=== PATIENT | male | born 1955 | race African-American/Black ===

== ENCOUNTER → 2016-06-02 | Outpatient (CLI) | payer MEDICARE, OTHER | LOC: RAD 08:24 | PROVIDERS: ATTEND Internal Medicine | DX: D48.0 Neoplasm of uncertain behavior of bone and articular cartilage (principal) | CPT/HCPCS: 78306; A9503; Q9969 ==

== ENCOUNTER → 2016-06-08 | Outpatient (CLI) | payer MEDICARE, OTHER | LOC: RAD 14:52 | PROVIDERS: ATTEND Internal Medicine | DX: D48.0 Neoplasm of uncertain behavior of bone and articular cartilage (principal) | CPT/HCPCS: 77075 ==

== ENCOUNTER → 2017-01-05 | Outpatient (CLI) | payer MEDICARE, OTHER ==
--- NOTE | 2017-01-05 17:25 | RADIOLOGY REPORT (SQ) ---
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 TECHNIQUE: Blood glucose level was verified. Above dose of FDG was injected intravenously. 2-D seg mented attenuation correction images were obtained from the base of the skull to the midthighs. Nonc ontrast CT images were obtained for attenuation correction and fusion with emission images. CT image s were performed without oral or intravenous contrast and are not sensitive for parenchymal lesions. A series of overlapping emission PET images were obtained. Images reviewed and manipulated at [facility] by the radiologist. Images stored on PACS. LIMITATIONS: None. FINDINGS: HEAD AND NECK: No areas of abnormal metabolic activity in the soft tissues of the head and neck. CHEST: No areas of abnormal metabolic activity in the chest. ABDOMEN AND PELVIS: No areas of abnormal metabolic activity in the abdomen or pelvis. Expected physi ologic activity is present in the genitourinary system and bowel. PROXIMAL LOWER EXTREMITIES: No areas of abnormal metabolic activity in the soft tissues of the lower extremities. BONES: No abnormal metabolic activity in the visualized skeleton. Coarse trabecular pattern is T12, hemangioma versus Paget's disease. This is similar compared to MRI 03/24/2008. ADDITION[address] CT FINDINGS: Post prostatectomy. Mild lower lumbar facet arthropathy. Multilevel lumbar degenerative disc changes OTHER: Liver background activity SUV 2.3. Blood pool background activity 1.9 SUV. IMPRESSION: No hypermetabolic lesions worrisome for metastatic disease TECHNICAL DOCUMENTATION: JOB ID: [id number] [employer]- All Rights Reserved
== END ==
LOC: RAD 10:07
PROVIDERS: ATTEND Internal Medicine
DX: C61 Malignant neoplasm of prostate (principal); D48.0 Neoplasm of uncertain behavior of bone and articular cartilage
CPT/HCPCS: 78815; A9552

== ENCOUNTER → 2017-09-07 | Outpatient (CLI) | payer MEDICARE, OTHER ==
[2017-09-07 11:30] LABS: ANION GAP 16 (5-19); BLOOD UREA NITROGEN 34 mg/dL (7-20); CALCIUM 9.5 mg/dL (8.4-10.2); CARBON DIOXIDE 25 mmol/L (22-30); CHLORIDE 107 mmol/L (98-107); GLUCOSE 102 mg/dL (75-110); POTASSIUM 5.2 mmol/L (3.6-5.0); SODIUM 147.7 mmol/L (137-145)
== END ==
LOC: OD 10:23
PROVIDERS: ATTEND Internal Medicine Nephrology
DX: N17.9 Acute kidney failure, unspecified (principal)
CPT/HCPCS: 36415; 80048

== ENCOUNTER → 2017-09-12 | Outpatient (CLI) | payer MEDICARE, OTHER ==
[2017-09-12 12:53] LABS: HEMOGLOBIN 11.7 g/dL (13.5-17.0); MEAN CORPUSCULAR HEMOGLOBIN 28.8 pg (27.0-33.4); MEAN CORPUSCULAR HGB CONC 33.4 g/dL (32.0-36.0); MEAN CORPUSCULAR VOLUME 86 fl (80-97); PLATELET COUNT 297 10^3/uL (150-450); RED BLOOD COUNT 4.06 10^6/uL (4.35-5.55); RED CELL DISTRIBUTION WIDTH 15.3 % (11.5-14.0); WHITE BLOOD COUNT 4.9 10^3/uL (4.0-10.5)
[2017-09-12 13:16] LABS: ALANINE AMINOTRANSFERASE 28 U/L (21-72); ALBUMIN 4.9 g/dL (3.5-5.0); ALKALINE PHOSPHATASE 76 U/L (38-126); ANION GAP 18 (5-19); ASPARTATE AMINO TRANSFERASE 22 U/L (17-59); BILIRUBIN,DIRECT 0.2 mg/dL (0.0-0.4); BILIRUBIN,TOTAL 0.2 mg/dL (0.2-1.3); BLOOD UREA NITROGEN 28 mg/dL (7-20); CALCIUM 10.4 mg/dL (8.4-10.2); CARBON DIOXIDE 26 mmol/L (22-30); CHLORIDE 105 mmol/L (98-107); GLUCOSE 101 mg/dL (75-110); POTASSIUM 4.9 mmol/L (3.6-5.0); SODIUM 148.9 mmol/L (137-145); TOTAL PROTEIN 8.1 g/dL (6.3-8.2)
== END ==
LOC: OD 11:47
PROVIDERS: ATTEND Psychiatry & Neurology Neurology
DX: Z79.899 Other long term (current) drug therapy (principal); G40.909 Epilepsy, unspecified, not intractable, without status epilepticus
CPT/HCPCS: 36415; 80053; 80164; 80175; 85027

== ENCOUNTER → 2017-12-06 | Outpatient (CLI) | payer MEDICARE, OTHER ==
[2017-12-06 11:46] LABS: ABSOLUTE EOSINOPHILS # (AUTO) 0.3 10^3/uL (0.0-0.6); ABSOLUTE LYMPHOCYTES (AUTO) 1.9 10^3/uL (0.5-4.7); ABSOLUTE MONOCYTES (AUTO) 0.7 10^3/uL (0.1-1.4); BASOPHILS % (AUTO) 0.9 % (0-2); EOSINOPHILS % (AUTO) 6.8 % (0-6); HEMATOCRIT 35.7 % (37.9-51.0); HEMOGLOBIN 11.6 g/dL (13.5-17.0); LYMPHOCYTES % (AUTO) 38.2 % (13-45); MEAN CORPUSCULAR HEMOGLOBIN 28.4 pg (27.0-33.4); MEAN CORPUSCULAR HGB CONC 32.5 g/dL (32.0-36.0); MEAN CORPUSCULAR VOLUME 87 fl (80-97); PLATELET COUNT 280 10^3/uL (150-450); RED BLOOD COUNT 4.09 10^6/uL (4.35-5.55); RED CELL DISTRIBUTION WIDTH 15.6 % (11.5-14.0); SEGMENTED NEUTROPHILS % (AUTO) 40.1 % (42-78); TOTAL CELLS COUNTED % (AUTO) 100 %
[2017-12-06 12:44] LABS: ALBUMIN 4.7 g/dL (3.5-5.0); ANION GAP 14 (5-19); BLOOD UREA NITROGEN 26 mg/dL (7-20); CALCIUM 9.8 mg/dL (8.4-10.2); CARBON DIOXIDE 26 mmol/L (22-30); CHLORIDE 105 mmol/L (98-107); GLUCOSE 85 mg/dL (75-110); PHOSPHORUS 4.9 mg/dL (2.5-4.5); POTASSIUM 5.1 mmol/L (3.6-5.0); SODIUM 144.6 mmol/L (137-145); URIC ACID 4.6 mg/dL (3.5-8.5)
[2017-12-07 11:40] LABS: CREATININE URINE 178.1 mg/dL (Not Estab.)
[2017-12-08 12:15] LABS: MICROALBUMIN URINE 485.2 ug/mL (Not Estab.)
== END ==
LOC: OD 10:38
PROVIDERS: ATTEND Internal Medicine Nephrology
DX: N18.4 Chronic kidney disease, stage 4 (severe) (principal); E11.21 Type 2 diabetes mellitus with diabetic nephropathy; N25.81 Secondary hyperparathyroidism of renal origin; D63.1 Anemia in chronic kidney disease
CPT/HCPCS: 36415; 80048; 82040; 82043; 82306; 82570; 83970; 84100; 84550; 85025

== ENCOUNTER → 2018-06-20 | Outpatient (CLI) | payer MEDICARE, OTHER ==
[2018-06-20 07:52] LABS: ABSOLUTE EOSINOPHILS # (AUTO) 0.1 10^3/uL (0.0-0.6); ABSOLUTE LYMPHOCYTES (AUTO) 1.5 10^3/uL (0.5-4.7); ABSOLUTE MONOCYTES (AUTO) 0.4 10^3/uL (0.1-1.4); ABSOLUTE NEUT (AUTO) 1.8 10^3/uL (1.7-8.2); BASOPHILS % (AUTO) 0.9 % (0-2); EOSINOPHILS % (AUTO) 3.5 % (0-6); HEMATOCRIT 33.8 % (37.9-51.0); HEMOGLOBIN 11.3 g/dL (13.5-17.0); LYMPHOCYTES % (AUTO) 37.9 % (13-45); MEAN CORPUSCULAR HEMOGLOBIN 29.3 pg (27.0-33.4); MEAN CORPUSCULAR HGB CONC 33.4 g/dL (32.0-36.0); MEAN CORPUSCULAR VOLUME 88 fl (80-97); MONOCYTES % (AUTO) 11.1 % (3-13); PLATELET COUNT 279 10^3/uL (150-450); RED BLOOD COUNT 3.85 10^6/uL (4.35-5.55); RED CELL DISTRIBUTION WIDTH 15.7 % (11.5-14.0); SEGMENTED NEUTROPHILS % (AUTO) 46.6 % (42-78); TOTAL CELLS COUNTED % (AUTO) 100 %; WHITE BLOOD COUNT 3.9 10^3/uL (4.0-10.5)
[2018-06-20 08:09] LABS: APPEARANCE,URINE CLEAR; BILIRUBIN,URINE NEGATIVE (NEGATIVE); COLOR,URINE YELLOW; GLUCOSE, URINE NEGATIVE (NEGATIVE); KETONES,URINE NEGATIVE (NEGATIVE); LEUKOCYTE ESTERASE,URINE NEGATIVE (NEGATIVE); NITRITE,URINE NEGATIVE (NEGATIVE); PROTEIN,URINE 100 mg/dL (NEGATIVE); URINE SPECIFIC GRAVITY 1.015; UROBILINOGEN,URINE NEGATIVE mg/dL (<2.0)
[2018-06-20 08:10] LABS: ANION GAP 8 (5-19); BLOOD UREA NITROGEN 27 mg/dL (7-20); CALCIUM 9.6 mg/dL (8.4-10.2); CARBON DIOXIDE 30 mmol/L (22-30); CHLORIDE 106 mmol/L (98-107); GLUCOSE 97 mg/dL (75-110); POTASSIUM 4.6 mmol/L (3.6-5.0); SODIUM 144.4 mmol/L (137-145); URIC ACID 3.7 mg/dL (3.5-8.5)
[2018-06-21 12:38] LABS: CREATININE URINE 180.1 mg/dL (Not Estab.)
[2018-06-21 12:42] LABS: MICROALBUMIN URINE 1143.9 ug/mL (Not Estab.)
== END ==
LOC: OD 07:19
PROVIDERS: ATTEND Internal Medicine Nephrology
DX: E11.22 Type 2 diabetes mellitus with diabetic chronic kidney disease (principal); N18.4 Chronic kidney disease, stage 4 (severe); E11.21 Type 2 diabetes mellitus with diabetic nephropathy; D63.1 Anemia in chronic kidney disease; N25.81 Secondary hyperparathyroidism of renal origin; M10.9 Gout, unspecified
CPT/HCPCS: 36415; 80048; 81001; 82043; 82570; 83970; 84550; 85025

== ENCOUNTER → 2018-08-12 | Outpatient (CLI) | payer MEDICARE, OTHER ==
[2018-08-12 08:57] LABS: ABSOLUTE EOSINOPHILS # (AUTO) 0.2 10^3/uL (0.0-0.6); ABSOLUTE LYMPHOCYTES (AUTO) 1.4 10^3/uL (0.5-4.7); ABSOLUTE MONOCYTES (AUTO) 0.5 10^3/uL (0.1-1.4); ABSOLUTE NEUT (AUTO) 1.7 10^3/uL (1.7-8.2); BASOPHILS % (AUTO) 1.1 % (0-2); EOSINOPHILS % (AUTO) 4.3 % (0-6); HEMATOCRIT 31.7 % (37.9-51.0); HEMOGLOBIN 10.7 g/dL (13.5-17.0); LYMPHOCYTES % (AUTO) 37.1 % (13-45); MEAN CORPUSCULAR HGB CONC 33.7 g/dL (32.0-36.0); MEAN CORPUSCULAR VOLUME 89 fl (80-97); MONOCYTES % (AUTO) 13.3 % (3-13); PLATELET COUNT 252 10^3/uL (150-450); RED BLOOD COUNT 3.55 10^6/uL (4.35-5.55); RED CELL DISTRIBUTION WIDTH 15.7 % (11.5-14.0); SEGMENTED NEUTROPHILS % (AUTO) 44.2 % (42-78); TOTAL CELLS COUNTED % (AUTO) 100 %; WHITE BLOOD COUNT 3.9 10^3/uL (4.0-10.5)
[2018-08-12 09:18] LABS: ALANINE AMINOTRANSFERASE 23 U/L (21-72); ALBUMIN 4.1 g/dL (3.5-5.0); ALKALINE PHOSPHATASE 75 U/L (38-126); ANION GAP 9 (5-19); ASPARTATE AMINO TRANSFERASE 25 U/L (17-59); BILIRUBIN,DIRECT 0.2 mg/dL (0.0-0.4); BILIRUBIN,TOTAL 0.2 mg/dL (0.2-1.3); BLOOD UREA NITROGEN 39 mg/dL (7-20); CALCIUM 9.5 mg/dL (8.4-10.2); CARBON DIOXIDE 28 mmol/L (22-30); CHLORIDE 101 mmol/L (98-107); CHOLESTEROL 162.53 mg/dL (0-200); GLUCOSE 84 mg/dL (75-110); TRIGLYCERIDES 88 mg/dL (<150)
[2018-08-12 09:29] LABS: DIRECT LDL 55 mg/dL (<100)
== END ==
LOC: OD 07:18
PROVIDERS: ATTEND Psychiatry & Neurology Psychiatry
DX: Z79.899 Other long term (current) drug therapy (principal); F41.1 Generalized anxiety disorder; F33.9 Major depressive disorder, recurrent, unspecified; F40.01 Agoraphobia with panic disorder; F51.01 Primary insomnia; F43.10 Post-traumatic stress disorder, unspecified
CPT/HCPCS: 36415; 80053; 80061; 84443; 85025

== ENCOUNTER → 2018-09-19 | Outpatient (CLI) | payer MEDICARE, OTHER ==
[2018-09-19 08:24] LABS: ABSOLUTE EOSINOPHILS # (AUTO) 0.2 10^3/uL (0.0-0.6); ABSOLUTE MONOCYTES (AUTO) 0.6 10^3/uL (0.1-1.4); ABSOLUTE NEUT (AUTO) 2.1 10^3/uL (1.7-8.2); BASOPHILS % (AUTO) 0.8 % (0-2); EOSINOPHILS % (AUTO) 3.7 % (0-6); HEMATOCRIT 31.6 % (37.9-51.0); HEMOGLOBIN 10.5 g/dL (13.5-17.0); MEAN CORPUSCULAR HEMOGLOBIN 29.9 pg (27.0-33.4); MEAN CORPUSCULAR HGB CONC 33.3 g/dL (32.0-36.0); MEAN CORPUSCULAR VOLUME 90 fl (80-97); MONOCYTES % (AUTO) 11.4 % (3-13); PLATELET COUNT 315 10^3/uL (150-450); RED BLOOD COUNT 3.52 10^6/uL (4.35-5.55); RED CELL DISTRIBUTION WIDTH 14.9 % (11.5-14.0); SEGMENTED NEUTROPHILS % (AUTO) 43.1 % (42-78); TOTAL CELLS COUNTED % (AUTO) 100 %; WHITE BLOOD COUNT 4.9 10^3/uL (4.0-10.5)
[2018-09-19 08:44] LABS: ALBUMIN 4.7 g/dL (3.5-5.0); ANION GAP 10 (5-19); BLOOD UREA NITROGEN 37 mg/dL (7-20); CALCIUM 10.4 mg/dL (8.4-10.2); CARBON DIOXIDE 28 mmol/L (22-30); CHLORIDE 104 mmol/L (98-107); GLUCOSE 99 mg/dL (75-110); IRON(TIBC) 57.2 ug/dL (49-181); PHOSPHORUS 5.2 mg/dL (2.5-4.5); POTASSIUM 4.6 mmol/L (3.6-5.0); URIC ACID 5.6 mg/dL (3.5-8.5)
[2018-09-20 12:37] LABS: CREATININE URINE 132.2 mg/dL (Not Estab.)
[2018-09-22 19:10] LABS: MICROALBUMIN URINE 897.7 ug/mL (Not Estab.)
== END ==
LOC: OD 07:37
PROVIDERS: ATTEND Internal Medicine Nephrology
DX: N18.4 Chronic kidney disease, stage 4 (severe) (principal); D64.9 Anemia, unspecified
CPT/HCPCS: 36415; 80069; 82043; 82306; 82570; 82728; 83540; 83550; 83970; 84550; 85025

== ENCOUNTER → 2018-12-26 | Outpatient (CLI) | payer MEDICARE, OTHER ==
[2018-12-26 13:17] LABS: ABSOLUTE LYMPHOCYTES (AUTO) 1.2 10^3/uL (0.5-4.7); ABSOLUTE MONOCYTES (AUTO) 1.1 10^3/uL (0.1-1.4); ABSOLUTE NEUT (AUTO) 7.4 10^3/uL (1.7-8.2); BASOPHILS % (AUTO) 0.3 % (0-2); HEMATOCRIT 30.6 % (37.9-51.0); HEMOGLOBIN 10.2 g/dL (13.5-17.0); LYMPHOCYTES % (AUTO) 12.6 % (13-45); MEAN CORPUSCULAR HEMOGLOBIN 30.4 pg (27.0-33.4); MEAN CORPUSCULAR HGB CONC 33.5 g/dL (32.0-36.0); MEAN CORPUSCULAR VOLUME 91 fl (80-97); MONOCYTES % (AUTO) 11.6 % (3-13); PLATELET COUNT 289 10^3/uL (150-450); RED BLOOD COUNT 3.37 10^6/uL (4.35-5.55); RED CELL DISTRIBUTION WIDTH 16.2 % (11.5-14.0); SEGMENTED NEUTROPHILS % (AUTO) 75.5 % (42-78); TOTAL CELLS COUNTED % (AUTO) 100 %; WHITE BLOOD COUNT 9.7 10^3/uL (4.0-10.5)
[2018-12-26 13:24] LABS: ANION GAP 9 (5-19); BLOOD UREA NITROGEN 48 mg/dL (7-20); CALCIUM 9.7 mg/dL (8.4-10.2); CARBON DIOXIDE 20 mmol/L (22-30); CHLORIDE 110 mmol/L (98-107); GLUCOSE 112 mg/dL (75-110); PHOSPHORUS 4.3 mg/dL (2.5-4.5); POTASSIUM 4.7 mmol/L (3.6-5.0)
== END ==
LOC: OD 11:49
PROVIDERS: ATTEND Internal Medicine Nephrology
DX: E11.22 Type 2 diabetes mellitus with diabetic chronic kidney disease (principal); I12.9 Hypertensive chronic kidney disease with stage 1 through stage 4 chronic kidney disease, or unspecified chronic kidney disease; N18.4 Chronic kidney disease, stage 4 (severe); D63.1 Anemia in chronic kidney disease; R80.9 Proteinuria, unspecified
CPT/HCPCS: 36415; 80048; 82043; 82570; 84100; 85025

== ENCOUNTER → 2019-03-24 | Outpatient (CLI) | payer MEDICARE, OTHER ==
[2019-03-24 08:32] LABS: HEMATOCRIT 27.9 % (37.9-51.0); HEMOGLOBIN 9.4 g/dL (13.5-17.0); MEAN CORPUSCULAR HEMOGLOBIN 32.6 pg (27.0-33.4); MEAN CORPUSCULAR HGB CONC 33.6 g/dL (32.0-36.0); MEAN CORPUSCULAR VOLUME 97 fl (80-97); PLATELET COUNT 221 10^3/uL (150-450); RED BLOOD COUNT 2.88 10^6/uL (4.35-5.55); RED CELL DISTRIBUTION WIDTH 17.7 % (11.5-14.0)
[2019-03-24 08:32] LABS: APPEARANCE,URINE CLEAR; BILIRUBIN,URINE NEGATIVE (NEGATIVE); COLOR,URINE YELLOW; GLUCOSE, URINE NEGATIVE (NEGATIVE); KETONES,URINE NEGATIVE (NEGATIVE); LEUKOCYTE ESTERASE,URINE NEGATIVE (NEGATIVE); NITRITE,URINE NEGATIVE (NEGATIVE); PROTEIN,URINE 30 mg/dL (NEGATIVE); URINE SPECIFIC GRAVITY 1.014; UROBILINOGEN,URINE NEGATIVE mg/dL (<2.0)
[2019-03-24 08:42] LABS: WHITE BLOOD COUNT 1.6 10^3/uL (4.0-10.5)
[2019-03-24 09:01] LABS: ABSOLUTE LYMPHOCYTES# (MANUAL) 0.2 10^3/uL (0.5-4.7); ABSOLUTE MONOCYTES # (MANUAL) 0.5 10^3/uL (0.1-1.4); ALBUMIN 3.7 g/dL (3.5-5.0); ANION GAP 6 (5-19); BASOPHILS % (MANUAL) 0 % (0-2); BLOOD UREA NITROGEN 27 mg/dL (7-20); CARBON DIOXIDE 29 mmol/L (22-30); CHLORIDE 105 mmol/L (98-107); EOSINOPHILS % (MANUAL) 12 % (0-6); GLUCOSE 87 mg/dL (75-110); LYMPHOCYTES % (MANUAL) 14 % (13-45); MONOCYTES % (MANUAL) 32 % (3-13); POTASSIUM 4.6 mmol/L (3.6-5.0); SEGMENTED NEUTROPHILS % (MAN) 42 % (42-78); TOTAL CELLS COUNTED 50
[2019-03-24 09:05] LABS: ANISOCYTOSIS 1+; PLATELET COMMENT ADEQUATE
[2019-03-25 10:09] LABS: PATH REVIEW PATHOLOGIST REVIEWED
[2019-03-25 14:37] LABS: CREATININE URINE 173.2 mg/dL (Not Estab.); MICROALBUMIN URINE 175.2 ug/mL (Not Estab.)
== END ==
LOC: OD 08:06
PROVIDERS: ATTEND Internal Medicine Nephrology
DX: I12.9 Hypertensive chronic kidney disease with stage 1 through stage 4 chronic kidney disease, or unspecified chronic kidney disease (principal); N18.4 Chronic kidney disease, stage 4 (severe); E11.22 Type 2 diabetes mellitus with diabetic chronic kidney disease; D63.1 Anemia in chronic kidney disease; N25.81 Secondary hyperparathyroidism of renal origin
CPT/HCPCS: 36415; 80069; 81001; 82043; 82306; 82570; 83970; 85025

== ENCOUNTER → 2019-06-02 | Outpatient (CLI) | payer MEDICARE, OTHER ==
[2019-06-02 10:11] LABS: HEMATOCRIT 28.5 % (37.9-51.0); HEMOGLOBIN 9.5 g/dL (13.5-17.0); MEAN CORPUSCULAR HEMOGLOBIN 31.4 pg (27.0-33.4); MEAN CORPUSCULAR HGB CONC 33.3 g/dL (32.0-36.0); MEAN CORPUSCULAR VOLUME 94 fl (80-97); PLATELET COUNT 170 10^3/uL (150-450); RED BLOOD COUNT 3.02 10^6/uL (4.35-5.55); RED CELL DISTRIBUTION WIDTH 19.6 % (11.5-14.0)
[2019-06-02 10:33] LABS: ANION GAP 11 (5-19); BLOOD UREA NITROGEN 37 mg/dL (7-20); CALCIUM 9.5 mg/dL (8.4-10.2); CARBON DIOXIDE 23 mmol/L (22-30); CHLORIDE 105 mmol/L (98-107); GLUCOSE 100 mg/dL (75-110); POTASSIUM 4.6 mmol/L (3.6-5.0)
[2019-06-02 10:35] LABS: WHITE BLOOD COUNT 1.6 10^3/uL (4.0-10.5)
[2019-06-02 10:38] LABS: ABSOLUTE LYMPHOCYTES# (MANUAL) 0.4 10^3/uL (0.5-4.7); ABSOLUTE MONOCYTES # (MANUAL) 0.3 10^3/uL (0.1-1.4); BASOPHILS % (MANUAL) 0 % (0-2); EOSINOPHILS % (MANUAL) 8 % (0-6); LYMPHOCYTES % (MANUAL) 24 % (13-45); MONOCYTES % (MANUAL) 18 % (3-13); SEGMENTED NEUTROPHILS % (MAN) 50 % (42-78); TOTAL CELLS COUNTED 50
[2019-06-02 10:40] LABS: ANISOCYTOSIS 2+; OVALOCYTES SLIGHT; PLATELET COMMENT ADEQUATE; POIKILOCYTOSIS 1+; POLYCHROMASIA SLIGHT; SCHISTOCYTES 1+; TEAR DROP CELLS SLIGHT
[2019-06-03 11:23] LABS: PATH REVIEW PATHOLOGIST REVIEWED
[2019-06-03 14:36] LABS: CREATININE URINE 195.6 mg/dL (Not Estab.); MICROALBUMIN URINE 131.5 ug/mL (Not Estab.)
== END ==
LOC: OD 09:38
PROVIDERS: ATTEND Internal Medicine Nephrology
DX: E11.22 Type 2 diabetes mellitus with diabetic chronic kidney disease (principal); I12.9 Hypertensive chronic kidney disease with stage 1 through stage 4 chronic kidney disease, or unspecified chronic kidney disease; N18.4 Chronic kidney disease, stage 4 (severe); D63.1 Anemia in chronic kidney disease; N25.81 Secondary hyperparathyroidism of renal origin
CPT/HCPCS: 36415; 80048; 82043; 82570; 83970; 85025

== ENCOUNTER → 2019-09-17 | Outpatient (CLI) | payer MEDICARE, OTHER ==
[2019-09-17 09:25] LABS: HEMATOCRIT 31.8 % (37.9-51.0); HEMOGLOBIN 11.1 g/dL (13.5-17.0); MEAN CORPUSCULAR HEMOGLOBIN 32.4 pg (27.0-33.4); MEAN CORPUSCULAR VOLUME 93 fl (80-97); PLATELET COUNT 237 10^3/uL (150-450); RED BLOOD COUNT 3.43 10^6/uL (4.35-5.55); RED CELL DISTRIBUTION WIDTH 15.5 % (11.5-14.0)
[2019-09-17 09:42] LABS: ALBUMIN 4.4 g/dL (3.5-5.0); ALKALINE PHOSPHATASE 40 U/L (38-126); ANION GAP 10 (5-19); ASPARTATE AMINO TRANSFERASE 17 U/L (17-59); BILIRUBIN,TOTAL 0.2 mg/dL (0.2-1.3); BLOOD UREA NITROGEN 38 mg/dL (7-20); CALCIUM 10.2 mg/dL (8.4-10.2); CARBON DIOXIDE 21 mmol/L (22-30); CHLORIDE 109 mmol/L (98-107); GLUCOSE 94 mg/dL (75-110); POTASSIUM 4.1 mmol/L (3.6-5.0); TOTAL PROTEIN 7.1 g/dL (6.3-8.2)
== END ==
LOC: OD 08:40
PROVIDERS: ATTEND Psychiatry & Neurology Neurology
DX: G40.909 Epilepsy, unspecified, not intractable, without status epilepticus (principal)
CPT/HCPCS: 36415; 80053; 80164; 80175; 85027

== ENCOUNTER → 2019-09-26 | Outpatient (CLI) | payer MEDICARE, OTHER ==
[2019-09-26 08:28] LABS: ABSOLUTE EOSINOPHILS # (AUTO) 0.2 10^3/uL (0.0-0.6); ABSOLUTE LYMPHOCYTES (AUTO) 1.2 10^3/uL (0.5-4.7); ABSOLUTE MONOCYTES (AUTO) 0.7 10^3/uL (0.1-1.4); ABSOLUTE NEUT (AUTO) 1.6 10^3/uL (1.7-8.2); BASOPHILS % (AUTO) 0.9 % (0-2); EOSINOPHILS % (AUTO) 5.2 % (0-6); HEMATOCRIT 31.5 % (37.9-51.0); HEMOGLOBIN 10.8 g/dL (13.5-17.0); LYMPHOCYTES % (AUTO) 32.2 % (13-45); MEAN CORPUSCULAR HEMOGLOBIN 31.4 pg (27.0-33.4); MEAN CORPUSCULAR HGB CONC 34.4 g/dL (32.0-36.0); MEAN CORPUSCULAR VOLUME 92 fl (80-97); MONOCYTES % (AUTO) 18.8 % (3-13); PLATELET COUNT 222 10^3/uL (150-450); RED BLOOD COUNT 3.44 10^6/uL (4.35-5.55); RED CELL DISTRIBUTION WIDTH 15.5 % (11.5-14.0); SEGMENTED NEUTROPHILS % (AUTO) 42.9 % (42-78); TOTAL CELLS COUNTED % (AUTO) 100 %; WHITE BLOOD COUNT 3.6 10^3/uL (4.0-10.5)
[2019-09-26 08:45] LABS: ALBUMIN 4.3 g/dL (3.5-5.0); ANION GAP 13 (5-19); BLOOD UREA NITROGEN 32 mg/dL (7-20); CALCIUM 9.6 mg/dL (8.4-10.2); CARBON DIOXIDE 19 mmol/L (22-30); CHLORIDE 108 mmol/L (98-107); GLUCOSE 106 mg/dL (75-110); PHOSPHORUS 4.8 mg/dL (2.5-4.5); POTASSIUM 4.6 mmol/L (3.6-5.0)
[2019-09-26 09:54] LABS: APPEARANCE,URINE CLEAR; BILIRUBIN,URINE NEGATIVE (NEGATIVE); COLOR,URINE YELLOW; GLUCOSE, URINE NEGATIVE (NEGATIVE); KETONES,URINE NEGATIVE (NEGATIVE); LEUKOCYTE ESTERASE,URINE NEGATIVE (NEGATIVE); NITRITE,URINE NEGATIVE (NEGATIVE); PROTEIN,URINE 100 mg/dL (NEGATIVE); URINE SPECIFIC GRAVITY 1.015; UROBILINOGEN,URINE NEGATIVE mg/dL (<2.0)
[2019-09-27 13:37] LABS: CREATININE URINE 177.4 mg/dL (Not Estab.)
[2019-09-28 08:34] LABS: MICROALBUMIN URINE 476.5 ug/mL (Not Estab.)
== END ==
LOC: OD 08:06
PROVIDERS: ATTEND Internal Medicine Nephrology
DX: E11.22 Type 2 diabetes mellitus with diabetic chronic kidney disease (principal); I12.9 Hypertensive chronic kidney disease with stage 1 through stage 4 chronic kidney disease, or unspecified chronic kidney disease; N18.4 Chronic kidney disease, stage 4 (severe); N25.81 Secondary hyperparathyroidism of renal origin; D64.9 Anemia, unspecified
CPT/HCPCS: 36415; 80069; 81001; 82043; 82306; 82570; 83970; 85025

== ENCOUNTER → 2020-02-05 | Outpatient (CLI) | payer MEDICARE, OTHER ==
[2020-02-05 08:36] LABS: ABSOLUTE EOSINOPHILS # (AUTO) 0.2 10^3/uL (0.0-0.6); ABSOLUTE LYMPHOCYTES (AUTO) 0.9 10^3/uL (0.5-4.7); ABSOLUTE MONOCYTES (AUTO) 0.7 10^3/uL (0.1-1.4); ABSOLUTE NEUT (AUTO) 1.9 10^3/uL (1.7-8.2); BASOPHILS % (AUTO) 1.1 % (0-2); EOSINOPHILS % (AUTO) 5.9 % (0-6); HEMATOCRIT 32.2 % (37.9-51.0); HEMOGLOBIN 11.3 g/dL (13.5-17.0); LYMPHOCYTES % (AUTO) 24.5 % (13-45); MEAN CORPUSCULAR HEMOGLOBIN 31.8 pg (27.0-33.4); MEAN CORPUSCULAR HGB CONC 34.9 g/dL (32.0-36.0); MEAN CORPUSCULAR VOLUME 91 fl (80-97); MONOCYTES % (AUTO) 18.9 % (3-13); PLATELET COUNT 228 10^3/uL (150-450); RED BLOOD COUNT 3.54 10^6/uL (4.35-5.55); RED CELL DISTRIBUTION WIDTH 14.6 % (11.5-14.0); SEGMENTED NEUTROPHILS % (AUTO) 49.6 % (42-78); TOTAL CELLS COUNTED % (AUTO) 100 %; WHITE BLOOD COUNT 3.8 10^3/uL (4.0-10.5)
[2020-02-05 08:51] LABS: APPEARANCE,URINE CLEAR; BILIRUBIN,URINE NEGATIVE (NEGATIVE); COLOR,URINE STRAW; GLUCOSE, URINE NEGATIVE (NEGATIVE); KETONES,URINE NEGATIVE (NEGATIVE); LEUKOCYTE ESTERASE,URINE NEGATIVE (NEGATIVE); NITRITE,URINE NEGATIVE (NEGATIVE); PROTEIN,URINE 30 mg/dL (NEGATIVE); URINE SPECIFIC GRAVITY 1.011; UROBILINOGEN,URINE NEGATIVE mg/dL (<2.0)
[2020-02-05 09:02] LABS: ALBUMIN 4.6 g/dL (3.5-5.0); ANION GAP 13 (5-19); BLOOD UREA NITROGEN 43 mg/dL (7-20); CALCIUM 10.1 mg/dL (8.4-10.2); CARBON DIOXIDE 20 mmol/L (22-30); CHLORIDE 109 mmol/L (98-107); GLUCOSE 105 mg/dL (75-110); IRON(TIBC) 63.4 ug/dL (49-181); PHOSPHORUS 4.2 mg/dL (2.5-4.5); POTASSIUM 4.9 mmol/L (3.6-5.0)
[2020-02-06 11:37] LABS: CREATININE URINE 95.6 mg/dL (Not Estab.); MICROALBUMIN URINE 254.7 ug/mL (Not Estab.)
== END ==
LOC: OD 08:12
PROVIDERS: ATTEND Internal Medicine Nephrology
DX: N18.4 Chronic kidney disease, stage 4 (severe) (principal); D63.1 Anemia in chronic kidney disease
CPT/HCPCS: 36415; 80069; 81001; 82043; 82306; 82570; 83540; 83550; 83970; 85025

== ENCOUNTER 2020-05-24 05:29 | Day surgery (SDC) | payer MEDICARE, OTHER ==
--- NOTE | 2020-05-20 20:02 | EKG REPORT ---
SEVERITY:- ABNORMAL ECG - SINUS RHYTHM PROBABLE ANTEROSEPTAL INFARCT, OLD : Confirmed by: Fatou Wakefield MD 20-May-2020 20:01:16
[~2020-05-24 05:29] MED LIST: CEFAZOLIN 2 GM/D5W RTU 2 GM/50 ML RTUPB IV PRN; NORMAL SALINE 1000 ML (RENAL PATIENTS) IV PRN
[2020-05-24] MEDS ORDERED: CEFAZOLIN 2 GM/D5W RTU 2 GM/50 ML RTUPB IV ONE (05:51)
[2020-05-24] MEDS ORDERED: LIDOCAINE 0.5% INJ-PF (5 MG/ML) 50 ML SDV ONE (06:16)
[2020-05-24] MEDS ORDERED: FENTANYL CITRATE INJ/PF 100 MCG/2 ML AMPUL ONE (06:17)
[2020-05-24] MEDS ORDERED: MIDAZOLAM 2 MG/2 ML INJ ONE (06:17)
[2020-05-24] MEDS ORDERED: ONDANSETRON HCL INJ/PF 4 MG/2 ML SDV ONE (06:17)
[2020-05-24] MEDS ORDERED: PROPOFOL INJ 200 MG/20 ML VIAL IV ONE (06:18)
[2020-05-24 06:36] LABS: POTASSIUM 3.9 mmol/L (3.6-5.0)
[2020-05-24] MEDS ORDERED: EPHEDRINE SULFATE INJ 50 MG/1 ML AMPULE ONE (06:41)
[2020-05-24] MEDS ORDERED: HEPARIN SOD (PORCINE) 1,000 UNIT/ML 1 ML VIAL ONE (07:23)
[2020-05-24] MEDS ORDERED: SUCCINYLCHOLINE CHLORIDE INJ 200 MG/10 ML VIAL ONE (08:13)
--- NOTE | 2020-05-24 08:51 | RADIOLOGY REPORT (SQ) ---
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 FLUOROSCOPY TIME: 1 point a minutes Spot images saved to PACS. TECHNIQUE: Intra-operative images acquired during surgical procedure to evaluate progress. NUMBER OF IMAGES: 5 LIMITATIONS: None. FINDINGS: Fluoroscopy was provided for intraoperative procedure. Please refer to the operative repo rt for further discussion. IMPRESSION: IMAGE(S) OBTAINED DURING PROCEDURE. COMMENT: Quality ID [id number]: Final reports for procedures using fluoroscopy that document radiation exp osure indices, or exposure time and number of fluorographic images (if radiation exposure indices are not available) Please consult full operative report of the attending physician for description of the procedure. TECHNICAL DOCUMENTATION: JOB ID: [id number] 2010 [employer]- All Rights Reserved Reading location - IP/workstation name: [email or web address]
[2020-05-24] MEDS ORDERED: DIPHENHYDRAMINE HCL 50 MG/ML VIAL IV PRN (09:13)
[2020-05-24] MEDS ORDERED: FENTANYL CITRATE INJ/PF 100 MCG/2 ML AMPUL IV PRN ×3 (09:13)
[2020-05-24] MEDS ORDERED: ONDANSETRON HCL INJ/PF 4 MG/2 ML SDV IV PRN (09:13)
[2020-05-24] MEDS ORDERED: MORPHINE SULFATE 10 MG/ML INJ IV PRN (09:13)
[2020-05-24] MEDS ORDERED: PROMETHAZINE HCL INJ 25 MG/1 ML VIAL IV PRN ×2 (09:13)
[2020-05-24] MEDS ORDERED: MEPERIDINE HCL/PF INJ 25 MG/1 ML DISP.SYRIN IV PRN (09:13)
--- NOTE | 2020-05-24 09:44 | Operative Report ---
Nonrecallable Operative Report DATE OF SURGERY: 05/24/20 PREOPERATIVE DIAGNOSIS: renal failure POSTOPERATIVE DIAGNOSIS: Same OPERATION: Permacath placement right neck and Cassia fistula left forearm SURGEON: YENNIFER PARKS MAID SUPERVISOR: CHRISTY TAYLOR ANESTHESIA: GA TISSUE REMOVED OR ALTERED: None COMPLICATIONS: None ESTIMATED BLOOD LOSS: 50 cc INTRAOPERATIVE FINDINGS: See note PROCEDURE: Patient was brought to the operating when awake alert stable condition placed on the operative table supine position induced under general anesthesia and intubated. The right neck and left arm were prepped and draped in usual sterile fashion. After appropriate timeout and site verification the procedure commenced. Using a finding needle of 22-gauge the right internal jugular vein was accessed. The needle was then removed and then using the 16-gauge needle the vein was reaccessed and a wire was placed through the needle into the superior vena cava. The serial dilators were then placed over the wire after a small skin tulio was made in the right anterior neck. The dilator introducer combination was then placed over the wire and positioned into the right superior vena cava. Attention was then turned to the right chest a small tulio in the skin was made just lateral to the nipple and dilated with a Ximena clamp. The 32 cm PermCath was then tunneled from that point to the small skin incision in the right anterior neck where the internal jugular vein was accessed. The wire and dilator were removed and the catheter was placed into the tear-away introducer which was torn away. Fluoroscopy was utilized and identified a good curve to the catheter without kinking and the catheter withdrew and and injected easily. Catheter was then heparinized with heparinized saline solution. He was then fixed to the skin with 3-0 nylon suture. Sterile dressing was then applied. Attention was then turned to the left arm that had been previously prepped and draped. A longitudinal incision was made over the space between the pulse and the left radial artery and cephalic vein. There is approximately 8 cm long. The cephalic vein was then dissected from surrounding tissue and areolar tissue there were small perforating branches which were ligated with 3-0 silk suture. Similarly th left radial artery was isolated and dissected from the subcutaneous tissue and deep fascia. It was clear for distance of approximately 6 cm and slung with Vesseloops proximally and distally. The vessel then passed around the vein also and they were placed on traction. A small arteriotomy was then made in the left radial artery and was heparinized with a heparinized saline solution similarly a venotomy was made in the cephalic vein that was heparinized with a heparinized saline solution. An anastomosis was then ensued between the artery and the vein with 6-0 Prolene suture. Upon release of the Vesseloops a good thrill could be palpated in the cephalic vein. Hemostasis was obtained with compression and Surgicel. After good hemostasis we then closed the wound with a 3-0 Vicryl in the subcutaneous tissue and 4-0 Biosyn in the skin Steri- Strips were applied which completed the procedure. Estimated blood loss for entire procedure was 50 cc sponge needle counts were correct x2. Christy LUCERO was present for the entire procedure for help with wound retraction wound closure.
--- NOTE | 2020-05-24 09:48 | Discharge Summary ---
Discharge Summary (SDC) - Discharge Final Diagnosis: Renal failure Date of Surgery: 05/24/20 Discharge Date: 05/24/20 Condition: Good Forms: ASU Anesthesia D/C Instruction, Discharge POC-Surgical Service Prescriptions: Hydrocodone/Acetaminophen [[place] 10-325 mg Tablet] 1 tab PO Q6HP PRN #10 tablet PRN Reason: Referrals: YENNIFER DHALIWAL MD [ACTIVE STAFF] - 06/07/20 8:15 am Discharge Diet: As Tolerated Discharge Activity: Activity As Tolerated Report the Following to Your Physician Immediately: Increase in Pain, Unusual Bleeding
--- NOTE | 2020-05-24 10:48 | RADIOLOGY REPORT (SQ) ---
EXAM DESCRIPTION: CHEST SINGLE VIEW IMAGES COMPLETED DATE/TIME: 05/24/2020 10:39 am REASON FOR STUDY: S/P PERM CATH PLACEMENT COMPARISON: None. EXAM PARAMETERS: NUMBER OF VIEWS: One view. TECHNIQUE: Single frontal radiographic view of the chest acquired. RADIATION DOSE: NA LIMITATIONS: None. FINDINGS: LUNGS AND PLEURA: Right-sided PermCath has been placed. Tip overlies the SVC. No pneumot horax. Minimal right basilar atelectasis. MEDIASTINUM AND HILAR STRUCTURES: No masses. Contour normal. HEART AND VASCULAR STRUCTURES: Mild cardiac enlargement. This is accentuated by portable technique. BONES: No acute findings. HARDWARE: None in the chest. OTHER: No other significant finding. IMPRESSION: No acute findings following right-sided PermCath placement. TECHNICAL DOCUMENTATION: JOB ID: [id number] 2010 [employer]- All Rights Reserved Reading location - IP/workstation name: [id number]
[2020-05-24] MEDS ORDERED: HYDROCODONE/ACETAMINOPHEN 10-325 MG TABLET PO PRN (11:05)
[2020-05-24] MEDS ORDERED: HYDROCODONE/ACETAMINOPHEN 10-325 MG TABLET ONE (11:05)
[2020-05-24] MEDS ORDERED: LABETALOL HCL INJ 20 MG/4 ML DISP.SYRIN IV ONE (11:08)
[2020-05-24] MEDS ORDERED: LABETALOL HCL INJ 20 MG/4 ML DISP.SYRIN IV PRN ×2 (11:29→12:00)
[2020-05-24 13:35] VITALS: BP 154/90
== END 2020-05-24 12:10 | disposition home or self-care (01) ==
LOC: OROUT 05:29
PROVIDERS: ATTEND Surgery
DX: I12.0 Hypertensive chronic kidney disease with stage 5 chronic kidney disease or end stage renal disease (principal); N18.6 End stage renal disease; D63.1 Anemia in chronic kidney disease; Z01.812 Encounter for preprocedural laboratory examination; Z20.822 Contact with and (suspected) exposure to COVID-19; Z79.899 Other long term (current) drug therapy; Z96.82 Presence of neurostimulator; Z85.46 Personal history of malignant neoplasm of prostate; Z85.05 Personal history of malignant neoplasm of liver; R56.9 Unspecified convulsions; E78.5 Hyperlipidemia, unspecified
CPT/HCPCS: 36821; 36558; 93005; 36415; 82947; 84132; 71045; 77001; 93010; U0003; J2250; J3490 ×3; J3010; J1644; J2405; J2704; J0690; A9270; C9803; 1844; 87635; J0330

== ENCOUNTER 2020-05-29 11:57 | Emergency (ER) | payer MEDICARE, OTHER ==
--- NOTE | 2020-05-29 12:08 | ER Document Report ---
ED Medical Screen (RME) - General Stated Complaint: NUMBNESS IN HANDS Time Seen by Provider: 05/29/20 12:04 Primary Care Provider: REAGAN MCQUEEN MD [Primary Care Provider] - Follow up as needed Notes: HPI: 64-year-old male presenting for numbness in both hands over the last 3 to 4 days. Patient is a dialysis patient. Patient had a new CVC catheter placed in the right chest wall and neck by Dr. Pierce on Sunday. Had dialysis Sunday and Sunday. Noticed some numbness in both hands on Sunday which has continued and is fairly constant. No headache no chest pain no shortness of breath no abdominal pain no vision change no slurred speech PHYSICAL EXAMINATION: Patient moves all extremities well. There is a catheter in the right chest wall extending up into the right lateral neck I have greeted and performed a rapid initial assessment of this patient. A comprehensive ED assessment and evaluation of the patient, analysis of test results and completion of medical decision making process will be conducted by an additional ED providers. Please note that clinical decision making for this patient was made during the 2019 pandemic of novel coronavirus which caused a significant strain on the healthcare system including at this particular facility. Criteria for admission discharge and level of care decisions as well as treatment decisions have necessarily changed TRAVEL OUTSIDE OF THE [place] IN LAST 30 DAYS: No - Related Data Allergies/Adverse Reactions: lisinopril Adverse Reaction (Verified 05/24/20 05:43) Penicillins Adverse Reaction (Verified 05/24/20 05:43) Asprin Allergy (Intermediate, Uncoded 05/24/20 05:43) rash Past Medical History - Past Medical History Cardiac Medical History: Reports: Hx Hypertension Denies: Hx Coronary Artery Disease, Hx Heart Attack Pulmonary Medical History: Denies: Hx Asthma, Hx Bronchitis, Hx COPD, Hx Pneumonia Neurological Medical History: Reports: Hx Seizures - 2018. Denies: Hx Cerebrovascular Accident Musculoskeltal Medical History: Reports Hx Arthritis - OA Past Surgical History: Denies: Hx Pacemaker - Immunizations Hx Diphtheria, Pertussis, Tetanus Vaccination: - unknown Doctor's Discharge - Discharge Referrals: REAGAN MCQUEEN MD [Primary Care Provider] - Follow up as needed
[2020-05-29 12:09] VITALS: BP 142/71
--- NOTE | 2020-05-29 12:41 | RADIOLOGY REPORT (SQ) ---
EXAM DESCRIPTION: CHEST 2 VIEWS IMAGES COMPLETED DATE/TIME: 05/29/2020 11:24 am REASON FOR STUDY: hand numbness, new right chest wall catheter COMPARISON: 05/24/2020 EXAM PARAMETERS: NUMBER OF VIEWS: two views TECHNIQUE: Digital Frontal and Lateral radiographic views of the chest acquired. RADIATION DOSE: NA LIMITATIONS: none FINDINGS: LUNGS AND PLEURA: No opacities, masses or pneumothorax. No pleural effusion. MEDIASTINUM AND HILAR STRUCTURES: No masses or contour abnormalities. HEART AND VASCULAR STRUCTURES: Heart normal size. No evidence for failure. BONES: No acute findings. HARDWARE: Right central venous catheter with tip at the cavoatrial junction unchanged from prior. OTHER: No other significant finding. IMPRESSION: NO ACUTE RADIOGRAPHIC FINDING IN THE CHEST. TECHNICAL DOCUMENTATION: JOB ID: [id number] [employer]- All Rights Reserved Reading location - IP/workstation name: [id number]
[2020-05-29 12:59] LABS: ABSOLUTE EOSINOPHILS # (AUTO) 0.2 10^3/uL (0.0-0.6); ABSOLUTE LYMPHOCYTES (AUTO) 1.1 10^3/uL (0.5-4.7); ABSOLUTE MONOCYTES (AUTO) 0.8 10^3/uL (0.1-1.4); ABSOLUTE NEUT (AUTO) 2.9 10^3/uL (1.7-8.2); BASOPHILS % (AUTO) 0.6 % (0-2); EOSINOPHILS % (AUTO) 4.5 % (0-6); HEMATOCRIT 27.6 % (37.9-51.0); HEMOGLOBIN 9.5 g/dL (13.5-17.0); LYMPHOCYTES % (AUTO) 21.4 % (13-45); MEAN CORPUSCULAR HEMOGLOBIN 32.5 pg (27.0-33.4); MEAN CORPUSCULAR HGB CONC 34.3 g/dL (32.0-36.0); MEAN CORPUSCULAR VOLUME 95 fl (80-97); MONOCYTES % (AUTO) 15.4 % (3-13); PLATELET COUNT 178 10^3/uL (150-450); RED BLOOD COUNT 2.92 10^6/uL (4.35-5.55); RED CELL DISTRIBUTION WIDTH 14.8 % (11.5-14.0); SEGMENTED NEUTROPHILS % (AUTO) 58.1 % (42-78); TOTAL CELLS COUNTED % (AUTO) 100 %
[2020-05-29 13:14] LABS: INTERNATIONAL RATION (INR) 0.94; PROTHROMBIN TIME 12.8 SEC (11.4-15.4)
[2020-05-29 13:17] LABS: ALBUMIN 4.1 g/dL (3.5-5.0); ALKALINE PHOSPHATASE 46 U/L (38-126); ANION GAP 9 (5-19); ASPARTATE AMINO TRANSFERASE 21 U/L (17-59); BILIRUBIN,DIRECT 0.3 mg/dL (0.0-0.4); BILIRUBIN,TOTAL 0.3 mg/dL (0.2-1.3); BLOOD UREA NITROGEN 26 mg/dL (7-20); CALCIUM 9.5 mg/dL (8.4-10.2); CARBON DIOXIDE 31 mmol/L (22-30); CHLORIDE 100 mmol/L (98-107); GLUCOSE 96 mg/dL (75-110); POTASSIUM 3.9 mmol/L (3.6-5.0)
--- NOTE | 2020-05-29 13:59 | ER Document Report ---
Entered by SHIVANI SEGOVIA SCRIBE 05/29/20 [id number] Acting as scribe for:ELENA SOLOMON MD ED General - General Chief Complaint: Numbness Stated Complaint: NUMBNESS IN HANDS Time Seen by Provider: 05/29/20 12:04 Primary Care Provider: REAGAN MCQUEEN MD [Primary Care Provider] - Follow up as needed Mode of Arrival: Ambulatory Information source: Patient Notes: This 64 year old male patient with a history of ESRD on HD (M-W-F, started dialy sis on 05/26) presents to the ED today for evaluation of bilateral hand numbness that started x3 days ago. Patient states that he had a permacath placed in his right upper chest on 05/[address] Pierce and and was advised to come to the ED "if anything out of the ordinary happens," so the patient decided to come today due to the numbness. Denies any motor weakness. He does admit to some anxiety a nd has a history of PTSD. TRAVEL OUTSIDE OF THE [place] IN LAST 30 DAYS: No - Related Data Allergies/Adverse Reactions: lisinopril Adverse Reaction (Verified 05/24/20 05:43) Penicillins Adverse Reaction (Verified 05/24/20 05:43) Asprin Allergy (Intermediate, Uncoded 05/24/20 05:43) rash Past Medical History - General Information source: Patient - Social History Smoking Status: Never Smoker Cigarette use (# per day): No Chew tobacco use (# tins/day): No Smoking Education Provided: No Frequency of alcohol use: None Drug Abuse: None Lives with: Spouse/Significant other Family History: Reviewed & Not Pertinent - Past Medical History Cardiac Medical History: Reports: Hx Hypertension Neurological Medical History: Reports: Hx Seizures - 2018 Renal/ Medical History: Reports: Hx End Stage Renal Disease, Hx Hemodialysis - M-W-F Musculoskeletal Medical History: Reports Hx Arthritis - OA Psychiatric Medical History: Reports: Hx Post Traumatic Stress Disorder Past Surgical History: Reports: Hx Vascular Surgery - Permacath placement in right upper chest and left AV fistula on 05/24/20 - Immunizations Hx Diphtheria, Pertussis, Tetanus Vaccination: - unknown Hx Pneumococcal Vaccination: 02/04/11 Review of Systems - Review of Systems Constitutional: See HPI. denies: Weakness EENT: No symptoms reported Cardiovascular: No symptoms reported Respiratory: No symptoms reported Gastrointestinal: No symptoms reported Genitourinary: No symptoms reported Male Genitourinary: No symptoms reported Musculoskeletal: No symptoms reported Skin: No symptoms reported Hematologic/Lymphatic: No symptoms reported Neurological/Psychological: See HPI, Anxiety, Numbness -: Yes All other systems reviewed and negative Physical Exam - Vital signs Vitals: Temp Pulse Resp BP 98.2 F 82 16 142/71 H 05/29/20 12:08 05/29/20 12:08 05/29/20 12:08 05/29/20 12:08 - HEENT Head: Normocephalic, Atraumatic Eyes: Normal Extraocular movements intact: Yes Pupils: PERRL Neck: Supple, Other - Tension present over posterior cervical muscles bilaterally. Midline is nontender to palpation. Permacath site in the right anterior neck is clean and dry. No drainage, warmth, or tenderness. - Respiratory Respiratory status: No respiratory distress Chest status: Other - Permacath site in the right anterior chest wall is clean and dry. No drainage, warmth, or tenderness. Breath sounds: Normal Chest palpation: Normal - Cardiovascular Rhythm: Regular Heart sounds: Normal auscultation Murmur: No - Abdominal Inspection: Normal Distension: No distension Bowel sounds: Normal Tenderness: Nontender - Abdomen soft Organomegaly: No organomegaly - Back Back: Normal, Nontender - Extremities General lower extremity: Normal inspection. No: Edema Forearm: Other - Bandage over left forearm - Neurological Neuro grossly intact: Yes Orientation: AAOx4 [place] Coma Scale Eye Opening: Spontaneous [place] Coma Scale Verbal: Oriented [place] Coma Scale Motor: Obeys Commands Christianne Coma Scale Total: 15 - Psychological Associated symptoms: Anxious - Skin Skin Temperature: Warm Skin Moisture: Dry Skin Color: Normal Course - Re-evaluation Re-evalutation: 05/29/20 13:57 Patient resting comfortably not showing any signs of discharge patient admits to being nervous - Vital Signs Vital signs: Temp Pulse Resp BP Pulse Ox 98.2 F 82 16 142/71 H 05/29/20 12:08 05/29/20 12:08 05/29/20 12:08 05/29/20 12:08 - Laboratory Results Result Diagrams: 05/29/20 12:45 05/29/20 12:45 Laboratory Results Interpreted: 05/29/20 05/29/20 12:45 12:45 RBC 2.92 L Hgb 9.5 L Hct 27.6 L RDW 14.8 H Whitman % (Auto) 15.4 H Carbon Dioxide 31 H BUN 26 H Creatinine 4.89 H Est GFR ( Amer) 15 L Est GFR (MDRD) Non-Af 12 L 05/29/20 13:57 Laboratories baseline stable for patient with acute renal failure BUN 26 creatin ine 4.89. Critical Laboratory Results Reviewed: No Critical Results - Radiology Results Radiology Results Interpreted: 05/29/20 13:58 Chest X-Ray 05/29/20 12:06 IMPRESSION: NO ACUTE RADIOGRAPHIC FINDING IN THE CHEST. Chest x-ray shows no acute process Critical Radiology Results Reviewed: No Critical Results Discharge - Discharge Clinical Impression: Anxiety, Chronic renal failure Condition: Stable Disposition: HOME, SELF-CARE Additional Instructions: Anxiety The physician feels that some of your health problems are being caused by anxiety. Anxiety affects your health in many ways. Anxiety alone can cause palpitations, sweats, chest pains, abdominal pains, shortness of breath, and headaches. It contributes to ulcer disease, high blood pressure, irritable bowel syndrome, and has been shown to cause flare-ups of many other diseases. Anxiety is not a simple disorder to treat. If the anxiety is due to recent life stresses, you may simply need time to "work through" the changes. If the anxiety is due to an underlying unhappiness with yourself or due to psychiatric disturbance, professional help will be needed. Your physician can refer you for further help if needed. Anti-anxiety medication is occasionally given if the stress is acute or if you are having trouble sleeping. Chronic or frequent use of these medications is not a good idea because the body becomes reliant on it, preventing you from dealing with life's normal stresses. Referrals: REAGAN MCQUEEN MD [Primary Care Provider] - Follow up as needed I personally performed the services described in the documentation, reviewed and edited the documentation which was dictated to the scribe in my presence, and it accurately records my words and actions.
--- NOTE | 2020-05-29 22:43 | EKG REPORT ---
SEVERITY:- ABNORMAL ECG - SINUS RHYTHM LEFT VENTRICULAR HYPERTROPHY : Confirmed by: Lai Cohen MD 29-May-2020 22:42:42
--- OUTSIDE RECORDS SUMMARY | 2020-06-01 10:24 | XMS REPORT ---
:1955 Author Organization [facility] Address [facility] [address] [place] [address] Care Team Providers Name Role Phone ANUM Primary Care Physician Unavailable Philip Severino Attending Clinician Unavailable Leobardo Attending Clinician Unavailable ELAINE AMAYA Attending Clinician Unavailable Bird Attending Clinician Unavailable Emelyn QUESADA Attending Clinician Unavailable CECELIA HOLM Attending Clinician Unavailable Leobardo Attending Clinician Unavailable Allergies, Adverse Reactions, Alerts Allergy Name Allergy Status Severity Reaction(s) Onset Inactive Treat ing Comments Type Date Date Clinician PENICILLINS Miscellaneo Active Unknown 0 us allergy 10-29 00:00: 00 Aspirin Propensity Active Moderate Nausea 2020-0 to adverse 2-27 reactions 00:00: to drug 00 Lisinopril Propensity Active Moderate Cough 2020-0 to adverse 2-27 reactions 00:00: to drug 00 Penicillin Propensity Active Severe Rash 2020-0 to adverse 2-27 reactions 00:00: to drug 00 Aspirin Allergy to Active (Ingredient( Drug s): aluminum (Finding) aspirin) Lisinopril Allergy to Active (Ingredient( Drug s): (Finding) lisinopril) Penicillins Allergy to Active Drug (Finding) Medications Ordered Filled Start Stop Current Ordering Indication Dosage Frequency Signature Comments Components Medication Medication Date Date Medication? Clinician (SIG) Name Name Epoetin 2020-1 No [id number] Epoetin Chris-epbx 2-04 Chris-epbx 00:00: 00 Epoetin 2020-1 No [id number] Epoetin Chris-epbx 2-04 Chris-epbx 00:00: 00 Epoetin 2020-0 No [id number] Epoetin Chris-epbx 7-17 Chris-epbx 00:00: 00 Epoetin 2020-0 No [id number] Epoetin Chris-epbx 7-17 Chris-epbx 00:00: 00 Epoetin 2020-0 No [id number] Epoetin Chris-epbx 3-24 Chris-epbx 00:00: 00 Epoetin 2020-0 No [id number] Epoetin Chris-epbx 3-24 Chris-epbx 00:00: 00 Epoetin 2020-0 No [id number] Epoetin Chris-epbx 2-25 Chris-epbx 00:00: 00 Epoetin 2020-0 No [id number] Epoetin Chris-epbx 2-25 Chris-epbx 00:00: 00 Velcade 2020-0 No 2.3mg Velcade 2-04 00:00: 00 Epoetin 2020-0 No [id number] Epoetin Chris-epbx 1-28 Chris-epbx 00:00: 00 Epoetin 2020-0 No [id number] Epoetin Chris-epbx 1-28 Chris-epbx 00:00: 00 Velcade 2020-0 No 2.3mg Velcade 1-21 00:00: 00 Velcade 2020-0 No 2.3mg Velcade 1-14 00:00: 00 Velcade 2019-1 No 2.4mg Velcade 2-31 00:00: 00 Epoetin 2019-1 No [id number] Epoetin Chris-epbx 2-31 Chris-epbx 00:00: 00 Epoetin 2019-1 No [id number] Epoetin Chris-epbx 2-31 Chris-epbx 00:00: 00 Velcade 2019-1 No 2.3mg Velcade 2-17 00:00: 00 Velcade 2019-1 No 2.4mg Velcade 2-10 00:00: 00 Epoetin 2019-1 No [id number] Epoetin Chris-epbx 2-10 Chris-epbx 00:00: 00 Epoetin 2019-1 No [id number] Epoetin Chris-epbx 2-10 Chris-epbx 00:00: 00 Velcade 2019-1 No 2.3mg Velcade 2-03 00:00: 00 Velcade 2019-1 No 2.4mg Velcade 1-26 00:00: 00 Epoetin 2019-1 No [id number] Epoetin Chris-epbx 1-19 Chris-epbx 00:00: 00 Velcade 2019-1 No 2.4mg Velcade 1-19 00:00: 00 Epoetin 2019-1 No [id number] Epoetin Chris-epbx 1-19 Chris-epbx 00:00: 00 Velcade 2019- No 2.4mg Velcade 1-12 00:00: 00 Velcade 2019- No 2.4mg Velcade 1-05 00:00: 00 Velcade 2019- No 2.4mg Velcade 0-29 00:00: 00 Epoetin 2019-1 No [id number] Epoetin Chris-epbx 0-29 Chris-epbx 00:00: 00 Epoetin 2018- No [id number] Epoetin Chris-epbx 0-29 Chris-epbx 00:00: 00 Velcade 2018- No 2.4mg Velcade 0-22 00:00: 00 Velcade 2018-05 No 2.4mg Velcade 0-15 00:00: 00 Velcade 2018- No 2.4mg Velcade 0-08 00:00: 00 PROVIDED 2018-2020- No 100mg Testosteron 0-08 -22 e Cypionate 00:00: 00:00 00 :00 Velcade 2018-1 No 2.4mg Velcade 0-01 00:00: 00 Testosteron 2019-1 Yes 100mg e Cypionate 0-01 00:00: 00 Velcade 2019-0 No 2.4mg Velcade 9-24 00:00: 00 Epoetin 2019-0 No [id number] Epoetin Chris-epbx 9-24 Chris-epbx 00:00: 00 Epoetin 2019-0 No [id number] Epoetin Chris-epbx 9-24 Chris-epbx 00:00: 00 Velcade 2019-0 No 2.4mg Velcade 9-17 00:00: 00 Velcade 2019-0 No 2.4mg Velcade 9-10 00:00: 00 traZODone 2019-0 Yes .5 HCl 9- 00:00: 00 Epoetin 2019-0 2020- No [id number] Epoetin Chris-epbx 01-14 Chris-epbx 00:00: 00:00 00 :00 Epoetin 2019-0 2020- No [id number] Epoetin Chris-epbx 01-14 Chris-epbx 00:00: 00:00 00 :00 Velcade 2019-0 No 2.4mg Velcade 01-07 00:00: 00 Velcade 2019-0 No 2.4mg Velcade 12-31 00:00: 00 Hydration 2019-0 2019- No 1000mL 1000mL NS 12-25 00:00: 00:00 00 :00 Velcade 2018-0 No 2.4mg Velcade 12-24 00:00: 00 Velcade 2018-0 No 2.4mg Velcade 12-17 00:00: 00 Azithromyci 2018-0 2020- No n 12-17 00:00: 12:24 00 :17 Omeprazole 2018-0 2019- No 20mg 12-17 00:00: 00:00 00 :00 Valtrex 2018-0 Yes 1 12-10 00:00: 00 Zofran ODT 2018-0 Yes 1 12-10 00:00: 00 Promethazin 2018-0 2020- No 1 e HCl 12-10 00:00: 11:40 00 :48 Velcade 2018-0 2020- No 2.4mg Velcade 12-10 00:00: 00:00 00 :00 Cyclophosph 2018-0 2020- No 1 amide 11-25 00:00: 12:23 00 :49 Dexamethaso 2018-0 2020- No 10 ne 11-25 00:00: 12:23 00 :49 multivit-mi Yes Take by n/FA/lycope mouth n/lutein (CENTRUM SILVER MEN ORAL) atorvastati Yes 10mg QD Take 10 mg n (LIPITOR) by mouth 10 MG once daily tablet telmisartan Yes 40mg QD Take 40 mg (MICARDIS) by mouth 80 MG once daily tablet escitalopra Yes 10mg QD Take 10 mg m oxalate by mouth (LEXAPRO) once daily 10 MG tablet buprenorphi Yes 15{each Q1W Place 15 ne } each onto (BUTRANS) the skin 15 mcg/hour every 7 PTWK (seven) days pantoprazol Yes 40mg QD Take 40 mg e by mouth (PROTONIX) once daily [address] tablet calcitRIOL Yes .25ug QD Take 0.25 (ROCALTROL) mcg by 0.25 MCG mouth once capsule daily ferrous Yes 325mg QD Take 325 sulfate 325 mg by (65 FE) MG mouth tablet daily with breakfast sodium Yes 300mg Inject 300 chloride mg into 0.9% SolP the vein 100 mL with clindamycin 150 mg/mL Soln 300 mg IVPB dronabinoL Yes 5mg Q.5D Take 5 mg (MARINOL) 5 by mouth 2 MG capsule (two) times daily before meals donepeziL Yes 10mg QD Take 10 mg (ARICEPT) by mouth 10 MG nightly tablet divalproex Yes 750mg Q.[id number] Take 750 (DEPAKOTE) [id number] mg by [address] 3D mouth 3 tablet (three) times daily divalproex Yes 750mg Q.[id number] Take 750 (DEPAKOTE) [id number] mg by [address] 3D mouth 3 tablet (three) times daily lamoTRIgine Yes 300mg Q.5D Take 300 (LAMICTAL) mg by 100 MG mouth 2 tablet (two) times daily valACYclovi Yes 500mg QD Take 500 r (VALTREX) mg by 500 MG mouth once tablet daily fluticasone Yes 2{spray QD Place 2 propionate } sprays (FLONASE) into both 50 nostrils mcg/actuati once daily on nasal spray cetirizine Yes 10mg QD Take 10 mg (ZYRTEC) 10 by mouth MG tablet once daily testosteron Yes Q14D Inject e cypionate into the (DEPO-TESTO muscle STERONE) every 14 100 mg/mL (fourteen) injection days AmLODIPine Yes 1 Besylate Aricept Yes 1 Butrans Yes 1 Calcitriol Yes 1 Centrum Yes 1 Depo-Testos Yes 200mg terone Divalproex Yes 1 Sodium Esomeprazol Yes 1 e Magnesium Ferrous Yes 1 Sulfate Flonase Yes 1 LamoTRIgine Yes 1 Lasix Yes 1 Lexapro Yes 1 Lincomycin Yes 1 HCl Lipitor Yes 1 Marinol Yes 1 medroxyPROG Yes 1 ESTERone Acetate Megestrol Yes 625mg Acetate Micardis Yes 1 Protonix Yes 1 Viibryd Yes 2 Megestrol No 625mg Acetate Clindamycin 2019- No HCl 09-22 14:49 :42 Horizant 2020- No 1 07-01 11:41 :00 Vitamin B1 2019- No 1 12-10 13:29 :17 Cialis 2019- No 1 12-10 13:05 :52 Claritin 2019- No 1 12-10 13:06 :05 Januvia 2019- No 1 12-10 13:27 :59 OxyCODONE 2019- No 1 HCl 12-10 13:29 :21 Uloric 2019- No 1 12-10 13:28 :59 Vitamin B1 2019- No 1 12-10 13:29 :17 BusPIRone 2018- No 1 HCl 02-12 10:31 :05 Lunesta 2018- No 1 02-12 10:33 :53 BuPROPion 2018- No 1 HCl ER (XL) 08-21 09:43 :14 ClonazePAM 2018- No 1 08-21 09:45 :24 Levaquin 2018- No 1 08-21 09:45 :57 Lidoderm 2018- No 1 08-21 09:47 :00 Micardis 2018- No 1 08-21 09:45 :43 Lowland 2018- No 1 08-21 09:47 :51 TraMADol 2018- No 1 HCl 08-21 09:47 :23 Prazosin 2017- No 1 HCl 05-22 09:06 :55 Problems Condition Condition Condition Status Onset Resolution Last Treatin g Comments Name Details Category Date Date Treatment Clinician Date Decreased Decreased Diagnosis active 2018-05 testosteron testosteron 0-01 e level e level 00:00: 00 Male Male Diagnosis active 2018-05 hypogonadis hypogonadis 0-01 m m 00:00: 00 Iron Iron Diagnosis active deficiency deficiency 9-19 anemia anemia 00:00: 00 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 00 Dehydration Dehydration Diagnosis active 12-25 00:00: 00 Patient Patient Diagnosis active encounter encounter 806 status status 00:00: 00 Anemia of Anemia of Diagnosis active chronic chronic 4-17 disease disease 00:00: 00 Malignant Malignant Diagnosis active 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 (clinical) (clinical) 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 systemic amyloidosis amyloidosis Procedures Procedure Date / Time Performed Performing Clinician Tona arias OFFICE/OUTPATIENT VISIT EST 2020-04-05 10:00:00 OFFICE/OUTPATIENT VISIT EST 2020-02-02 10:00:00 OFFICE/OUTPATIENT VISIT EST 2019-12-31 11:40:00 OFFICE/OUTPATIENT VISIT EST 2019-12-03 12:00:00 Annual Wellness Visit, Initial 2019-10-31 15:30:00 PATHOLOGY - SKIN 2019-10-27 14:55:00 MinPratibha valdez COMPREHENSIVE METABOLIC PANEL 2019-10-27 13:18:00 Pratibha Holm (CMP) PROTEIN ELECTROPHORESIS, SERUM 2019-10-27 13:18:00 Fracisco Holm IMMUNOGLOBULINS (IGG,IGM,IGA) 2019-10-27 13:18:00 Pratibha Holm IMMUNOGLOBULIN FREE LT CHAINS 2019-10-27 13:18:00 Pratibha Holm BLOOD COMPLETE BLOOD COUNT (CBC) WITH 2019-10-27 13:18:00 Chacha Holm DIFFERENTIAL IMMUNOFIXATION ELECTROPHORESIS 2019-10-27 13:18:00 Fracisco Holm (JESSICA), SERUM OFFICE/OUTPATIENT VISIT EST 2019-08-20 09:50:00 OFFICE/OUTPATIENT VISIT EST 2019-06-30 12:50:00 OFFICE/OUTPATIENT VISIT EST 2019-05-15 12:40:00 OFFICE/OUTPATIENT VISIT EST 2019-03-13 11:40:00 OFFICE/OUTPATIENT VISIT EST 2019-02-05 11:20:00 OFFICE/OUTPATIENT VISIT EST 2019-01-01 09:20:00 OFFICE/OUTPATIENT VISIT EST 2018-11-04 16:20:00 [facility] MGMT SERVICES 20MIN AND 2018-10-04 00:00:00 GREATER [facility] C[facility] MGMT SERVICES 20MIN AND 2018-09-03 00:00:00 GREATER OFFICE/OUTPATIENT VISIT EST 2018-09-02 10:40:00 [facility] MGMT SERVICES 20MIN AND 2018-08-04 00:00:00 GREATER OFFICE/OUTPATIENT VISIT EST 2018-07-01 10:00:00 OFFICE/OUTPATIENT VISIT EST 2018-05-01 08:50:00 OFFICE/OUTPATIENT VISIT EST 2018-03-26 14:40:00 OFFICE/OUTPATIENT VISIT EST 2018-02-21 13:30:00 OFFICE/OUTPATIENT VISIT EST 2017-12-25 14:30:00 OFFICE/OUTPATIENT VISIT EST 2017-10-08 08:40:00 [id number] OFFICE/OUTPATIENT VISIT EST 2017-09-24 09:00:00 OFFICE/OUTPATIENT VISIT EST 2017-08-27 10:30:00 OFFICE/OUTPATIENT VISIT EST 2017-07-30 10:30:00 OFFICE/OUTPATIENT VISIT EST 2017-07-02 10:30:00 OFFICE/OUTPATIENT VISIT EST 2017-06-09 14:00:00 OFFICE/OUTPATIENT VISIT EST 2017-05-14 13:40:00 OFFICE/OUTPATIENT VISIT EST 2017-04-09 13:00:00 OFFICE/OUTPATIENT VISIT EST 2017-03-08 08:00:00 OFFICE/OUTPATIENT VISIT EST 2017-02-06 07:50:00 OFFICE/OUTPATIENT VISIT EST 2017-01-09 13:30:00 OFFICE/OUTPATIENT VISIT EST 2016-12-07 09:20:00 OFFICE/OUTPATIENT VISIT EST 2016-11-09 08:40:00 OFFICE/OUTPATIENT VISIT EST 2016-10-11 13:40:00 OFFICE/OUTPATIENT VISIT EST 2016-09-11 11:00:00 OFFICE/OUTPATIENT VISIT EST 2016-08-14 11:10:00 OFFICE/OUTPATIENT VISIT EST 2016-07-17 10:30:00 PSA 2015-05-07 00:00:00 Chest X-Ray 2015-05-07 00:00:00 Prostatectomy 2015-05-07 00:00:00 colonoscopy 2015-05-07 00:00:00 Bone Density 2013-05-07 00:00:00 Left Knee Surgery Right knee surgery Results Test Description Test Time Test Comments Text Results Atomic Results Result Comments WBC 2020-05-28 10:06:00 Test Item Value Reference Range Comments WBC (test code = WBC) 4.8000 4.0000-10.0000 Lymphocytes % (test code = Lymphocytes %) 21.7000 % 22.400 0-43.6000 MID% (test code = MID%) 6.5000 % 1.2000-11.2000 Neutrophils % (test code = Neutrophils %) 71.8000 % 48.900 0-69.9000 Lymphocytes (test code = Lymphocytes) 1.0000 1.2000-3.2 000 MID (test code = MID) 0.4000 0.1000-1.1000 Neutrophils (test code = Neutrophils) 3.4000 1.5000-6.7 000 RBC (test code = RBC) 3.1700 3.7000-4.9000 HGB (test code = HGB) 9.8000 g/dL 11.2000-18.0000 HCT (test code = HCT) 30.6000 % 34.0000-44.0000 MCV (test code = MCV) 96.4000 fL 80.0000-94.0000 MCH (test code = MCH) 31.1000 pg 27.0000-34.0000 MCHC (test code = MCHC) 32.2000 g/dL 31.5000-36.0000 RDW (test code = RDW) 16.2000 11.0000-18.0000 PLT (test code = PLT) 221.0000 140.0000-440.0000 MPV (test code = MPV) 8.1000 fL 6.8000-10.6000 SARS-CoV-2 RNA Resp Ql [id number] 00:00:00 Test Item Value Reference Range Comments SARS-CoV-2 RNA Resp Ql Not detected [facility] Case KANDACE+probe (test code = ID: COVID [id number]) [id number] 10:08:00 Test Item Value Reference Range Comments WBC (test code = WBC) 4.4000 4.0000-10.0000 Lymphocytes % (test code = Lymphocytes %) 37.9000 % 22.400 0-43.6000 MID% (test code = MID%) 8.0000 % 1.2000-11.2000 Neutrophils % (test code = Neutrophils %) 54.1000 % 48.900 0-69.9000 Lymphocytes (test code = Lymphocytes) 1.6000 1.2000-3.2 000 MID (test code = MID) 0.5000 0.1000-1.1000 Neutrophils (test code = Neutrophils) 2.3000 1.5000-6.7 000 RBC (test code = RBC) 3.4300 3.7000-4.9000 HGB (test code = HGB) 10.8000 g/dL 11.2000-18.0000 HCT (test code = HCT) 31.9000 % 34.0000-44.0000 MCV (test code = MCV) 92.9000 fL 80.0000-94.0000 MCH (test code = MCH) 31.5000 pg 27.0000-34.0000 MCHC (test code = MCHC) 33.9000 g/dL 31.5000-36.0000 RDW (test code = RDW) 15.6000 11.0000-18.0000 PLT (test code = PLT) 238.0000 140.0000-440.0000 MPV (test code = MPV) 8.7000 fL 6.8000-10.6000 [id number] 12:14:00 Test Item Value Reference Range Comments Creatinine (test code = Creatinine) 5.7400 mg/dL 0.7600-1.270 0 Cr Clearance (Est) (test code = Cr 14.9800 85.0000-125.0 000 Clearance (Est)) Glucose (test code = Glucose) 85.0000 mg/dL 65.0000-99.0000 BUN (test code = BUN) 42.0000 mg/dL 8.0000-27.0000 eGFR Cmr-Nbnudev-Ckalalzu (test code = 10.0000 eGFR Yst-Gyjrizk-Nzdmbdst) eGFR -Ukrainian (test code = eGFR 11.0000 -Ukrainian) BUN/Creat Ratio (test code = BUN/Creat 7.0000 10.0000-2 4.0000 Ratio) Sodium (test code = Sodium) 137.0000 mmol/L 134.0000-144.0000 Potassium (test code = Potassium) 3.9000 mmol/L 3.5000-5.2000 Chloride (test code = Chloride) 99.0000 mmol/L 96.0000-106.0000 CO2 (test code = CO2) 20.0000 mmol/L 20.0000-29.0000 Calcium (test code = Calcium) 10.0000 mg/dL 8.6000-10.2000 Protein, Total (test code = Protein, 7.9000 g/dL 6.0000-8.50 00 Total) Albumin (test code = Albumin) 5.0000 g/dL 3.8000-4.8000 Globulin (test code = Globulin) 2.9000 g/dL 1.5000-4.5000 A/G Ratio (test code = A/G Ratio) 1.7000 1.2000-2.2000 Bilirubin, Total (test code = Bilirubin, 0.2000 mg/dL 0.0000- 1.2000 Total) Alkaline Phosphatase (test code = Alkaline 51.0000 39.00 00-117.0000 Phosphatase) AST (SGOT) (test code = AST (SGOT)) 15.0000 0.0000-40.00 00 ALT (SGPT) (test code = ALT (SGPT)) 6.0000 0.0000-44.00 00 Iron, Total (test code = Iron, Total) 63.0000 38.0000-16 9.0000 TIBC (test code = TIBC) 322.0000 250.0000-450.0000 UIBC (test code = UIBC) 259.0000 111.0000-343.0000 % Iron Saturation (test code = % Iron 20.0000 % 15.0000-55 .0000 Saturation) Ferritin (test code = Ferritin) 494.0000 ng/mL 30.0000-400.0000 [id number] 10:17:00 Test Item Value Reference Range Comments WBC (test code = WBC) 3.8000 4.0000-10.0000 Lymphocytes % (test code = Lymphocytes %) 34.9000 % 22.400 0-43.6000 MID% (test code = MID%) 8.0000 % 1.2000-11.2000 Neutrophils % (test code = Neutrophils %) 57.1000 % 48.900 0-69.9000 Lymphocytes (test code = Lymphocytes) 1.3000 1.2000-3.2 000 MID (test code = MID) 0.3000 0.1000-1.1000 Neutrophils (test code = Neutrophils) 2.2000 1.5000-6.7 000 RBC (test code = RBC) 3.8900 3.7000-4.9000 HGB (test code = HGB) 12.0000 g/dL 11.2000-18.0000 HCT (test code = HCT) 35.8000 % 34.0000-44.0000 MCV (test code = MCV) 92.2000 fL 80.0000-94.0000 MCH (test code = MCH) 30.9000 pg 27.0000-34.0000 MCHC (test code = MCHC) 33.5000 g/dL 31.5000-36.0000 RDW (test code = RDW) 17.5000 11.0000-18.0000 PLT (test code = PLT) 233.0000 140.0000-440.0000 MPV (test code = MPV) 7.2000 fL 6.8000-10.6000 [id number] 09:43:00 Test Item Value Reference Range Comments WBC (test code = WBC) 5.0000 4.0000-10.0000 Lymphocytes % (test code = Lymphocytes %) 39.8000 % 22.400 0-43.6000 MID% (test code = MID%) 8.7000 % 1.1999-11.1999 Neutrophils % (test code = Neutrophils %) 51.5000 % 48.900 0-69.9000 Lymphocytes (test code = Lymphocytes) 2.0000 1.2000-3.2 000 MID (test code = MID) 0.4000 0.1000-1.1000 Neutrophils (test code = Neutrophils) 2.6000 1.5000-6.7 000 RBC (test code = RBC) 3.2400 3.7000-4.9000 HGB (test code = HGB) 9.6000 g/dL 11.1999-18.0000 HCT (test code = HCT) 29.2000 % 34.0000-44.0000 MCV (test code = MCV) 90.2000 fL 80.0000-94.0000 MCH (test code = MCH) 29.7000 pg 27.0000-34.0000 MCHC (test code = MCHC) 33.0000 g/dL 31.5000-36.0000 RDW (test code = RDW) 15.8000 11.0000-18.0000 PLT (test code = PLT) 171.0000 140.0000-440.0000 MPV (test code = MPV) 9.6000 fL 6.8000-10.6000 [id number] 10:01:00 Test Item Value Reference Range Comments WBC (test code = WBC) 5.4000 4.0000-10.0000 Lymphocytes % (test code = Lymphocytes %) 28.2000 % 22.400 0-43.6000 MID% (test code = MID%) 7.0000 % 1.1999-11.1999 Neutrophils % (test code = Neutrophils %) 64.8000 % 48.900 0-69.9000 Lymphocytes (test code = Lymphocytes) 1.5000 1.2000-3.2 000 MID (test code = MID) 0.4000 0.1000-1.1000 Neutrophils (test code = Neutrophils) 3.5000 1.5000-6.7 000 RBC (test code = RBC) 3.4800 3.7000-4.9000 HGB (test code = HGB) 10.5000 g/dL 11.2000-18.0000 HCT (test code = HCT) 31.1000 % 34.0000-44.0000 MCV (test code = MCV) 89.3000 fL 80.0000-94.0000 MCH (test code = MCH) 30.3000 pg 27.0000-34.0000 MCHC (test code = MCHC) 33.9000 g/dL 31.5000-36.0000 RDW (test code = RDW) 15.6000 11.0000-18.0000 PLT (test code = PLT) 231.0000 140.0000-440.0000 MPV (test code = MPV) 8.1000 fL 6.8000-10.6000 [id number] 11:42:00 Test Item Value Reference Range Comments Creatinine (test code = Creatinine) 5.3800 mg/dL 0.7600-1.270 0 Cr Clearance (Est) (test code = Cr 15.7900 85.0000-125.0 000 Clearance (Est)) Glucose (test code = Glucose) 112.0000 mg/dL 65.0000-99.0000 BUN (test code = BUN) 44.0000 mg/dL 8.0000-27.0000 eGFR Kql-Vuuwuqz-Axosxork (test code = 10.0000 eGFR Ouc-Nejrkwh-Pycafeog) eGFR -Ukrainian (test code = eGFR 12.0000 -Ukrainian) BUN/Creat Ratio (test code = BUN/Creat 8.0000 10.0000-2 4.0000 Ratio) Sodium (test code = Sodium) 141.0000 mmol/L 134.0000-144.0000 Potassium (test code = Potassium) 4.9000 mmol/L 3.5000-5.2000 Chloride (test code = Chloride) 102.0000 mmol/L 96.0000-106.0000 CO2 (test code = CO2) 22.0000 mmol/L 20.0000-29.0000 Calcium (test code = Calcium) 10.1000 mg/dL 8.6000-10.2000 Protein, Total (test code = Protein, 7.2000 g/dL 6.0000-8.50 00 Total) Albumin (test code = Albumin) 4.5000 g/dL 3.8000-4.8000 Globulin (test code = Globulin) 2.7000 g/dL 1.5000-4.5000 A/G Ratio (test code = A/G Ratio) 1.7000 1.2000-2.2000 Bilirubin, Total (test code = Bilirubin, 0.2000 mg/dL 0.0000- 1.2000 Total) Alkaline Phosphatase (test code = Alkaline 52.0000 39.00 00-117.0000 Phosphatase) AST (SGOT) (test code = AST (SGOT)) 11.0000 0.0000-40.00 00 ALT (SGPT) (test code = ALT (SGPT)) 9.0000 0.0000-44.00 00 Iron, Total (test code = Iron, Total) 67.0000 38.0000-16 9.0000 TIBC (test code = TIBC) 304.0000 250.0000-450.0000 UIBC (test code = UIBC) 237.0000 111.0000-343.0000 % Iron Saturation (test code = % Iron 22.0000 % 15.0000-55 .0000 Saturation) Testosterone, Free (test code = 2.9000 pg/mL 6.6000-18.1000 Testosterone, Free) Ferritin (test code = Ferritin) 761.0000 ng/mL 30.0000-400.0000 [id number] 10:55:00 Test Item Value Reference Range Comments WBC (test code = WBC) 4.9000 4.0000-10.0000 Lymphocytes % (test code = Lymphocytes %) 26.9000 % 22.400 0-43.6000 MID% (test code = MID%) 6.9000 % 1.2000-11.2000 Neutrophils % (test code = Neutrophils %) 66.2000 % 48.900 0-69.9000 Lymphocytes (test code = Lymphocytes) 1.3000 1.2000-3.2 000 MID (test code = MID) 0.4000 0.1000-1.1000 Neutrophils (test code = Neutrophils) 3.2000 1.5000-6.7 000 RBC (test code = RBC) 3.6600 3.7000-4.9000 HGB (test code = HGB) 10.9000 g/dL 11.2000-18.0000 HCT (test code = HCT) 31.9000 % 34.0000-44.0000 MCV (test code = MCV) 87.2000 fL 80.0000-94.0000 MCH (test code = MCH) 29.8000 pg 27.0000-34.0000 MCHC (test code = MCHC) 34.2000 g/dL 31.5000-36.0000 RDW (test code = RDW) 15.4000 11.0000-18.0000 PLT (test code = PLT) 307.0000 140.0000-440.0000 MPV (test code = MPV) 7.8000 fL 6.8000-10.6000 [id number] 10:03:00 Test Item Value Reference Range Comments WBC (test code = WBC) 5.1999 4.0000-10.0000 Lymphocytes % (test code = Lymphocytes %) 32.3000 % 22.400 0-43.6000 MID% (test code = MID%) 8.3000 % .1999- Neutrophils % (test code = Neutrophils %) 59.4000 % 48.900 0-69.9000 Lymphocytes (test code = Lymphocytes) 1.7000 1.2000-3.2 000 MID (test code = MID) 0.4000 0.1000-1.1000 Neutrophils (test code = Neutrophils) 3.1000 1.5000-6.7 000 RBC (test code = RBC) 3.4400 3.7000-4.9000 HGB (test code = HGB) 10.2000 g/dL 11.2000-18.0000 HCT (test code = HCT) 30.9000 % 34.0000-44.0000 MCV (test code = MCV) 89.9000 fL 80.0000-94.0000 MCH (test code = MCH) 29.7000 pg 27.0000-34.0000 MCHC (test code = MCHC) 33.0000 g/dL 31.5000-36.0000 RDW (test code = RDW) 15.7000 11.0000-18.0000 PLT (test code = PLT) 208.0000 140.0000-440.0000 MPV (test code = MPV) 8.8000 fL 6.8000-10.6000 [id number] 10:12:00 Test Item Value Reference Range Comments WBC (test code = WBC) 4.1999 4.0000-10.0000 Lymphocytes % (test code = Lymphocytes %) 39.9000 % 22.400 0-43.6000 MID% (test code = MID%) 7.7000 % .1999- Neutrophils % (test code = Neutrophils %) 52.4000 % 48.900 0-69.9000 Lymphocytes (test code = Lymphocytes) 1.7000 1.2000-3.2 000 MID (test code = MID) 0.3000 0.1000-1.1000 Neutrophils (test code = Neutrophils) 2.2000 1.5000-6.7 000 RBC (test code = RBC) 3.5700 3.7000-4.9000 HGB (test code = HGB) 10.5000 g/dL 11.2000-18.0000 HCT (test code = HCT) 32.1000 % 34.0000-44.0000 MCV (test code = MCV) 90.0000 fL 80.0000-94.0000 MCH (test code = MCH) 29.4000 pg 27.0000-34.0000 MCHC (test code = MCHC) 32.7000 g/dL 31.5000-36.0000 RDW (test code = RDW) 15.6000 11.0000-18.0000 PLT (test code = PLT) 234.0000 140.0000-440.0000 MPV (test code = MPV) 9.0000 fL 6.8000-10.6000 [id number] 14:23:00 Test Item Value Reference Range Comments Creatinine (test code = Creatinine) 5.2700 mg/dL 0.7600-1.270 0 Cr Clearance (Est) (test code = Cr 16.5300 85.0000-125.0 000 Clearance (Est)) Glucose (test code = Glucose) 83.0000 mg/dL 65.0000-99.0000 BUN (test code = BUN) 43.0000 mg/dL 8.0000-27.0000 eGFR Zmd-Jdgcwca-Rnatyxrj (test code = 11.0000 eGFR Pjm-Pgrxrqt-Mdqubfbn) eGFR -Ukrainian (test code = eGFR 12.0000 -Ukrainian) BUN/Creat Ratio (test code = BUN/Creat 8.0000 10.0000-2 4.0000 Ratio) Sodium (test code = Sodium) 142.0000 mmol/L 134.0000-144.0000 Potassium (test code = Potassium) 5.0000 mmol/L 3.5000-5.2000 Chloride (test code = Chloride) 107.0000 mmol/L 96.0000-106.0000 CO2 (test code = CO2) 17.0000 mmol/L 20.0000-29.0000 Calcium (test code = Calcium) 9.9000 mg/dL 8.6000-10.2000 Protein, Total (test code = Protein, 7.1000 g/dL 6.0000-8.50 00 Total) Albumin (test code = Albumin) 4.8000 g/dL 3.8000-4.8000 Globulin (test code = Globulin) 2.3000 g/dL 1.5000-4.5000 A/G Ratio (test code = A/G Ratio) 2.1000 1.2000-2.2000 Bilirubin, Total (test code = Bilirubin, 0.2000 mg/dL 0.0000- 1.2000 Total) Alkaline Phosphatase (test code = Alkaline 46.0000 39.00 00-117.0000 Phosphatase) AST (SGOT) (test code = AST (SGOT)) 10.0000 0.0000-40.00 00 ALT (SGPT) (test code = ALT (SGPT)) 8.0000 0.0000-44.00 00 Iron, Total (test code = Iron, Total) 61.0000 38.0000-16 9.0000 TIBC (test code = TIBC) 288.0000 250.0000-450.0000 UIBC (test code = UIBC) 227.0000 111.0000-343.0000 % Iron Saturation (test code = % Iron 21.0000 % 15.0000-55 .0000 Saturation) Ferritin (test code = Ferritin) 541.0000 ng/mL 30.0000-400.0000 [id number] 10:22:00 Test Item Value Reference Range Comments WBC (test code = WBC) 5.0000 4.0000-10.0000 Lymphocytes % (test code = Lymphocytes %) 29.2000 % 22.400 0-43.6000 MID% (test code = MID%) 7.0000 % 1.2000-11.2000 Neutrophils % (test code = Neutrophils %) 63.8000 % 48.900 0-69.9000 Lymphocytes (test code = Lymphocytes) 1.4000 1.2000-3.2 000 MID (test code = MID) 0.4000 0.1000-1.1000 Neutrophils (test code = Neutrophils) 3.2000 1.5000-6.7 000 RBC (test code = RBC) 3.5500 3.7000-4.9000 HGB (test code = HGB) 10.9000 g/dL 11.2000-18.0000 HCT (test code = HCT) 32.2000 % 34.0000-44.0000 MCV (test code = MCV) 90.7000 fL 80.0000-94.0000 MCH (test code = MCH) 30.8000 pg 27.0000-34.0000 MCHC (test code = MCHC) 33.9000 g/dL 31.5000-36.0000 RDW (test code = RDW) 15.8000 11.0000-18.0000 PLT (test code = PLT) 232.0000 140.0000-440.0000 MPV (test code = MPV) 8.2000 fL 6.8000-10.6000 [id number] 10:33:00 Test Item Value Reference Range Comments WBC (test code = WBC) 4.1000 4.0000-10.0000 Lymphocytes % (test code = Lymphocytes %) 40.0000 % 22.400 0-43.6000 MID% (test code = MID%) 8.9000 % 1.2000-11.2000 Neutrophils % (test code = Neutrophils %) 51.1000 % 48.900 0-69.9000 Lymphocytes (test code = Lymphocytes) 1.6000 1.2000-3.2 000 MID (test code = MID) 0.4000 0.1000-1.1000 Neutrophils (test code = Neutrophils) 2.1000 1.5000-6.7 000 RBC (test code = RBC) 3.5800 3.7000-4.9000 HGB (test code = HGB) 10.3000 g/dL 11.2000-18.0000 HCT (test code = HCT) 33.4000 % 34.0000-44.0000 MCV (test code = MCV) 93.3000 fL 80.0000-94.0000 MCH (test code = MCH) 28.9000 pg 27.0000-34.0000 MCHC (test code = MCHC) 31.0000 g/dL 31.5000-36.0000 RDW (test code = RDW) 16.5000 11.0000-18.0000 PLT (test code = PLT) 257.0000 140.0000-440.0000 MPV (test code = MPV) 8.8000 fL 6.8000-10.6000 [id number] 13:37:00 Test Item Value Reference Range Comments Testosterone (test code = Testosterone) 250.0000 ng/dL 264.0000 -916.0000 Testosterone, Free (test code = 2.9000 pg/mL 6.6000-18.1000 Testosterone, Free) [id number] 11:08:00 Test Item Value Reference Range Comments WBC (test code = WBC) 3.2000 4.0000-10.0000 Lymphocytes % (test code = Lymphocytes %) 31.8000 % 22.400 0-43.6000 MID% (test code = MID%) 9.4000 % 1.2000-11.2000 Neutrophils % (test code = Neutrophils %) 58.8000 % 48.900 0-69.9000 Lymphocytes (test code = Lymphocytes) 1.0000 1.2000-3.2 000 MID (test code = MID) 0.3000 0.1000-1.1000 Neutrophils (test code = Neutrophils) 1.9000 1.5000-6.7 000 RBC (test code = RBC) 3.3600 3.7000-4.9000 HGB (test code = HGB) 10.3000 g/dL 11.2000-18.0000 HCT (test code = HCT) 32.1000 % 34.0000-44.0000 MCV (test code = MCV) 95.5000 fL 80.0000-94.0000 MCH (test code = MCH) 30.6000 pg 27.0000-34.0000 MCHC (test code = MCHC) 32.0000 g/dL 31.5000-36.0000 RDW (test code = RDW) 18.6000 11.0000-18.0000 PLT (test code = PLT) 263.0000 140.0000-440.0000 MPV (test code = MPV) 8.2000 fL 6.8000-10.6000 [id number] 11:08:00 Test Item Value Reference Range Comments Creatinine (test code = Creatinine) 5.1000 mg/dL 0.5000-1.200 0 Cr Clearance (Est) (test code = Cr 17.1200 85.0000-125.0 000 Clearance (Est)) Glucose (test code = Glucose) 129.0000 mg/dL 70.0000-118.0000 BUN (test code = BUN) 41.0000 mg/dL 7.0000-22.0000 Sodium (test code = Sodium) 137.0000 mmol/L 128.0000-145.0000 Potassium (test code = Potassium) 4.5000 mmol/L 3.6000-5.1000 Chloride (test code = Chloride) 108.0000 mmol/L 96.0000-108.0000 CO2 (test code = CO2) 22.0000 mmol/L 18.0000-33.0000 Calcium (test code = Calcium) 9.2500 mg/dL 8.0000-10.3000 Alkaline Phosphatase (test code = Alkaline 42.0000 42.00 00-141.0000 Phosphatase) ALT (SGPT) (test code = ALT (SGPT)) 9.0000 10.0000-47.0 000 AST (SGOT) (test code = AST (SGOT)) 12.0000 11.0000-37.0 000 Bilirubin, Total (test code = Bilirubin, 0.3000 mg/dL 0.0000- 1.6000 Total) Albumin (test code = Albumin) 4.3000 g/dL 3.5000-5.5000 Protein, Total (test code = Protein, 6.4000 g/dL 6.4000-8.10 00 Total) eGFR -Ukrainian (test code = eGFR 14.0000 60.0000- 200.0000 -Ukrainian) eGFR Bgh-Mznwnjl-Eitjvysr (test code = 11.0000 60.0000-2 00.0000 eGFR Kba-Gcfofya-Ipllicsv) [id number] 12:44:00 Test Item Value Reference Range Comments Testosterone (test code = Testosterone) 195.0000 ng/dL 264.0000 -916.0000 Testosterone, Free (test code = 4.0000 pg/mL 6.6000-18.1000 Testosterone, Free) [id number] 12:39:00 Test Item Value Reference Range Comments WBC (test code = WBC) 4.2000 4.0000-10.0000 Lymphocytes % (test code = Lymphocytes %) 30.3000 % 22.400 0-43.6000 MID% (test code = MID%) 9.8000 % 1.2000-11.2000 Neutrophils % (test code = Neutrophils %) 59.9000 % 48.900 0-69.9000 Lymphocytes (test code = Lymphocytes) 1.2000 1.2000-3.2 000 MID (test code = MID) 0.5000 0.1000-1.1000 Neutrophils (test code = Neutrophils) 2.5000 1.5000-6.7 000 RBC (test code = RBC) 3.3100 3.7000-4.9000 HGB (test code = HGB) 10.1000 g/dL 11.2000-18.0000 HCT (test code = HCT) 29.9000 % 34.0000-44.0000 MCV (test code = MCV) 90.1000 fL 80.0000-94.0000 MCH (test code = MCH) 30.4000 pg 27.0000-34.0000 MCHC (test code = MCHC) 33.7000 g/dL 31.5000-36.0000 RDW (test code = RDW) 16.7000 11.0000-18.0000 PLT (test code = PLT) 198.0000 140.0000-440.0000 MPV (test code = MPV) 7.2000 fL 6.8000-10.6000 [id number] 09:05:00 Test Item Value Reference Range Comments WBC (test code = WBC) 5.4000 4.0000-10.0000 Lymphocytes % (test code = Lymphocytes %) 31.6000 % 22.400 0-43.6000 MID% (test code = MID%) 8.4000 % 1.2000-11.2000 Neutrophils % (test code = Neutrophils %) 60.0000 % 48.900 0-69.9000 Lymphocytes (test code = Lymphocytes) 1.7000 1.2000-3.2 000 MID (test code = MID) 0.5000 0.1000-1.1000 Neutrophils (test code = Neutrophils) 3.2000 1.5000-6.7 000 RBC (test code = RBC) 3.2500 3.7000-4.9000 HGB (test code = HGB) 10.1000 g/dL 11.2000-18.0000 HCT (test code = HCT) 30.3000 % 34.0000-44.0000 MCV (test code = MCV) 93.1000 fL 80.0000-94.0000 MCH (test code = MCH) 31.2000 pg 27.0000-34.0000 MCHC (test code = MCHC) 33.4000 g/dL 31.5000-36.0000 RDW (test code = RDW) 17.0000 11.0000-18.0000 PLT (test code = PLT) 239.0000 140.0000-440.0000 MPV (test code = MPV) 8.5000 fL 6.8000-10.6000 [id number] 00:00:00 Test Item Value Reference Range Comments Creatinine (test code = Creatinine) 4.6500 mg/dL 0.7600-1.270 0 Cr Clearance (Est) (test code = Cr 18.7800 85.0000-125.0 000 Clearance (Est)) Glucose (test code = Glucose) 93.0000 mg/dL 65.0000-99.0000 BUN (test code = BUN) 53.0000 mg/dL 8.0000-27.0000 eGFR Ewa-Vuompyr-Tervtghe (test code = 12.0000 eGFR Sgw-Oqoeqgn-Ytsrnxmd) eGFR -Ukrainian (test code = eGFR 14.0000 -Ukrainian) BUN/Creat Ratio (test code = BUN/Creat 11.0000 10.0000-2 4.0000 Ratio) Sodium (test code = Sodium) 144.0000 mmol/L 134.0000-144.0000 Potassium (test code = Potassium) 5.2000 mmol/L 3.5000-5.2000 Chloride (test code = Chloride) 110.0000 mmol/L 96.0000-106.0000 CO2 (test code = CO2) 18.0000 mmol/L 20.0000-29.0000 Calcium (test code = Calcium) 10.0000 mg/dL 8.6000-10.2000 Protein, Total (test code = Protein, 6.5000 g/dL 6.0000-8.50 00 Total) Albumin (test code = Albumin) 4.4000 g/dL 3.8000-4.8000 Globulin (test code = Globulin) 2.1000 g/dL 1.5000-4.5000 A/G Ratio (test code = A/G Ratio) 2.1000 1.2000-2.2000 Bilirubin, Total (test code = Bilirubin, 0.2000 mg/dL 0.0000- 1.2000 Total) Alkaline Phosphatase (test code = Alkaline 40.0000 39.00 00-117.0000 Phosphatase) AST (SGOT) (test code = AST (SGOT)) 12.0000 0.0000-40.00 00 ALT (SGPT) (test code = ALT (SGPT)) 8.0000 0.0000-44.00 00 Iron, Total (test code = Iron, Total) 63.0000 38.0000-16 9.0000 TIBC (test code = TIBC) 295.0000 250.0000-450.0000 UIBC (test code = UIBC) 232.0000 111.0000-343.0000 % Iron Saturation (test code = % Iron 21.0000 % 15.0000-55 .0000 Saturation) Ferritin (test code = Ferritin) 612.0000 ng/mL 30.0000-400.0000 [id number] 00:00:00 Test Item Value Reference Range Comments PSA (test code = PSA) 0.1000 ng/mL 0.0000-4.0000 Protein Electrophoresis, [id number] 13:19:00 Test Item Value Reference Range Comments SPE Result Narrative (test code = 85885157) SPE Total Protein (test code = 16643620) 7.5 g/dL 5.8-7.8 SPE Albumin (test code = 35902448) 4.84 g/dL 3.5-5 SPE Alpha 1 (test code = 75448249) 0.32 g/dL 0.2-0.5 SPE Alpha 2 (test code = 06231983) 0.72 g/dL 0.5-1.1 SPE Beta (test code = 84436501) 0.86 g/dL 0.5-1.2 SPE Gamma (test code = 93473475) 0.77 g/dL 0.5-1.5 SPE M-Derick 1 (test code = 86282959) SPE M-Derick 2 (test code = 51590107) Immunofixation Electrophoresis (JESSICA), [id number] 13:19:00IFE SerumNo monoclonal component identified. "I have personally performed this interpretation." Lucas Yanez MD, PhD Manager Product Supportsign shop supervisor 10/28/2019 [facility] - [id number] 12:12:00Case ReportSurgical Pathology Case: [id number] Authorizing Provider: Pratibha Holm NP Collected: 10/27/2019 1455 Ordering Location: Adult Blood and Marrow Received: 10/28/2019 09 [facility] Pathologist: Ciera Edwards MD Specimen: Skin, Other [facility] SUR[facility] PATH[facility] AND CYTOPATHOLOGYDIAGNOSISA. Skin, punch of skin: SKIN WITH SLIGHT CHRONIC INFLAMMATION, BIOPSY. SEE NOTE. NOTE: The Congo red stain is negative. No subcutaneous tissue is available for evaluation. Clinical-pathologic correlation is necessary. [facility] Clinical InformationPre-op Diagnosis/Current Diagnosis: Amyloidosis Pertinent Clinical History: Plasma cell dysplasia Procedure: Punch Margins: Not specifiedDUH SURGICAL PATHOLOGY AND CYTOPATHOLOGYGross ExaminationA. "Skin", received in formalin is a 0.4 cm punch of phillip skin with a depth of 0.3 cm, which is inked orange and submitted in total in block A1, histology to bisect. Tyrone Aguilar/Dr. Palmer [facility] PATH[facility] AND CYTOPATHOLOGYMicroscopic Examinatio nMicroscopic examination is performed.[facility] CYTOPATHOLOGYDisclaimerAll immunohistochemical and in situ hybridization tests performed at [facility] and reported herein were developed, validated and their performance characteristics determined by the, [facility]. During the performance of these tests, appropriate positive and negative control slides are also performed and reviewed. All control slides and internal controls (when applicable) demonstrate the expected immunoreactive patterns and/or nucleic acid hybridization. Some of the tests may not be cleared or approved by the U.S. Food and Drug Administration (FDA). The FDA has determined thatsuch clearance or approval is not necessary. These tests are used for clinical purposes and should not be regarded as investigational or as research. This laboratory is certified under the Clinical Laboratory Improvement Amendments of 1988 (CLIA) as qualified to perform high complexity clinical testing.[facility] PATH[facility] CYTOPATHOLOGYAttestationAll of the diagnostic evaluations on the enumerated specimens have been personally conducted by the pathologists involved in the care of this patientas indicated by the electronic signatures above.[facility] Immunoglobulin Free Lt Chains [id number] 16:28:00 Test Item Value Reference Range Comments Ig Free Light Chain Cofield (test code = 47101599) 8.15 mg/dl 0.33-1.94 Ig Free Light Chain Lambda (test code = 74893192) 2.87 mg/dl 0.57-2.63 Ig FLC Cofield/Lambda Ratio (test code = 70515518) 2.84 0.26-1.65 Lab Interpretation (test code = 56265-3) Abnormal Immunoglobulins (IgG,IgM,IgA)2019-10-28 14:31:00 Test Item Value Reference Range Comments IgG (test code = 72802682) 682 mg/dL 588-1573 IgM (test code = 36483024) 17 mg/dL 57-237 IgA (test code = 54845562) 279 mg/dL 46-287 BONIFACIO (test code = BONIFACIO) Lab Interpretation (test code = 45111-0) Abnormal Comprehensive Metabolic Panel (CMP)2019-10-27 13:48:00 Test Item Value Reference Range Comments Sodium (test code = 2951-2) 139 mmol/L 135-145 Potassium (test code = 2823-3) 4.0 mmol/L 3.5-5 Chloride (test code = 2075-0) 108 mmol/L 98-108 Carbon Dioxide (CO2) (test 21 mmol/L 21-30 code = 8-9) Urea Nitrogen (BUN) (test code 42 mg/dL 7-20 = 3094-0) Creatinine (test code = 4.5 mg/dL 0.6-1.3 2160-0) Glucose (test code = 2345-7) 91 mg/dL 70-140 Int erpretive Data: Above is the NONFASTING r eference range. Below are the FASTING reference ranges : NORMAL: 70-99 mg/dL PREDIABETES: 100 -125 mg/dL DIABETES: > 125 mg/dL Calcium (test code = 98510-9) 9.8 mg/dL 8.7-10.2 AST (Aspartate 15 U/L 15-41 Aminotransferase) (test code = 1920-8) ALT (Alanine Aminotransferase) 11 U/L 17-63 (test code = 1742-6) Bilirubin, Total (test code = 0.4 mg/dL 0.4-1.5 1974-2) Alk Phos (Alkaline 36 U/L 24-110 Phosphatase) (test code = 6768-6) Albumin (test code = 1751-7) 4.6 g/dL 3.5-4.8 Protein, Total (test code = 7.5 g/dL 6.2-8.1 2885-2) Anion Gap (test code = 10 mmol/L 3-12 42110-2) BUN/CREA Ratio (test code = 9 6-27 3097-3) Glomerular Filtration Rate 15 mL/min/1.73sq m Inter pretive Ranges eGFR (eGFR) (test code = 23246-6) (C KD-EPI): eGFR: > 60 mL/min/1.73 s q m - Normal eGFR: 30 - 59 mL/min/1.73 sq m - Moderately Decre ased eGFR: 15 - 29 mL/min/1.73 sq m - Severely Decreased eGFR: < 15 mL/min/1.73 sq m - Kidney Failure Note: Th jesus GFR calculations do not apply in acute situations when GFR is changing rapidly or in patients on dial ysis. Lab Interpretation (test code Abnormal = 70307-1) Complete Blood Count (CBC) with [id number] 13:26:00 Test Item Value Reference Range Comments WBC (White Blood Cell Count) (test code = 5.9 3.2 - 9.8 x10 9 58821-4) /L Hemoglobin (test code = 718-7) 10.1 g/dL 13.7-17.3 Hematocrit (test code = 4544-3) 31.5 % 39-49 Platelets (test code = 68265-1) 235 150 - 45 0 x10 9 /L MCV (Mean Corpuscular Volume) (test code = 93 fL 80-98 787-2) MCH (Mean Corpuscular Hemoglobin) (test code 29.7 pg 26. 5-34 = 785-6) MCHC (Mean Corpuscular Hemoglobin 32.1 % 31.5-36.3 Concentration) (test code = 786-4) RBC (Red Blood Cell Count) (test code = 3.40 4.37 - 5.74 x10 1 60852-8) 2/L RDW-CV (Red Cell Distribution Width) (test 14.6 % 11.5- 14.5 code = 73622-5) NRBC (Nucleated Red Blood Cell Count) (test 0.00 0 x10 9 code = 56330-6) /L NRBC % (Nucleated Red Blood Cell %) (test 0.0 % code = 92189-5) MPV (Mean Platelet Volume) (test code = 10.4 fL 7.2-11.7 42198019) Neutrophil Count (test code = 48260-2) 3.0 2 .0 - 8.6 x10 9 /L Neutrophil % (test code = 85555-0) 50.6 % 37-80 Lymphocyte Count (test code = 85210-3) 1.6 0 .6 - 4.2 x10 9 /L Lymphocyte % (test code = 00438-4) 27.6 % 10-50 Monocyte Count (test code = 26314-1) 1.1 0 - 0.9 x10 9 /L Monocyte % (test code = 76470-8) 18.1 % 0-12 Eosinophil Count (test code = 711-2) 0.16 0 - 0.70 x10 9 /L Eosinophil % (test code = 75751-8) 2.7 % 0-7 Basophil Count (test code = 704-7) 0.03 0 - 0 .20 x10 9 /L Basophil % (test code = 706-2) 0.5 % 0-2 Immature Granulocyte Count (test code = 0.03 <=0.06 x10 9 28002-1) /L Immature Granulocyte % (test code = 87862-7) 0.5 % <=0 .7 Lab Interpretation (test code = 88073-2) Abnormal [id number] 13:04:00 Test Item Value Reference Range Comments WBC (test code = WBC) 3.3000 4.0000-10.0000 Lymphocytes % (test code = Lymphocytes %) 31.1000 % 22.400 0-43.6000 MID% (test code = MID%) 7.5000 % 1.2000-11.2000 Neutrophils % (test code = Neutrophils %) 61.4000 % 48.900 0-69.9000 Lymphocytes (test code = Lymphocytes) 1.0000 1.2000-3.2 000 MID (test code = MID) 0.3000 0.1000-1.1000 Neutrophils (test code = Neutrophils) 2.0000 1.5000-6.7 000 RBC (test code = RBC) 3.4900 3.7000-4.9000 HGB (test code = HGB) 10.5000 g/dL 11.2000-18.0000 HCT (test code = HCT) 32.1000 % 34.0000-44.0000 MCV (test code = MCV) 92.0000 fL 80.0000-94.0000 MCH (test code = MCH) 30.2000 pg 27.0000-34.0000 MCHC (test code = MCHC) 32.8000 g/dL 31.5000-36.0000 RDW (test code = RDW) 16.0000 11.0000-18.0000 PLT (test code = PLT) 218.0000 140.0000-440.0000 MPV (test code = MPV) 7.6000 fL 6.8000-10.6000 [id number] 11:07:00 Test Item Value Reference Range Comments WBC (test code = WBC) 3.6000 4.0000-10.0000 Lymphocytes % (test code = Lymphocytes %) 33.3000 % 22.400 0-43.6000 MID% (test code = MID%) 8.0000 % 1.2000-11.2000 Neutrophils % (test code = Neutrophils %) 58.7000 % 48.900 0-69.9000 Lymphocytes (test code = Lymphocytes) 1.2000 1.2000-3.2 000 MID (test code = MID) 0.3000 0.1000-1.1000 Neutrophils (test code = Neutrophils) 2.1000 1.5000-6.7 000 RBC (test code = RBC) 3.7900 3.7000-4.9000 HGB (test code = HGB) 11.5000 g/dL 11.2000-18.0000 HCT (test code = HCT) 35.1000 % 34.0000-44.0000 MCV (test code = MCV) 92.6000 fL 80.0000-94.0000 MCH (test code = MCH) 30.4000 pg 27.0000-34.0000 MCHC (test code = MCHC) 32.8000 g/dL 31.5000-36.0000 RDW (test code = RDW) 16.5000 11.0000-18.0000 PLT (test code = PLT) 163.0000 140.0000-440.0000 MPV (test code = MPV) 10.0000 fL 6.8000-10.6000 [id number] 11:07:00 Test Item Value Reference Range Comments Creatinine (test code = Creatinine) 4.3000 mg/dL 0.5000-1.200 0 Cr Clearance (Est) (test code = Cr 19.9300 85.0000-125.0 000 Clearance (Est)) Glucose (test code = Glucose) 132.0000 mg/dL 70.0000-118.0000 BUN (test code = BUN) 29.0000 mg/dL 7.0000-22.0000 Sodium (test code = Sodium) 134.0000 mmol/L 128.0000-145.0000 Potassium (test code = Potassium) 4.6000 mmol/L 3.6000-5.1000 Chloride (test code = Chloride) 106.0000 mmol/L 96.0000-108.0000 CO2 (test code = CO2) 20.0000 mmol/L 18.0000-33.0000 Calcium (test code = Calcium) 9.7000 mg/dL 8.0000-10.3000 Alkaline Phosphatase (test code = Alkaline 38.0000 42.00 00-141.0000 Phosphatase) ALT (SGPT) (test code = ALT (SGPT)) 20.0000 10.0000-47.0 000 AST (SGOT) (test code = AST (SGOT)) 22.0000 11.0000-37.0 000 Bilirubin, Total (test code = Bilirubin, 0.4000 mg/dL 0.0000- 1.6000 Total) Albumin (test code = Albumin) 4.1000 g/dL 3.5000-5.5000 Protein, Total (test code = Protein, 7.2000 g/dL 6.4000-8.10 00 Total) eGFR -Ukrainian (test code = eGFR 17.0000 60.0000- 200.0000 -Ukrainian) eGFR Lyq-Zkuxknl-Yywoxlzt (test code = 14.0000 60.0000-2 00.0000 eGFR Uql-Qafousa-Jjembeny) Iron, [id number] 14:17:00 Test Item Value Reference Range Comments Iron, Total (test code = Iron, Total) 80.0000 38.0000-16 9.0000 TIBC (test code = TIBC) 287.0000 250.0000-450.0000 UIBC (test code = UIBC) 207.0000 111.0000-343.0000 % Iron Saturation (test code = % Iron 28.0000 % 15.0000-55 .0000 Saturation) Ferritin (test code = Ferritin) 575.0000 ng/mL 30.0000-400.0000 [id number] 11:06:00 Test Item Value Reference Range Comments WBC (test code = WBC) 3.7000 4.0000-10.0000 Lymphocytes % (test code = Lymphocytes %) 29.2000 % 22.400 0-43.6000 MID% (test code = MID%) 7.7000 % 1.2000-11.2000 Neutrophils % (test code = Neutrophils %) 63.1000 % 48.900 0-69.9000 Lymphocytes (test code = Lymphocytes) 1.0000 1.2000-3.2 000 MID (test code = MID) 0.4000 0.1000-1.1000 Neutrophils (test code = Neutrophils) 2.3000 1.5000-6.7 000 RBC (test code = RBC) 3.8700 3.7000-4.9000 HGB (test code = HGB) 11.1000 g/dL 11.2000-18.0000 HCT (test code = HCT) 36.3000 % 34.0000-44.0000 MCV (test code = MCV) 93.7000 fL 80.0000-94.0000 MCH (test code = MCH) 28.6000 pg 27.0000-34.0000 MCHC (test code = MCHC) 30.5000 g/dL 31.5000-36.0000 RDW (test code = RDW) 16.4000 11.0000-18.0000 PLT (test code = PLT) 301.0000 140.0000-440.0000 MPV (test code = MPV) 8.6000 fL 6.8000-10.6000 [id number] 11:06:00 Test Item Value Reference Range Comments Creatinine (test code = Creatinine) 4.4000 mg/dL 0.5000-1.200 0 Cr Clearance (Est) (test code = Cr 19.8700 85.0000-125.0 000 Clearance (Est)) Glucose (test code = Glucose) 102.0000 mg/dL 70.0000-118.0000 BUN (test code = BUN) 28.0000 mg/dL 7.0000-22.0000 Sodium (test code = Sodium) 137.0000 mmol/L 128.0000-145.0000 Potassium (test code = Potassium) 4.2000 mmol/L 3.6000-5.1000 Chloride (test code = Chloride) 108.0000 mmol/L 96.0000-108.0000 CO2 (test code = CO2) 24.0000 mmol/L 18.0000-33.0000 Calcium (test code = Calcium) 9.3000 mg/dL 8.0000-10.3000 Alkaline Phosphatase (test code = Alkaline 37.0000 42.00 00-141.0000 Phosphatase) ALT (SGPT) (test code = ALT (SGPT)) 10.0000 10.0000-47.0 000 AST (SGOT) (test code = AST (SGOT)) 11.0000 11.0000-37.0 000 Bilirubin, Total (test code = Bilirubin, 0.3000 mg/dL 0.0000- 1.6000 Total) Albumin (test code = Albumin) 4.3000 g/dL 3.5000-5.5000 Protein, Total (test code = Protein, 6.3000 g/dL 6.4000-8.10 00 Total) eGFR -Ukrainian (test code = eGFR 16.0000 60.0000- 200.0000 -Ukrainian) eGFR Czr-Fgegktq-Uuxcmevu (test code = 14.0000 60.0000-2 00.0000 eGFR Zez-Onuylzk-Lqyucyxb) [id number] 12:08:00 Test Item Value Reference Range Comments Creatinine (test code = Creatinine) 4.9000 mg/dL 0.5000-1.200 0 Cr Clearance (Est) (test code = Cr 17.6100 85.0000-125.0 000 Clearance (Est)) Glucose (test code = Glucose) 123.0000 mg/dL 70.0000-118.0000 BUN (test code = BUN) 35.0000 mg/dL 7.0000-22.0000 Sodium (test code = Sodium) 137.0000 mmol/L 128.0000-145.0000 Potassium (test code = Potassium) 4.2000 mmol/L 3.6000-5.1000 Chloride (test code = Chloride) 108.0000 mmol/L 96.0000-108.0000 CO2 (test code = CO2) 24.0000 mmol/L 18.0000-33.0000 Calcium (test code = Calcium) 9.5000 mg/dL 8.0000-10.3000 Alkaline Phosphatase (test code = Alkaline 42.0000 42.00 00-141.0000 Phosphatase) ALT (SGPT) (test code = ALT (SGPT)) 10.0000 10.0000-47.0 000 AST (SGOT) (test code = AST (SGOT)) 12.0000 11.0000-37.0 000 Bilirubin, Total (test code = Bilirubin, 0.2000 mg/dL 0.0000- 1.6000 Total) Albumin (test code = Albumin) 4.3000 g/dL 3.5000-5.5000 Protein, Total (test code = Protein, 6.5000 g/dL 6.4000-8.10 00 Total) eGFR -Ukrainian (test code = eGFR 15.0000 60.0000- 200.0000 -Ukrainian) eGFR Ltu-Fcwvgbg-Nbciiqnk (test code = 12.0000 60.0000-2 00.0000 eGFR Wzw-Paaeurs-Yqyhuhta) [id number] 12:07:00 Test Item Value Reference Range Comments WBC (test code = WBC) 3.6000 4.0000-10.0000 Lymphocytes % (test code = Lymphocytes %) 28.0000 % 22.400 0-43.6000 MID% (test code = MID%) 9.0000 % 1.2000-11.1999 Neutrophils % (test code = Neutrophils %) 63.0000 % 48.900 0-69.9000 Lymphocytes (test code = Lymphocytes) 1.0000 1.2000-3.2 000 MID (test code = MID) 0.3000 0.1000-1.1000 Neutrophils (test code = Neutrophils) 2.3000 1.5000-6.7 000 RBC (test code = RBC) 3.6000 3.7000-4.9000 HGB (test code = HGB) 11.1000 g/dL 11.2000-18.0000 HCT (test code = HCT) 33.6000 % 34.0000-44.0000 MCV (test code = MCV) 93.1000 fL 80.0000-94.0000 MCH (test code = MCH) 31.0000 pg 27.0000-34.0000 MCHC (test code = MCHC) 33.2000 g/dL 31.5000-36.0000 RDW (test code = RDW) 16.8000 11.0000-18.0000 PLT (test code = PLT) 238.0000 140.0000-440.0000 MPV (test code = MPV) 8.0000 fL 6.8000-10.6000 [id number] 11:09:00 Test Item Value Reference Range Comments WBC (test code = WBC) 4.6000 4.0000-10.0000 Lymphocytes % (test code = Lymphocytes %) 26.6000 % 22.400 0-43.6000 MID% (test code = MID%) 7.6000 % 1.1999-11.1999 Neutrophils % (test code = Neutrophils %) 65.8000 % 48.900 0-69.9000 Lymphocytes (test code = Lymphocytes) 1.2000 1.2000-3.2 000 MID (test code = MID) 0.4000 0.1000-1.1000 Neutrophils (test code = Neutrophils) 3.0000 1.5000-6.7 000 RBC (test code = RBC) 4.1500 3.7000-4.9000 HGB (test code = HGB) 12.8000 g/dL 11.2000-18.0000 HCT (test code = HCT) 40.1000 % 34.0000-44.0000 MCV (test code = MCV) 96.5000 fL 80.0000-94.0000 MCH (test code = MCH) 30.9000 pg 27.0000-34.0000 MCHC (test code = MCHC) 32.0000 g/dL 31.5000-36.0000 RDW (test code = RDW) 17.7000 11.0000-18.0000 PLT (test code = PLT) 249.0000 140.0000-440.0000 MPV (test code = MPV) 8.4000 fL 6.8000-10.6000 [id number] 11:09:00 Test Item Value Reference Range Comments Creatinine (test code = Creatinine) 3.8000 mg/dL 0.5000-1.200 0 Cr Clearance (Est) (test code = Cr 22.7000 85.0000-125.0 000 Clearance (Est)) Glucose (test code = Glucose) 132.0000 mg/dL 70.0000-118.0000 BUN (test code = BUN) 34.0000 mg/dL 7.0000-22.0000 Sodium (test code = Sodium) 136.0000 mmol/L 128.0000-145.0000 Potassium (test code = Potassium) 4.1000 mmol/L 3.6000-5.1000 Chloride (test code = Chloride) 108.0000 mmol/L 96.0000-108.0000 CO2 (test code = CO2) 23.0000 mmol/L 18.0000-33.0000 Calcium (test code = Calcium) 10.0000 mg/dL 8.0000-10.3000 Alkaline Phosphatase (test code = Alkaline 44.0000 42.00 00-141.0000 Phosphatase) ALT (SGPT) (test code = ALT (SGPT)) 16.0000 10.0000-47.0 000 AST (SGOT) (test code = AST (SGOT)) 16.0000 11.0000-37.0 000 Bilirubin, Total (test code = Bilirubin, 0.3000 mg/dL 0.0000- 1.6000 Total) Albumin (test code = Albumin) 4.7000 g/dL 3.5000-5.5000 Protein, Total (test code = Protein, 7.0000 g/dL 6.4000-8.10 00 Total) eGFR -Ukrainian (test code = eGFR 19.0000 60.0000- 200.0000 -Ukrainian) eGFR Srd-Mbhlnfb-Xdwjivhl (test code = 16.0000 60.0000-2 00.0000 eGFR Mwy-Mwimsnp-Fwcvrqtc) [id number] 13:40:00 Test Item Value Reference Range Comments Creatinine (test code = Creatinine) 3.3500 mg/dL 0.7600-1.270 0 Cr Clearance (Est) (test code = Cr 25.6700 85.0000-125.0 000 Clearance (Est)) Glucose (test code = Glucose) 117.0000 mg/dL 65.0000-99.0000 BUN (test code = BUN) 28.0000 mg/dL 8.0000-27.0000 eGFR Wya-Qkqdtcs-Bbsfhort (test code = 18.0000 eGFR Bjn-Cjadolj-Qxjntand) eGFR -Ukrainian (test code = eGFR 21.0000 -Ukrainian) BUN/Creat Ratio (test code = BUN/Creat 8.0000 10.0000-2 4.0000 Ratio) Sodium (test code = Sodium) 143.0000 mmol/L 134.0000-144.0000 Potassium (test code = Potassium) 4.6000 mmol/L 3.5000-5.2000 Chloride (test code = Chloride) 107.0000 mmol/L 96.0000-106.0000 CO2 (test code = CO2) 20.0000 mmol/L 20.0000-29.0000 Calcium (test code = Calcium) 9.8000 mg/dL 8.6000-10.2000 Protein, Total (test code = Protein, 6.5000 g/dL 6.0000-8.50 00 Total) Albumin (test code = Albumin) 4.5000 g/dL 3.8000-4.8000 Globulin (test code = Globulin) 2.0000 g/dL 1.5000-4.5000 A/G Ratio (test code = A/G Ratio) 2.3000 1.2000-2.2000 Bilirubin, Total (test code = Bilirubin, 0.2000 mg/dL 0.0000- 1.2000 Total) Alkaline Phosphatase (test code = Alkaline 41.0000 39.00 00-117.0000 Phosphatase) AST (SGOT) (test code = AST (SGOT)) 10.0000 0.0000-40.00 00 ALT (SGPT) (test code = ALT (SGPT)) 7.0000 0.0000-44.00 00 Iron, Total (test code = Iron, Total) 63.0000 38.0000-16 9.0000 TIBC (test code = TIBC) 297.0000 250.0000-450.0000 UIBC (test code = UIBC) 234.0000 111.0000-343.0000 % Iron Saturation (test code = % Iron 21.0000 % 15.0000-55 .0000 Saturation) Ferritin (test code = Ferritin) 357.0000 ng/mL 30.0000-400.0000 [id number] 11:58:00 Test Item Value Reference Range Comments WBC (test code = WBC) 4.1000 4.0000-10.0000 Lymphocytes % (test code = Lymphocytes %) 27.8000 % 22.400 0-43.6000 MID% (test code = MID%) 9.4000 % 1.1999- Neutrophils % (test code = Neutrophils %) 62.8000 % 48.900 0-69.9000 Lymphocytes (test code = Lymphocytes) 1.1000 1.2000-3.2 000 MID (test code = MID) 0.4000 0.1000-1.1000 Neutrophils (test code = Neutrophils) 2.6000 1.5000-6.7 000 RBC (test code = RBC) 3.7000 3.7000-4.9000 HGB (test code = HGB) 11.9000 g/dL 11.2000-18.0000 HCT (test code = HCT) 36.4000 % 34.0000-44.0000 MCV (test code = MCV) 98.4000 fL 80.0000-94.0000 MCH (test code = MCH) 32.2000 pg 27.0000-34.0000 MCHC (test code = MCHC) 32.7000 g/dL 31.5000-36.0000 RDW (test code = RDW) 19.2000 11.0000-18.0000 PLT (test code = PLT) 287.0000 140.0000-440.0000 MPV (test code = MPV) 7.8000 fL 6.8000-10.6000 [id number] 11:31:00 Test Item Value Reference Range Comments WBC (test code = WBC) 4.5000 4.0000-10.0000 Lymphocytes % (test code = Lymphocytes %) 20.7000 % 22.400 0-43.6000 MID% (test code = MID%) 21.6000 % .1999- Neutrophils % (test code = Neutrophils %) 57.7000 % 48.900 0-69.9000 Lymphocytes (test code = Lymphocytes) 0.9000 1.2000-3.2 000 MID (test code = MID) 1.0000 0.1000-1.1000 Neutrophils (test code = Neutrophils) 2.6000 1.5000-6.7 000 RBC (test code = RBC) 3.3900 3.7000-4.9000 HGB (test code = HGB) 9.8000 g/dL 11.2000-18.0000 HCT (test code = HCT) 32.1000 % 34.0000-44.0000 MCV (test code = MCV) 94.7000 fL 80.0000-94.0000 MCH (test code = MCH) 29.1000 pg 27.0000-34.0000 MCHC (test code = MCHC) 30.7000 g/dL 31.5000-36.0000 RDW (test code = RDW) 18.5000 11.0000-18.0000 PLT (test code = PLT) 261.0000 140.0000-440.0000 MPV (test code = MPV) 8.9000 fL 6.8000-10.6000 [id number] 15:41:00 Test Item Value Reference Range Comments PSA (test code = PSA) 0.1000 ng/mL 0.0000-4.0000 [id number] 12:45:00 Test Item Value Reference Range Comments WBC (test code = WBC) 4.3000 4.0000-10.0000 Lymphocytes % (test code = Lymphocytes %) 13.8000 % 22.400 0-43.6000 MID% (test code = MID%) 18.6000 % 1.2000-11.2000 Neutrophils % (test code = Neutrophils %) 67.6000 % 48.900 0-69.9000 Lymphocytes (test code = Lymphocytes) 0.5000 1.2000-3.2 000 MID (test code = MID) 0.9000 0.1000-1.1000 Neutrophils (test code = Neutrophils) 2.9000 1.5000-6.7 000 RBC (test code = RBC) 3.3900 3.7000-4.9000 HGB (test code = HGB) 10.4000 g/dL 11.2000-18.0000 HCT (test code = HCT) 33.8000 % 34.0000-44.0000 MCV (test code = MCV) 99.6000 fL 80.0000-94.0000 MCH (test code = MCH) 30.9000 pg 27.0000-34.0000 MCHC (test code = MCHC) 31.0000 g/dL 31.5000-36.0000 RDW (test code = RDW) 20.9000 11.0000-18.0000 PLT (test code = PLT) 243.0000 140.0000-440.0000 MPV (test code = MPV) 8.1000 fL 6.8000-10.6000 [id number] 11:08:00 Test Item Value Reference Range Comments WBC (test code = WBC) 5.4000 4.0000-10.0000 Lymphocytes % (test code = Lymphocytes %) 16.0000 % 22.400 0-43.6000 MID% (test code = MID%) 19.2000 % 1.1999-.1999 Neutrophils % (test code = Neutrophils %) 64.8000 % 48.900 0-69.9000 Lymphocytes (test code = Lymphocytes) 0.8000 1.2000-3.2 000 MID (test code = MID) 1.1000 0.1000-1.1000 Neutrophils (test code = Neutrophils) 3.5000 1.5000-6.7 000 RBC (test code = RBC) 3.1600 3.7000-4.9000 HGB (test code = HGB) 9.9000 g/dL 11.2000-18.0000 HCT (test code = HCT) 30.9000 % 34.0000-44.0000 MCV (test code = MCV) 97.5000 fL 80.0000-94.0000 MCH (test code = MCH) 31.2000 pg 27.0000-34.0000 MCHC (test code = MCHC) 32.0000 g/dL 31.5000-36.0000 RDW (test code = RDW) 19.7000 11.0000-18.0000 PLT (test code = PLT) 236.0000 140.0000-440.0000 MPV (test code = MPV) 8.5000 fL 6.8000-10.6000 [id number] 11:54:00 Test Item Value Reference Range Comments WBC (test code = WBC) 2.8000 4.0000-10.0000 Lymphocytes % (test code = Lymphocytes %) 27.1000 % 22.400 0-43.6000 MID% (test code = MID%) 25.1000 % .1999- Neutrophils % (test code = Neutrophils %) 47.8000 % 48.900 0-69.9000 Lymphocytes (test code = Lymphocytes) 0.7000 1.2000-3.2 000 MID (test code = MID) 0.8000 0.1000-1.1000 Neutrophils (test code = Neutrophils) 1.3000 1.5000-6.7 000 RBC (test code = RBC) 3.2000 3.7000-4.9000 HGB (test code = HGB) 10.1000 g/dL 11.1999-18.0000 HCT (test code = HCT) 31.0000 % 34.0000-44.0000 MCV (test code = MCV) 96.8000 fL 80.0000-94.0000 MCH (test code = MCH) 31.7000 pg 27.0000-34.0000 MCHC (test code = MCHC) 32.7000 g/dL 31.5000-36.0000 RDW (test code = RDW) 20.0000 11.0000-18.0000 PLT (test code = PLT) 245.0000 140.0000-440.0000 MPV (test code = MPV) 7.8000 fL 6.8000-10.6000 [id number] 11:25:00 Test Item Value Reference Range Comments WBC (test code = WBC) 2.6000 4.0000-10.0000 Lymphocytes % (test code = Lymphocytes %) 13.9000 % 22.400 0-43.6000 MID% (test code = MID%) 21.3000 % 1.2000-11.2000 Neutrophils % (test code = Neutrophils %) 64.8000 % 48.900 0-69.9000 Lymphocytes (test code = Lymphocytes) 0.3000 1.2000-3.2 000 MID (test code = MID) 0.6000 0.1000-1.1000 Neutrophils (test code = Neutrophils) 1.7000 1.5000-6.7 000 RBC (test code = RBC) 3.1700 3.7000-4.9000 HGB (test code = HGB) 9.8000 g/dL 11.2000-18.0000 HCT (test code = HCT) 30.8000 % 34.0000-44.0000 MCV (test code = MCV) 96.8000 fL 80.0000-94.0000 MCH (test code = MCH) 30.9000 pg 27.0000-34.0000 MCHC (test code = MCHC) 31.9000 g/dL 31.5000-36.0000 RDW (test code = RDW) 21.2000 11.0000-18.0000 PLT (test code = PLT) 350.0000 140.0000-440.0000 MPV (test code = MPV) 7.0000 fL 6.8000-10.6000 [id number] 11:25:00 Test Item Value Reference Range Comments Creatinine (test code = Creatinine) 4.5000 mg/dL 0.5000-1.200 0 Cr Clearance (Est) (test code = Cr 18.6200 85.0000-125.0 000 Clearance (Est)) Glucose (test code = Glucose) 87.0000 mg/dL 70.0000-118.0000 BUN (test code = BUN) 20.0000 mg/dL 7.0000-22.0000 Sodium (test code = Sodium) 138.0000 mmol/L 128.0000-145.0000 Potassium (test code = Potassium) 4.5000 mmol/L 3.6000-5.1000 Chloride (test code = Chloride) 102.0000 mmol/L 96.0000-108.0000 CO2 (test code = CO2) 31.0000 mmol/L 18.0000-33.0000 Calcium (test code = Calcium) 9.0900 mg/dL 8.0000-10.3000 Alkaline Phosphatase (test code = Alkaline 55.0000 42.00 00-141.0000 Phosphatase) ALT (SGPT) (test code = ALT (SGPT)) 8.0000 10.0000-47.0 000 AST (SGOT) (test code = AST (SGOT)) 13.0000 11.0000-37.0 000 Bilirubin, Total (test code = Bilirubin, 0.3000 mg/dL 0.0000- 1.6000 Total) Albumin (test code = Albumin) 4.3000 g/dL 3.5000-5.5000 Protein, Total (test code = Protein, 6.2000 g/dL 6.4000-8.10 00 Total) eGFR -Ukrainian (test code = eGFR 16.0000 60.0000- 200.0000 -Ukrainian) eGFR Frs-Onavvry-Kmqxdbtn (test code = 13.0000 60.0000-2 00.0000 eGFR Dpk-Igdmluz-Scfbpjoz) [id number] 11:55:00 Test Item Value Reference Range Comments WBC (test code = WBC) 1.7000 4.0000-10.0000 Lymphocytes % (test code = Lymphocytes %) 18.8000 % 22.400 0-43.6000 MID% (test code = MID%) 23.4000 % 1.2000-11.2000 Neutrophils % (test code = Neutrophils %) 57.8000 % 48.900 0-69.9000 Lymphocytes (test code = Lymphocytes) 0.3000 1.2000-3.2 000 MID (test code = MID) 0.4000 0.1000-1.1000 Neutrophils (test code = Neutrophils) 1.0000 1.5000-6.7 000 RBC (test code = RBC) 3.1400 3.7000-4.9000 HGB (test code = HGB) 8.7000 g/dL 11.2000-18.0000 HCT (test code = HCT) 29.4000 % 34.0000-44.0000 MCV (test code = MCV) 93.6000 fL 80.0000-94.0000 MCH (test code = MCH) 27.8000 pg 27.0000-34.0000 MCHC (test code = MCHC) 29.7000 g/dL 31.5000-36.0000 RDW (test code = RDW) 17.9000 11.0000-18.0000 PLT (test code = PLT) 210.0000 140.0000-440.0000 MPV (test code = MPV) 9.6000 fL 6.8000-10.6000 Protein, [id number] 13:12:00 Test Item Value Reference Range Comments Protein, Total (test code = Protein, Total) 6.3000 g/dL 6.00 00-8.5000 Albumin (test code = Albumin) 3.8000 g/dL 2.9000-4.4000 Globulin (test code = Globulin) 2.5000 g/dL 2.2000-3.9000 A/G Ratio (test code = A/G Ratio) 1.6000 0.7000-1.7000 [id number] 13:12:00 Test Item Value Reference Range Comments IGG (test code = IGG) 608.0000 mg/dL 700.3530-2945.0000 IGA (test code = IGA) 318.0000 mg/dL 61.0000-437.0000 IGM (test code = IGM) 19.0000 mg/dL 20.0000-172.0000 Alpha-1 Globulin (test code 0.2000 g/dL 0.0000-0.4000 = Alpha-1 Globulin) Alpha-2 Globulin (test code 0.7000 g/dL 0.4000-1.0000 = Alpha-2 Globulin) Beta Globulin (test code = 1.1000 g/dL 0.7000-1.3000 Beta Globulin) Gamma Globulin (test code = 0.5000 g/dL 0.4000-1.8000 Gamma Globulin) M-Derick (test code = M-Derick) Immunofixation Interp, Serum Comment An apparent normal (test code = Immunofixation immunofixation pattern Interp, Serum) PE Note (test code = PE Comment Protein Note) electrophoresis scan will follow via computer, mail, or marine technician delivery Cofield Free Light Chain (test 73.8000 mg/L 3.3000-19.4000 code = Cofield Free Light Chain) Lambda Free Light Chain 22.2000 mg/L 5.7000-26.3000 (test code = Lambda Free Light Chain) Cofield/Lambda Free Ratio 3.3200 0.2600-1.6500 (test code = Cofield/Lambda Free Ratio) Beta-2 Microglobulin (test 8.6000 mg/L 0.6000-2.4000 code = Beta-2 Microglobulin) [facility] [id number] 13:12:00 Test Item Value Reference Range Comments [facility] Comments (test code = DUP Duplicate procedure [facility] Comments) ordered. TEST: [id number] Protein Electro.,S [id number] 11:51:00 Test Item Value Reference Range Comments WBC (test code = WBC) 1.8000 4.0000-10.0000 Lymphocytes % (test code = Lymphocytes %) 18.9000 % 22.400 0-43.6000 MID% (test code = MID%) 20.7000 % 1.2000-11.2000 Neutrophils % (test code = Neutrophils %) 60.4000 % 48.900 0-69.9000 Lymphocytes (test code = Lymphocytes) 0.3000 1.2000-3.2 000 MID (test code = MID) 0.4000 0.1000-1.1000 Neutrophils (test code = Neutrophils) 1.1000 1.5000-6.7 000 RBC (test code = RBC) 3.3700 3.7000-4.9000 HGB (test code = HGB) 9.9000 g/dL 11.2000-18.0000 HCT (test code = HCT) 31.6000 % 34.0000-44.0000 MCV (test code = MCV) 93.7000 fL 80.0000-94.0000 MCH (test code = MCH) 29.6000 pg 27.0000-34.0000 MCHC (test code = MCHC) 31.6000 g/dL 31.5000-36.0000 RDW (test code = RDW) 18.9000 11.0000-18.0000 PLT (test code = PLT) 241.0000 140.0000-440.0000 MPV (test code = MPV) 8.5000 fL 6.8000-10.6000 [id number] 15:09:00 Test Item Value Reference Range Comments Creatinine (test code = Creatinine) 3.9400 mg/dL 0.7600-1.270 0 Cr Clearance (Est) (test code = Cr 21.4100 85.0000-125.0 000 Clearance (Est)) Glucose (test code = Glucose) 84.0000 mg/dL 65.0000-99.0000 BUN (test code = BUN) 42.0000 mg/dL 8.0000-27.0000 eGFR Yns-Rqpfudw-Csojrzyd (test code = 15.0000 eGFR Wmh-Zdmxcfz-Ldztdbjh) eGFR -Ukrainian (test code = eGFR 17.0000 -Ukrainian) BUN/Creat Ratio (test code = BUN/Creat 11.0000 10.0000-2 4.0000 Ratio) Sodium (test code = Sodium) 138.0000 mmol/L 134.0000-144.0000 Potassium (test code = Potassium) 4.8000 mmol/L 3.5000-5.2000 Chloride (test code = Chloride) 108.0000 mmol/L 96.0000-106.0000 CO2 (test code = CO2) 13.0000 mmol/L 20.0000-29.0000 Calcium (test code = Calcium) 9.2000 mg/dL 8.6000-10.2000 Protein, Total (test code = Protein, 6.4000 g/dL 6.0000-8.50 00 Total) Albumin (test code = Albumin) 3.8000 g/dL 2.9000-4.4000 Globulin (test code = Globulin) 2.6000 g/dL 2.2000-3.9000 A/G Ratio (test code = A/G Ratio) 1.5000 0.7000-1.7000 Bilirubin, Total (test code = Bilirubin, 0.2000 mg/dL 0.0000- 1.2000 Total) Alkaline Phosphatase (test code = Alkaline 61.0000 39.00 00-117.0000 Phosphatase) AST (SGOT) (test code = AST (SGOT)) 11.0000 0.0000-40.00 00 ALT (SGPT) (test code = ALT (SGPT)) 7.0000 0.0000-44.00 00 Iron, Total (test code = Iron, Total) 53.0000 38.0000-16 9.0000 TIBC (test code = TIBC) 288.0000 250.0000-450.0000 UIBC (test code = UIBC) 235.0000 111.0000-343.0000 % Iron Saturation (test code = % Iron 18.0000 % 15.0000-55 .0000 Saturation) Ferritin (test code = Ferritin) 706.0000 ng/mL 30.0000-400.0000 [id number] 15:09:00 Test Item Value Reference Range Comments IGG (test code = IGG) 651.0000 mg/dL 700.3500-3523.0000 IGA (test code = IGA) 367.0000 mg/dL 61.0000-437.0000 IGM (test code = IGM) 15.0000 mg/dL 20.0000-172.0000 Alpha-1 Globulin (test code 0.2000 g/dL 0.0000-0.4000 = Alpha-1 Globulin) Alpha-2 Globulin (test code 0.7000 g/dL 0.4000-1.0000 = Alpha-2 Globulin) Beta Globulin (test code = 1.1000 g/dL 0.7000-1.3000 Beta Globulin) Gamma Globulin (test code = 0.5000 g/dL 0.4000-1.8000 Gamma Globulin) M-Derick (test code = M-Derick) Immunofixation Interp, Serum Comment An apparent normal (test code = Immunofixation immunofixation pattern Interp, Serum) PE Note (test code = PE Comment Protein Note) electrophoresis scan will follow via computer, mail, or marine technician delivery Cofield Free Light Chain (test 77.9000 mg/L 3.3000-19.4000 code = Cofield Free Light Chain) Lambda Free Light Chain 25.4000 mg/L 5.7000-26.3000 (test code = Lambda Free Light Chain) Cofield/Lambda Free Ratio 3.0700 0.2600-1.6500 (test code = Cofield/Lambda Free Ratio) Beta-2 Microglobulin (test 8.0000 mg/L 0.6000-2.4000 code = Beta-2 Microglobulin) [id number] 11:52:00 Test Item Value Reference Range Comments Creatinine (test code = Creatinine) 4.1000 mg/dL 0.5000-1.200 0 Cr Clearance (Est) (test code = Cr 20.5800 85.0000-125.0 000 Clearance (Est)) Glucose (test code = Glucose) 90.0000 mg/dL 70.0000-118.0000 BUN (test code = BUN) 40.0000 mg/dL 7.0000-22.0000 Sodium (test code = Sodium) 138.0000 mmol/L 128.0000-145.0000 Potassium (test code = Potassium) 4.4000 mmol/L 3.6000-5.1000 Chloride (test code = Chloride) 108.0000 mmol/L 96.0000-108.0000 CO2 (test code = CO2) 19.0000 mmol/L 18.0000-33.0000 Calcium (test code = Calcium) 7.9600 mg/dL 8.0000-10.3000 Alkaline Phosphatase (test code = Alkaline 59.0000 42.00 00-141.0000 Phosphatase) ALT (SGPT) (test code = ALT (SGPT)) 7.0000 10.0000-47.0 000 AST (SGOT) (test code = AST (SGOT)) 9.0000 11.0000-37.0 000 Bilirubin, Total (test code = Bilirubin, 0.3000 mg/dL 0.0000- 1.6000 Total) Albumin (test code = Albumin) 4.1000 g/dL 3.5000-5.5000 Protein, Total (test code = Protein, 6.7000 g/dL 6.4000-8.10 00 Total) eGFR -Ukrainian (test code = eGFR 18.0000 60.0000- 200.0000 -Ukrainian) eGFR Yhd-Ksmrdts-Jcqrsqio (test code = 15.0000 60.0000-2 00.0000 eGFR Rqf-Okqmudd-Smwxtxva) [id number] 11:51:00 Test Item Value Reference Range Comments WBC (test code = WBC) 3.1000 4.0000-10.0000 Lymphocytes % (test code = Lymphocytes %) 13.5000 % 22.400 0-43.6000 MID% (test code = MID%) 17.9000 % 1.1999-11.1999 Neutrophils % (test code = Neutrophils %) 68.6000 % 48.900 0-69.9000 Lymphocytes (test code = Lymphocytes) 0.4000 1.2000-3.2 000 MID (test code = MID) 0.6000 0.1000-1.1000 Neutrophils (test code = Neutrophils) 2.1000 1.5000-6.7 000 RBC (test code = RBC) 3.4800 3.7000-4.9000 HGB (test code = HGB) 10.7000 g/dL 11.2000-18.0000 HCT (test code = HCT) 32.6000 % 34.0000-44.0000 MCV (test code = MCV) 93.6000 fL 80.0000-94.0000 MCH (test code = MCH) 30.8000 pg 27.0000-34.0000 MCHC (test code = MCHC) 32.9000 g/dL 31.5000-36.0000 RDW (test code = RDW) 19.2000 11.0000-18.0000 PLT (test code = PLT) 280.0000 140.0000-440.0000 MPV (test code = MPV) 8.7000 fL 6.8000-10.6000 Iron, [id number] 15:31:00 Test Item Value Reference Range Comments Iron, Total (test code = Iron, Total) 30.0000 38.0000-16 9.0000 TIBC (test code = TIBC) 262.0000 250.0000-450.0000 UIBC (test code = UIBC) 232.0000 111.0000-343.0000 % Iron Saturation (test code = % Iron 11.0000 % 15.0000-55 .0000 Saturation) Ferritin (test code = Ferritin) 553.0000 ng/mL 30.0000-400.0000 [id number] 11:31:00 Test Item Value Reference Range Comments WBC (test code = WBC) 4.0000 4.0000-10.0000 Lymphocytes % (test code = Lymphocytes %) 10.6000 % 22.400 0-43.6000 MID% (test code = MID%) 12.7000 % .1999-11 Neutrophils % (test code = Neutrophils %) 76.7000 % 48.900 0-69.9000 Lymphocytes (test code = Lymphocytes) 0.4000 1.2000-3.2 000 MID (test code = MID) 0.5000 0.1000-1.1000 Neutrophils (test code = Neutrophils) 3.1000 1.5000-6.7 000 RBC (test code = RBC) 3.2200 3.7000-4.9000 HGB (test code = HGB) 9.1000 g/dL 11.2000-18.0000 HCT (test code = HCT) 29.6000 % 34.0000-44.0000 MCV (test code = MCV) 91.9000 fL 80.0000-94.0000 MCH (test code = MCH) 28.2000 pg 27.0000-34.0000 MCHC (test code = MCHC) 30.7000 g/dL 31.5000-36.0000 RDW (test code = RDW) 21.6000 11.0000-18.0000 PLT (test code = PLT) 412.0000 140.0000-440.0000 MPV (test code = MPV) 8.2000 fL 6.8000-10.6000 [id number] 11:30:00 Test Item Value Reference Range Comments Creatinine (test code = Creatinine) 3.8000 mg/dL 0.5000-1.200 0 Cr Clearance (Est) (test code = Cr 23.2300 85.0000-125.0 000 Clearance (Est)) Glucose (test code = Glucose) 159.0000 mg/dL 70.0000-118.0000 BUN (test code = BUN) 41.0000 mg/dL 7.0000-22.0000 Sodium (test code = Sodium) 141.0000 mmol/L 128.0000-145.0000 Potassium (test code = Potassium) 4.0000 mmol/L 3.6000-5.1000 Chloride (test code = Chloride) 110.0000 mmol/L 96.0000-108.0000 CO2 (test code = CO2) 22.0000 mmol/L 18.0000-33.0000 Calcium (test code = Calcium) 8.4100 mg/dL 8.0000-10.3000 Alkaline Phosphatase (test code = Alkaline 55.0000 42.00 00-141.0000 Phosphatase) ALT (SGPT) (test code = ALT (SGPT)) 10.0000 10.0000-47.0 000 AST (SGOT) (test code = AST (SGOT)) 11.0000 11.0000-37.0 000 Bilirubin, Total (test code = Bilirubin, 0.1000 mg/dL 0.0000- 1.6000 Total) Albumin (test code = Albumin) 4.0000 g/dL 3.5000-5.5000 Protein, Total (test code = Protein, 5.9000 g/dL 6.4000-8.10 00 Total) eGFR -Ukrainian (test code = eGFR 20.0000 60.0000- 200.0000 -Ukrainian) eGFR Kwj-Mibymru-Qzyqmcaw (test code = 16.0000 60.0000-2 00.0000 eGFR Vps-Hyqwlcx-Gmuadzvw) [id number] 12:15:00 Test Item Value Reference Range Comments WBC (test code = WBC) 5.4000 4.0000-10.0000 Lymphocytes % (test code = Lymphocytes %) 11.4000 % 22.400 0-43.6000 MID% (test code = MID%) 15.0000 % 1.2000-11.2000 Neutrophils % (test code = Neutrophils %) 73.6000 % 48.900 0-69.9000 Lymphocytes (test code = Lymphocytes) 0.6000 1.2000-3.2 000 MID (test code = MID) 0.9000 0.1000-1.1000 Neutrophils (test code = Neutrophils) 3.9000 1.5000-6.7 000 RBC (test code = RBC) 2.8700 3.7000-4.9000 HGB (test code = HGB) 8.7000 g/dL 11.2000-18.0000 HCT (test code = HCT) 27.7000 % 34.0000-44.0000 MCV (test code = MCV) 96.5000 fL 80.0000-94.0000 MCH (test code = MCH) 30.3000 pg 27.0000-34.0000 MCHC (test code = MCHC) 31.4000 g/dL 31.5000-36.0000 RDW (test code = RDW) 18.7000 11.0000-18.0000 PLT (test code = PLT) 268.0000 140.0000-440.0000 MPV (test code = MPV) 9.1000 fL 6.8000-10.6000 [id number] 12:20:00 Test Item Value Reference Range Comments WBC (test code = WBC) 5.3000 4.0000-10.0000 Lymphocytes % (test code = Lymphocytes %) 13.1000 % 22.400 0-43.6000 MID% (test code = MID%) 17.3000 % 1.2000-11.2000 Neutrophils % (test code = Neutrophils %) 69.6000 % 48.900 0-69.9000 Lymphocytes (test code = Lymphocytes) 0.7000 1.2000-3.2 000 MID (test code = MID) 0.9000 0.1000-1.1000 Neutrophils (test code = Neutrophils) 3.7000 1.5000-6.7 000 RBC (test code = RBC) 2.8800 3.7000-4.9000 HGB (test code = HGB) 9.1000 g/dL 11.2000-18.0000 HCT (test code = HCT) 27.8000 % 34.0000-44.0000 MCV (test code = MCV) 96.5000 fL 80.0000-94.0000 MCH (test code = MCH) 31.7000 pg 27.0000-34.0000 MCHC (test code = MCHC) 32.8000 g/dL 31.5000-36.0000 RDW (test code = RDW) 17.9000 11.0000-18.0000 PLT (test code = PLT) 250.0000 140.0000-440.0000 MPV (test code = MPV) 9.3000 fL 6.8000-10.6000 [id number] 12:25:00 Test Item Value Reference Range Comments WBC (test code = WBC) 4.7000 4.0000-10.0000 Lymphocytes % (test code = Lymphocytes %) 17.2000 % 22.400 0-43.6000 MID% (test code = MID%) 14.8000 % 1.1999-11.1999 Neutrophils % (test code = Neutrophils %) 68.0000 % 48.900 0-69.9000 Lymphocytes (test code = Lymphocytes) 0.8000 1.2000-3.2 000 MID (test code = MID) 0.7000 0.1000-1.1000 Neutrophils (test code = Neutrophils) 3.2000 1.5000-6.7 000 RBC (test code = RBC) 3.4100 3.7000-4.9000 HGB (test code = HGB) 10.2000 g/dL 11.2000-18.0000 HCT (test code = HCT) 33.3000 % 34.0000-44.0000 MCV (test code = MCV) 97.6000 fL 80.0000-94.0000 MCH (test code = MCH) 29.9000 pg 27.0000-34.0000 MCHC (test code = MCHC) 30.6000 g/dL 31.5000-36.0000 RDW (test code = RDW) 18.1000 11.0000-18.0000 PLT (test code = PLT) 267.0000 140.0000-440.0000 MPV (test code = MPV) 9.0000 fL 6.8000-10.6000 [id number] 11:30:00 Test Item Value Reference Range Comments WBC (test code = WBC) 3.4000 4.0000-10.0000 Lymphocytes % (test code = Lymphocytes %) 13.4000 % 22.400 0-43.6000 MID% (test code = MID%) 16.9000 % 1.2000-11.2000 Neutrophils % (test code = Neutrophils %) 69.7000 % 48.900 0-69.9000 Lymphocytes (test code = Lymphocytes) 0.4000 1.2000-3.2 000 MID (test code = MID) 0.6000 0.1000-1.1000 Neutrophils (test code = Neutrophils) 2.4000 1.5000-6.7 000 RBC (test code = RBC) 3.3200 3.7000-4.9000 HGB (test code = HGB) 10.1000 g/dL 11.2000-18.0000 HCT (test code = HCT) 32.3000 % 34.0000-44.0000 MCV (test code = MCV) 97.2000 fL 80.0000-94.0000 MCH (test code = MCH) 30.5000 pg 27.0000-34.0000 MCHC (test code = MCHC) 31.4000 g/dL 31.5000-36.0000 RDW (test code = RDW) 19.5000 11.0000-18.0000 PLT (test code = PLT) 396.0000 140.0000-440.0000 MPV (test code = MPV) 8.0000 fL 6.8000-10.6000 [id number] 11:30:00 Test Item Value Reference Range Comments Creatinine (test code = Creatinine) 3.9000 mg/dL 0.5000-1.200 0 Cr Clearance (Est) (test code = Cr 22.1500 85.0000-125.0 000 Clearance (Est)) Glucose (test code = Glucose) 111.0000 mg/dL 70.0000-118.0000 BUN (test code = BUN) 18.0000 mg/dL 7.0000-22.0000 Sodium (test code = Sodium) 141.0000 mmol/L 128.0000-145.0000 Potassium (test code = Potassium) 4.0000 mmol/L 3.6000-5.1000 Chloride (test code = Chloride) 103.0000 mmol/L 96.0000-108.0000 CO2 (test code = CO2) 28.0000 mmol/L 18.0000-33.0000 Calcium (test code = Calcium) 8.4400 mg/dL 8.0000-10.3000 Alkaline Phosphatase (test code = Alkaline 54.0000 42.00 00-141.0000 Phosphatase) ALT (SGPT) (test code = ALT (SGPT)) 6.0000 10.0000-47.0 000 AST (SGOT) (test code = AST (SGOT)) 12.0000 11.0000-37.0 000 Bilirubin, Total (test code = Bilirubin, 0.3000 mg/dL 0.0000- 1.6000 Total) Albumin (test code = Albumin) 4.5000 g/dL 3.5000-5.5000 Protein, Total (test code = Protein, 6.4000 g/dL 6.4000-8.10 00 Total) eGFR -Ukrainian (test code = eGFR 19.0000 60.0000- 200.0000 -Ukrainian) eGFR Jxe-Koskwuh-Cvnixiao (test code = 16.0000 60.0000-2 00.0000 eGFR Fzv-Dzdykcm-Ihgnxzlm) [id number] 12:00:00 Test Item Value Reference Range Comments WBC (test code = WBC) 2.9000 4.0000-10.0000 Lymphocytes % (test code = Lymphocytes %) 42.2000 % 22.400 0-43.6000 MID% (test code = MID%) 6.3000 % 1.2000-11.2000 Neutrophils % (test code = Neutrophils %) 51.5000 % 48.900 0-69.9000 Lymphocytes (test code = Lymphocytes) 1.2000 1.2000-3.2 000 MID (test code = MID) 0.2000 0.1000-1.1000 Neutrophils (test code = Neutrophils) 1.5000 1.5000-6.7 000 RBC (test code = RBC) 2.8800 3.7000-4.9000 HGB (test code = HGB) 9.3000 g/dL 11.2000-18.0000 HCT (test code = HCT) 28.2000 % 34.0000-44.0000 MCV (test code = MCV) 97.9000 fL 80.0000-94.0000 MCH (test code = MCH) 32.2000 pg 27.0000-34.0000 MCHC (test code = MCHC) 32.9000 g/dL 31.5000-36.0000 RDW (test code = RDW) 17.9000 11.0000-18.0000 PLT (test code = PLT) 252.0000 140.0000-440.0000 MPV (test code = MPV) 9.4000 fL 6.8000-10.6000 [id number] 12:14:00 Test Item Value Reference Range Comments WBC (test code = WBC) 4.0000 4.0000-10.0000 Lymphocytes % (test code = Lymphocytes %) 38.3000 % 22.400 0-43.6000 MID% (test code = MID%) 8.2000 % 1.2000-11.2000 Neutrophils % (test code = Neutrophils %) 53.5000 % 48.900 0-69.9000 Lymphocytes (test code = Lymphocytes) 1.5000 1.2000-3.2 000 MID (test code = MID) 0.4000 0.1000-1.1000 Neutrophils (test code = Neutrophils) 2.1000 1.5000-6.7 000 RBC (test code = RBC) 3.5500 3.7000-4.9000 HGB (test code = HGB) 10.6000 g/dL 11.2000-18.0000 HCT (test code = HCT) 34.3000 % 34.0000-44.0000 MCV (test code = MCV) 96.7000 fL 80.0000-94.0000 MCH (test code = MCH) 29.9000 pg 27.0000-34.0000 MCHC (test code = MCHC) 31.0000 g/dL 31.5000-36.0000 RDW (test code = RDW) 18.2000 11.0000-18.0000 PLT (test code = PLT) 260.0000 140.0000-440.0000 MPV (test code = MPV) 8.9000 fL 6.8000-10.6000 [id number] 12:01:00 Test Item Value Reference Range Comments WBC (test code = WBC) 4.4000 4.0000-10.0000 Lymphocytes % (test code = Lymphocytes %) 19.7000 % 22.400 0-43.6000 MID% (test code = MID%) 19.8000 % 1.2000-11.2000 Neutrophils % (test code = Neutrophils %) 60.5000 % 48.900 0-69.9000 Lymphocytes (test code = Lymphocytes) 0.8000 1.2000-3.2 000 MID (test code = MID) 0.9000 0.1000-1.1000 Neutrophils (test code = Neutrophils) 2.7000 1.5000-6.7 000 RBC (test code = RBC) 2.9700 3.7000-4.9000 HGB (test code = HGB) 9.4000 g/dL 11.2000-18.0000 HCT (test code = HCT) 28.4000 % 34.0000-44.0000 MCV (test code = MCV) 95.5000 fL 80.0000-94.0000 MCH (test code = MCH) 31.7000 pg 27.0000-34.0000 MCHC (test code = MCHC) 33.2000 g/dL 31.5000-36.0000 RDW (test code = RDW) 18.3000 11.0000-18.0000 PLT (test code = PLT) 299.0000 140.0000-440.0000 MPV (test code = MPV) 8.1000 fL 6.8000-10.6000 Protein, [id number] 14:36:00 Test Item Value Reference Range Comments Protein, Total (test code = Protein, Total) 6.3000 g/dL 6.00 00-8.5000 Albumin (test code = Albumin) 4.0000 g/dL 2.9000-4.4000 Globulin (test code = Globulin) 2.3000 g/dL 2.2000-3.9000 A/G Ratio (test code = A/G Ratio) 1.8000 0.7000-1.7000 [id number] 14:36:00 Test Item Value Reference Range Comments IGG (test code = IGG) 571.0000 mg/dL 700.5479-4193.0000 IGA (test code = IGA) 211.0000 mg/dL 61.0000-437.0000 IGM (test code = IGM) 14.0000 mg/dL 20.0000-172.0000 Alpha-1 Globulin (test code 0.2000 g/dL 0.0000-0.4000 = Alpha-1 Globulin) Alpha-2 Globulin (test code 0.6000 g/dL 0.4000-1.0000 = Alpha-2 Globulin) Beta Globulin (test code = 1.0000 g/dL 0.7000-1.3000 Beta Globulin) Gamma Globulin (test code = 0.4000 g/dL 0.4000-1.8000 Gamma Globulin) M-Derick (test code = M-Derick) Immunofixation Interp, Serum Comment An apparent normal (test code = Immunofixation immunofixation pattern Interp, Serum) PE Note (test code = PE Comment Protein Note) electrophoresis scan will follow via computer, mail, or marine technician delivery Cofield Free Light Chain (test 58.6000 mg/L 3.3000-19.4000 code = Cofield Free Light Chain) Lambda Free Light Chain 19.4000 mg/L 5.7000-26.3000 (test code = Lambda Free Light Chain) Cofield/Lambda Free Ratio 3.0200 0.2600-1.6500 (test code = Cofield/Lambda Free Ratio) Beta-2 Microglobulin (test 4.7000 mg/L 0.6000-2.4000 code = Beta-2 Microglobulin) [facility] [id number] 14:36:00 Test Item Value Reference Range Comments [facility] Comments (test code = DUP Duplicate procedure [facility] Comments) ordered. TEST: [id number] Protein Electro.,S [id number] 11:33:00 Test Item Value Reference Range Comments WBC (test code = WBC) 4.3000 4.0000-10.0000 Lymphocytes % (test code = Lymphocytes %) 26.4000 % 22.400 0-43.6000 MID% (test code = MID%) 7.8000 % 1.2000-11.2000 Neutrophils % (test code = Neutrophils %) 65.8000 % 48.900 0-69.9000 Lymphocytes (test code = Lymphocytes) 1.1000 1.2000-3.2 000 MID (test code = MID) 0.4000 0.1000-1.1000 Neutrophils (test code = Neutrophils) 2.8000 1.5000-6.7 000 RBC (test code = RBC) 3.1900 3.7000-4.9000 HGB (test code = HGB) 9.4000 g/dL 11.2000-18.0000 HCT (test code = HCT) 30.2000 % 34.0000-44.0000 MCV (test code = MCV) 94.4000 fL 80.0000-94.0000 MCH (test code = MCH) 29.4000 pg 27.0000-34.0000 MCHC (test code = MCHC) 31.1000 g/dL 31.5000-36.0000 RDW (test code = RDW) 17.2000 11.0000-18.0000 PLT (test code = PLT) 277.0000 140.0000-440.0000 MPV (test code = MPV) 8.9000 fL 6.8000-10.6000 [id number] 11:33:00 Test Item Value Reference Range Comments Creatinine (test code = Creatinine) 4.0000 mg/dL 0.5000-1.200 0 Cr Clearance (Est) (test code = Cr 22.1000 85.0000-125.0 000 Clearance (Est)) Glucose (test code = Glucose) 88.0000 mg/dL 70.0000-118.0000 BUN (test code = BUN) 29.0000 mg/dL 7.0000-22.0000 Sodium (test code = Sodium) 140.0000 mmol/L 128.0000-145.0000 Potassium (test code = Potassium) 4.2000 mmol/L 3.6000-5.1000 Chloride (test code = Chloride) 107.0000 mmol/L 96.0000-108.0000 CO2 (test code = CO2) 28.0000 mmol/L 18.0000-33.0000 Calcium (test code = Calcium) 9.3400 mg/dL 8.0000-10.3000 Alkaline Phosphatase (test code = Alkaline 42.0000 42.00 00-141.0000 Phosphatase) ALT (SGPT) (test code = ALT (SGPT)) 7.0000 10.0000-47.0 000 AST (SGOT) (test code = AST (SGOT)) 9.0000 11.0000-37.0 000 Bilirubin, Total (test code = Bilirubin, 0.3000 mg/dL 0.0000- 1.6000 Total) Albumin (test code = Albumin) 4.2000 g/dL 3.5000-5.5000 Protein, Total (test code = Protein, 5.9000 g/dL 6.4000-8.10 00 Total) eGFR -Ukrainian (test code = eGFR 18.0000 60.0000- 200.0000 -Ukrainian) eGFR Wqy-Liratct-Sjsivhaa (test code = 15.0000 60.0000-2 00.0000 eGFR Rzp-Anxrnft-Folwzwmm) [id number] 12:21:00 Test Item Value Reference Range Comments WBC (test code = WBC) 4.6000 4.0000-10.0000 Lymphocytes % (test code = Lymphocytes %) 36.6000 % 22.400 0-43.6000 MID% (test code = MID%) 7.7000 % 1.2000-11.2000 Neutrophils % (test code = Neutrophils %) 55.7000 % 48.900 0-69.9000 Lymphocytes (test code = Lymphocytes) 1.6000 1.2000-3.2 000 MID (test code = MID) 0.5000 0.1000-1.1000 Neutrophils (test code = Neutrophils) 2.5000 1.5000-6.7 000 RBC (test code = RBC) 3.3200 3.7000-4.9000 HGB (test code = HGB) 9.4000 g/dL 11.2000-18.0000 HCT (test code = HCT) 30.8000 % 34.0000-44.0000 MCV (test code = MCV) 92.6000 fL 80.0000-94.0000 MCH (test code = MCH) 28.3000 pg 27.0000-34.0000 MCHC (test code = MCHC) 30.6000 g/dL 31.5000-36.0000 RDW (test code = RDW) 17.5000 11.0000-18.0000 PLT (test code = PLT) 227.0000 140.0000-440.0000 MPV (test code = MPV) 8.3000 fL 6.8000-10.6000 [id number] 12:34:00 Test Item Value Reference Range Comments WBC (test code = WBC) 4.7000 4.0000-10.0000 Lymphocytes % (test code = Lymphocytes %) 32.2000 % 22.400 0-43.6000 MID% (test code = MID%) 25.7000 % 1.2000-11.2000 Neutrophils % (test code = Neutrophils %) 42.1000 % 48.900 0-69.9000 Lymphocytes (test code = Lymphocytes) 1.5000 1.2000-3.2 000 MID (test code = MID) 1.3000 0.1000-1.1000 Neutrophils (test code = Neutrophils) 1.9000 1.5000-6.7 000 RBC (test code = RBC) 3.2400 3.7000-4.9000 HGB (test code = HGB) 10.2000 g/dL 11.2000-18.0000 HCT (test code = HCT) 30.1000 % 34.0000-44.0000 MCV (test code = MCV) 93.0000 fL 80.0000-94.0000 MCH (test code = MCH) 31.6000 pg 27.0000-34.0000 MCHC (test code = MCHC) 34.0000 g/dL 31.5000-36.0000 RDW (test code = RDW) 16.2000 11.0000-18.0000 PLT (test code = PLT) 221.0000 140.0000-440.0000 MPV (test code = MPV) 8.9000 fL 6.8000-10.6000 [id number] 12:19:00 Test Item Value Reference Range Comments WBC (test code = WBC) 4.3000 4.0000-10.0000 Lymphocytes % (test code = Lymphocytes %) 32.9000 % 22.400 0-43.6000 MID% (test code = MID%) 21.2000 % 1.2000-11.2000 Neutrophils % (test code = Neutrophils %) 45.9000 % 48.900 0-69.9000 Lymphocytes (test code = Lymphocytes) 1.4000 1.2000-3.2 000 MID (test code = MID) 0.9000 0.1000-1.1000 Neutrophils (test code = Neutrophils) 2.0000 1.5000-6.7 000 RBC (test code = RBC) 3.7700 3.7000-4.9000 HGB (test code = HGB) 10.5000 g/dL 11.2000-18.0000 HCT (test code = HCT) 35.1000 % 34.0000-44.0000 MCV (test code = MCV) 93.2000 fL 80.0000-94.0000 MCH (test code = MCH) 28.0000 pg 27.0000-34.0000 MCHC (test code = MCHC) 30.0000 g/dL 31.5000-36.0000 RDW (test code = RDW) 17.2000 11.0000-18.0000 PLT (test code = PLT) 268.0000 140.0000-440.0000 MPV (test code = MPV) 8.1000 fL 6.8000-10.6000 [id number] 11:13:00 Test Item Value Reference Range Comments Creatinine (test code = Creatinine) 4.0000 mg/dL 0.5000-1.200 0 Cr Clearance (Est) (test code = Cr 22.5500 85.0000-125.0 000 Clearance (Est)) Glucose (test code = Glucose) 121.0000 mg/dL 70.0000-118.0000 BUN (test code = BUN) 27.0000 mg/dL 7.0000-22.0000 Sodium (test code = Sodium) 138.0000 mmol/L 128.0000-145.0000 Potassium (test code = Potassium) 4.3000 mmol/L 3.6000-5.1000 Chloride (test code = Chloride) 106.0000 mmol/L 96.0000-108.0000 CO2 (test code = CO2) 29.0000 mmol/L 18.0000-33.0000 Calcium (test code = Calcium) 8.6400 mg/dL 8.0000-10.3000 Alkaline Phosphatase (test code = Alkaline 46.0000 42.00 00-141.0000 Phosphatase) ALT (SGPT) (test code = ALT (SGPT)) 11.0000 10.0000-47.0 000 AST (SGOT) (test code = AST (SGOT)) 12.0000 11.0000-37.0 000 Bilirubin, Total (test code = Bilirubin, 0.3000 mg/dL 0.0000- 1.6000 Total) Albumin (test code = Albumin) 3.9000 g/dL 3.5000-5.5000 Protein, Total (test code = Protein, 6.0000 g/dL 6.4000-8.10 00 Total) eGFR -Ukrainian (test code = eGFR 18.0000 60.0000- 200.0000 -Ukrainian) eGFR Jnm-Hemabye-Jwvgnzrt (test code = 15.0000 60.0000-2 00.0000 eGFR Xym-Swgwyqd-Moojkjkv) [id number] 11:12:00 Test Item Value Reference Range Comments WBC (test code = WBC) 3.1000 4.0000-10.0000 Lymphocytes % (test code = Lymphocytes %) 19.1000 % 22.400 0-43.6000 MID% (test code = MID%) 22.4000 % 1.2000-11.2000 Neutrophils % (test code = Neutrophils %) 58.5000 % 48.900 0-69.9000 Lymphocytes (test code = Lymphocytes) 0.6000 1.2000-3.2 000 MID (test code = MID) 0.7000 0.1000-1.1000 Neutrophils (test code = Neutrophils) 1.8000 1.5000-6.7 000 RBC (test code = RBC) 3.4900 3.7000-4.9000 HGB (test code = HGB) 9.8000 g/dL 11.2000-18.0000 HCT (test code = HCT) 32.5000 % 34.0000-44.0000 MCV (test code = MCV) 93.3000 fL 80.0000-94.0000 MCH (test code = MCH) 28.3000 pg 27.0000-34.0000 MCHC (test code = MCHC) 30.3000 g/dL 31.5000-36.0000 RDW (test code = RDW) 19.0000 11.0000-18.0000 PLT (test code = PLT) 435.0000 140.0000-440.0000 MPV (test code = MPV) 7.7000 fL 6.8000-10.6000 [id number] 11:26:00 Test Item Value Reference Range Comments WBC (test code = WBC) 4.8000 4.0000-10.0000 Lymphocytes % (test code = Lymphocytes %) 23.7000 % 22.400 0-43.6000 MID% (test code = MID%) 7.6000 % 1.2000-11.1999 Neutrophils % (test code = Neutrophils %) 68.7000 % 48.900 0-69.9000 Lymphocytes (test code = Lymphocytes) 1.1000 1.2000-3.2 000 MID (test code = MID) 0.4000 0.1000-1.1000 Neutrophils (test code = Neutrophils) 3.3000 1.5000-6.7 000 RBC (test code = RBC) 3.1100 3.7000-4.9000 HGB (test code = HGB) 9.2000 g/dL 11.2000-18.0000 HCT (test code = HCT) 29.1000 % 34.0000-44.0000 MCV (test code = MCV) 93.6000 fL 80.0000-94.0000 MCH (test code = MCH) 29.8000 pg 27.0000-34.0000 MCHC (test code = MCHC) 31.8000 g/dL 31.5000-36.0000 RDW (test code = RDW) 17.5000 11.0000-18.0000 PLT (test code = PLT) 291.0000 140.0000-440.0000 MPV (test code = MPV) 8.4000 fL 6.8000-10.6000 [id number] 11:28:00 Test Item Value Reference Range Comments WBC (test code = WBC) 4.9000 4.0000-10.0000 Lymphocytes % (test code = Lymphocytes %) 29.4000 % 22.400 0-43.6000 MID% (test code = MID%) 8.6000 % 1.2000-11.2000 Neutrophils % (test code = Neutrophils %) 62.0000 % 48.900 0-69.9000 Lymphocytes (test code = Lymphocytes) 1.4000 1.2000-3.2 000 MID (test code = MID) 0.5000 0.1000-1.1000 Neutrophils (test code = Neutrophils) 3.0000 1.5000-6.7 000 RBC (test code = RBC) 3.1700 3.7000-4.9000 HGB (test code = HGB) 9.3000 g/dL 11.2000-18.0000 HCT (test code = HCT) 30.2000 % 34.0000-44.0000 MCV (test code = MCV) 95.1000 fL 80.0000-94.0000 MCH (test code = MCH) 29.4000 pg 27.0000-34.0000 MCHC (test code = MCHC) 30.8000 g/dL 31.5000-36.0000 RDW (test code = RDW) 18.2000 11.0000-18.0000 PLT (test code = PLT) 370.0000 140.0000-440.0000 MPV (test code = MPV) 8.2000 fL 6.8000-10.6000 Protein, [id number] 13:25:00 Test Item Value Reference Range Comments Protein, Total (test code = Protein, Total) 6.6000 g/dL 6.00 00-8.5000 Albumin (test code = Albumin) 4.0000 g/dL 2.9000-4.4000 Globulin (test code = Globulin) 2.6000 g/dL 2.2000-3.9000 A/G Ratio (test code = A/G Ratio) 1.6000 0.7000-1.7000 Testosterone (test code = Testosterone) 47.0000 ng/dL 264.0000 -916.0000 Testosterone, Free (test code = 0.8000 pg/mL 6.6000-18.1000 Testosterone, Free) T4, Free (test code = T4, Free) 1.5400 ng/dL 0.8200-1.7700 Ferritin (test code = Ferritin) 790.0000 ng/mL 30.0000-400.0000 T3, Free (test code = T3, Free) 3.3000 pg/mL 2.0000-4.4000 [id number] 13:25:00 Test Item Value Reference Range Comments IGG (test code = IGG) 580.0000 mg/dL 700.0613-5867.0000 IGA (test code = IGA) 233.0000 mg/dL 61.0000-437.0000 IGM (test code = IGM) 22.0000 mg/dL 20.0000-172.0000 Alpha-1 Globulin (test code 0.2000 g/dL 0.0000-0.4000 = Alpha-1 Globulin) Alpha-2 Globulin (test code 0.7000 g/dL 0.4000-1.0000 = Alpha-2 Globulin) Beta Globulin (test code = 1.2000 g/dL 0.7000-1.3000 Beta Globulin) Gamma Globulin (test code = 0.5000 g/dL 0.4000-1.8000 Gamma Globulin) M-Derick (test code = M-Derick) Immunofixation Interp, Serum Comment An apparent normal (test code = Immunofixation immunofixation pattern Interp, Serum) PE Note (test code = PE Comment Protein Note) electrophoresis scan will follow via computer, mail, or marine technician delivery Cofield Free Light Chain (test 60.0000 mg/L 3.3000-19.4000 code = Cofield Free Light Chain) Lambda Free Light Chain 20.9000 mg/L 5.7000-26.3000 (test code = Lambda Free Light Chain) Cofield/Lambda Free Ratio 2.8700 0.2600-1.6500 (test code = Cofield/Lambda Free Ratio) Beta-2 Microglobulin (test 3.8000 mg/L 0.6000-2.4000 code = Beta-2 Microglobulin) [facility] [id number] 13:25:00 Test Item Value Reference Range Comments [facility] Comments (test code = DUP Duplicate procedure [facility] Comments) ordered. TEST: [id number] Protein Electro.,S [id number] 11:52:00 Test Item Value Reference Range Comments WBC (test code = WBC) 5.7000 4.0000-10.0000 Lymphocytes % (test code = Lymphocytes %) 27.9000 % 22.400 0-43.6000 MID% (test code = MID%) 6.6000 % 1.2000-11.1999 Neutrophils % (test code = Neutrophils %) 65.5000 % 48.900 0-69.9000 Lymphocytes (test code = Lymphocytes) 1.5000 1.2000-3.2 000 MID (test code = MID) 0.5000 0.1000-1.1000 Neutrophils (test code = Neutrophils) 3.7000 1.5000-6.7 000 RBC (test code = RBC) 3.4800 3.7000-4.9000 HGB (test code = HGB) 9.8000 g/dL 11.2000-18.0000 HCT (test code = HCT) 31.2000 % 34.0000-44.0000 MCV (test code = MCV) 89.5000 fL 80.0000-94.0000 MCH (test code = MCH) 28.2000 pg 27.0000-34.0000 MCHC (test code = MCHC) 31.6000 g/dL 31.5000-36.0000 RDW (test code = RDW) 16.5000 11.0000-18.0000 PLT (test code = PLT) 355.0000 140.0000-440.0000 MPV (test code = MPV) 8.2000 fL 6.8000-10.6000 [id number] 13:33:00 Test Item Value Reference Range Comments WBC (test code = WBC) 6.8000 4.0000-10.0000 Lymphocytes % (test code = Lymphocytes %) 19.0000 % 22.400 0-43.6000 MID% (test code = MID%) 4.5000 % 1.2000-11.1999 Neutrophils % (test code = Neutrophils %) 76.5000 % 48.900 0-69.9000 Lymphocytes (test code = Lymphocytes) 1.3000 1.2000-3.2 000 MID (test code = MID) 0.3000 0.1000-1.1000 Neutrophils (test code = Neutrophils) 5.2000 1.5000-6.7 000 RBC (test code = RBC) 3.5800 3.7000-4.9000 HGB (test code = HGB) 10.0000 g/dL 11.2000-18.0000 HCT (test code = HCT) 31.9000 % 34.0000-44.0000 MCV (test code = MCV) 88.9000 fL 80.0000-94.0000 MCH (test code = MCH) 27.9000 pg 27.0000-34.0000 MCHC (test code = MCHC) 31.3000 g/dL 31.5000-36.0000 RDW (test code = RDW) 16.6000 11.0000-18.0000 PLT (test code = PLT) 274.0000 140.0000-440.0000 MPV (test code = MPV) 8.4000 fL 6.8000-10.6000 [id number] 13:33:00 Test Item Value Reference Range Comments Creatinine (test code = Creatinine) 4.0000 mg/dL 0.5000-1.200 0 Cr Clearance (Est) (test code = Cr 22.7200 85.0000-125.0 000 Clearance (Est)) Glucose (test code = Glucose) 136.0000 mg/dL 70.0000-118.0000 BUN (test code = BUN) 38.0000 mg/dL 7.0000-22.0000 Sodium (test code = Sodium) 139.0000 mmol/L 128.0000-145.0000 Potassium (test code = Potassium) 4.0000 mmol/L 3.6000-5.1000 Chloride (test code = Chloride) 111.0000 mmol/L 96.0000-108.0000 CO2 (test code = CO2) 25.0000 mmol/L 18.0000-33.0000 Calcium (test code = Calcium) 9.0200 mg/dL 8.0000-10.3000 Alkaline Phosphatase (test code = Alkaline 52.0000 42.00 00-141.0000 Phosphatase) ALT (SGPT) (test code = ALT (SGPT)) 23.0000 10.0000-47.0 000 AST (SGOT) (test code = AST (SGOT)) 13.0000 11.0000-37.0 000 Bilirubin, Total (test code = Bilirubin, 0.3000 mg/dL 0.0000- 1.6000 Total) Albumin (test code = Albumin) 4.3000 g/dL 3.5000-5.5000 Protein, Total (test code = Protein, 6.2000 g/dL 6.4000-8.10 00 Total) eGFR -Ukrainian (test code = eGFR 18.0000 60.0000- 200.0000 -Ukrainian) eGFR Yhr-Pvstaji-Purggzwu (test code = 15.0000 60.0000-2 00.0000 eGFR Ldb-Deqodau-Ygfdvrtt) [id number] 15:14:00 Test Item Value Reference Range Comments Creatinine (test code = Creatinine) 4.4500 mg/dL 0.7600-1.270 0 Cr Clearance (Est) (test code = Cr 20.4200 85.0000-125.0 000 Clearance (Est)) Glucose (test code = Glucose) 86.0000 mg/dL 65.0000-99.0000 BUN (test code = BUN) 43.0000 mg/dL 8.0000-27.0000 eGFR Oge-Mlzjxwb-Mbohypsi (test code = 13.0000 eGFR Dal-Afwlbnw-Xginguff) eGFR -Ukrainian (test code = eGFR 15.0000 -Ukrainian) BUN/Creat Ratio (test code = BUN/Creat 10.0000 10.0000-2 4.0000 Ratio) Sodium (test code = Sodium) 146.0000 mmol/L 134.0000-144.0000 Potassium (test code = Potassium) 4.4000 mmol/L 3.5000-5.2000 Chloride (test code = Chloride) 112.0000 mmol/L 96.0000-106.0000 CO2 (test code = CO2) 16.0000 mmol/L 20.0000-29.0000 Calcium (test code = Calcium) 9.0000 mg/dL 8.6000-10.2000 Protein, Total (test code = Protein, 6.6000 g/dL 6.0000-8.50 00 Total) Albumin (test code = Albumin) 4.4000 g/dL 3.6000-4.8000 Globulin (test code = Globulin) 2.2000 g/dL 1.5000-4.5000 A/G Ratio (test code = A/G Ratio) 2.0000 1.2000-2.2000 Bilirubin, Total (test code = Bilirubin, 0.2000 mg/dL 0.0000- 1.2000 Total) Alkaline Phosphatase (test code = Alkaline 46.0000 39.00 00-117.0000 Phosphatase) AST (SGOT) (test code = AST (SGOT)) 20.0000 0.0000-40.00 00 ALT (SGPT) (test code = ALT (SGPT)) 24.0000 0.0000-44.00 00 Iron, Total (test code = Iron, Total) 78.0000 38.0000-16 9.0000 TIBC (test code = TIBC) 312.0000 250.0000-450.0000 UIBC (test code = UIBC) 234.0000 111.0000-343.0000 % Iron Saturation (test code = % Iron 25.0000 % 15.0000-55 .0000 Saturation) Ferritin (test code = Ferritin) 597.0000 ng/mL 30.0000-400.0000 [id number] 13:20:00 Test Item Value Reference Range Comments WBC (test code = WBC) 6.6000 4.0000-10.0000 Lymphocytes % (test code = Lymphocytes %) 27.3000 % 22.400 0-43.6000 MID% (test code = MID%) 5.9000 % 1.2000-11.2000 Neutrophils % (test code = Neutrophils %) 66.8000 % 48.900 0-69.9000 Lymphocytes (test code = Lymphocytes) 1.8000 1.2000-3.2 000 MID (test code = MID) 0.4000 0.1000-1.1000 Neutrophils (test code = Neutrophils) 4.4000 1.5000-6.7 000 RBC (test code = RBC) 3.0800 3.7000-4.9000 HGB (test code = HGB) 9.2000 g/dL 11.2000-18.0000 HCT (test code = HCT) 28.6000 % 34.0000-44.0000 MCV (test code = MCV) 92.6000 fL 80.0000-94.0000 MCH (test code = MCH) 30.1000 pg 27.0000-34.0000 MCHC (test code = MCHC) 32.4000 g/dL 31.5000-36.0000 RDW (test code = RDW) 17.1000 11.0000-18.0000 PLT (test code = PLT) 202.0000 140.0000-440.0000 MPV (test code = MPV) 8.5000 fL 6.8000-10.6000 [id number] 13:22:00 Test Item Value Reference Range Comments WBC (test code = WBC) 7.3000 4.0000-10.0000 Lymphocytes % (test code = Lymphocytes %) 22.9000 % 22.400 0-43.6000 MID% (test code = MID%) 6.4000 % 1.2000-11.1999 Neutrophils % (test code = Neutrophils %) 70.7000 % 48.900 0-69.9000 Lymphocytes (test code = Lymphocytes) 1.6000 1.2000-3.2 000 MID (test code = MID) 0.6000 0.1000-1.1000 Neutrophils (test code = Neutrophils) 5.1000 1.5000-6.7 000 RBC (test code = RBC) 3.0900 3.7000-4.9000 HGB (test code = HGB) 9.4000 g/dL 11.2000-18.0000 HCT (test code = HCT) 28.4000 % 34.0000-44.0000 MCV (test code = MCV) 92.1000 fL 80.0000-94.0000 MCH (test code = MCH) 30.4000 pg 27.0000-34.0000 MCHC (test code = MCHC) 33.0000 g/dL 31.5000-36.0000 RDW (test code = RDW) 17.2000 11.0000-18.0000 PLT (test code = PLT) 264.0000 140.0000-440.0000 MPV (test code = MPV) 8.3000 fL 6.8000-10.6000 [id number] 13:34:00 Test Item Value Reference Range Comments WBC (test code = WBC) 10.8000 4.0000-10.0000 Lymphocytes % (test code = Lymphocytes %) 14.6000 % 22.400 0-43.6000 MID% (test code = MID%) 4.2000 % 1.1999-11.1999 Neutrophils % (test code = Neutrophils %) 81.2000 % 48.900 0-69.9000 Lymphocytes (test code = Lymphocytes) 1.5000 1.2000-3.2 000 MID (test code = MID) 0.5000 0.1000-1.1000 Neutrophils (test code = Neutrophils) 8.8000 1.5000-6.7 000 RBC (test code = RBC) 3.3400 3.7000-4.9000 HGB (test code = HGB) 9.9000 g/dL 11.2000-18.0000 HCT (test code = HCT) 29.6000 % 34.0000-44.0000 MCV (test code = MCV) 88.5000 fL 80.0000-94.0000 MCH (test code = MCH) 29.6000 pg 27.0000-34.0000 MCHC (test code = MCHC) 33.5000 g/dL 31.5000-36.0000 RDW (test code = RDW) 16.1000 11.0000-18.0000 PLT (test code = PLT) 347.0000 140.0000-440.0000 MPV (test code = MPV) 7.5000 fL 6.8000-10.6000 [id number] 12:42:00 Test Item Value Reference Range Comments WBC (test code = WBC) 8.5000 4.0000-10.0000 Lymphocytes % (test code = Lymphocytes %) 23.7000 % 22.400 0-43.6000 MID% (test code = MID%) 6.4000 % 1.2000-11.2000 Neutrophils % (test code = Neutrophils %) 69.9000 % 48.900 0-69.9000 Lymphocytes (test code = Lymphocytes) 2.0000 1.2000-3.2 000 MID (test code = MID) 0.6000 0.1000-1.1000 Neutrophils (test code = Neutrophils) 5.9000 1.5000-6.7 000 RBC (test code = RBC) 3.5800 3.7000-4.9000 HGB (test code = HGB) 10.6000 g/dL 11.2000-18.0000 HCT (test code = HCT) 31.8000 % 34.0000-44.0000 MCV (test code = MCV) 88.9000 fL 80.0000-94.0000 MCH (test code = MCH) 29.8000 pg 27.0000-34.0000 MCHC (test code = MCHC) 33.5000 g/dL 31.5000-36.0000 RDW (test code = RDW) 16.3000 11.0000-18.0000 PLT (test code = PLT) 349.0000 140.0000-440.0000 MPV (test code = MPV) 7.2000 fL 6.8000-10.6000 [id number] 12:42:00 Test Item Value Reference Range Comments Creatinine (test code = Creatinine) 4.3000 mg/dL 0.5000-1.200 0 Cr Clearance (Est) (test code = Cr 20.8200 85.0000-125.0 000 Clearance (Est)) Glucose (test code = Glucose) 110.0000 mg/dL 70.0000-118.0000 BUN (test code = BUN) 44.0000 mg/dL 7.0000-22.0000 Sodium (test code = Sodium) 141.0000 mmol/L 128.0000-145.0000 Potassium (test code = Potassium) 4.2000 mmol/L 3.6000-5.1000 Chloride (test code = Chloride) 111.0000 mmol/L 96.0000-108.0000 CO2 (test code = CO2) 21.0000 mmol/L 18.0000-33.0000 Calcium (test code = Calcium) 9.7200 mg/dL 8.0000-10.3000 Alkaline Phosphatase (test code = Alkaline 57.0000 42.00 00-141.0000 Phosphatase) ALT (SGPT) (test code = ALT (SGPT)) 19.0000 10.0000-47.0 000 AST (SGOT) (test code = AST (SGOT)) 16.0000 11.0000-37.0 000 Bilirubin, Total (test code = Bilirubin, 0.3000 mg/dL 0.0000- 1.6000 Total) Albumin (test code = Albumin) 4.5000 g/dL 3.5000-5.5000 Protein, Total (test code = Protein, 6.5000 g/dL 6.4000-8.10 00 Total) eGFR -Ukrainian (test code = eGFR 17.0000 60.0000- 200.0000 -Ukrainian) eGFR Ehz-Uxpczsx-Eyzjddvg (test code = 14.0000 60.0000-2 00.0000 eGFR Tvd-Nlokkvv-Jwccmuos) U Protein, [id number] 12:42:00 Test Item Value Reference Range Comments U Protein, 24hr (test code = U Protein, 24hr) 1137.0000 30 .0000-150.0000 U Albumin % (test code = U Albumin %) 72.8000 % U Protein ([id number] 12:42:00 Test Item Value Reference Range Comments U Protein (R) (test code = U Protein (R)) 48.4000 mg/dL U Alpha-1 [id number] 12:42:00 Test Item Value Reference Range Comments U Alpha-1 Globulin (test code 3.7000 % = U Alpha-1 Globulin) U Alpha-2 Globulin (test code 5.7000 % = U Alpha-2 Globulin) U Beta Globulin (test code = U 9.3000 % Beta Globulin) U Gamma Globulin (test code = 8.4000 % U Gamma Globulin) U M-Derick % (test code = U M-Derick %) U JESSICA Interpretation (test Comment An apparent normal code = U JESSICA Interpretation) immunofixation pattern PE Note (test code = PE Note) Comment Protein electrophoresis scan will follow via computer, mail, or marine technician delivery [id number] 15:30:00 Test Item Value Reference Range Comments Creatinine (test code = Creatinine) 3.4400 mg/dL 0.7600-1.270 0 Cr Clearance (Est) (test code = Cr 24.4700 85.0000-125.0 000 Clearance (Est)) Glucose (test code = Glucose) 141.0000 mg/dL 65.0000-99.0000 BUN (test code = BUN) 43.0000 mg/dL 8.0000-27.0000 eGFR Oxu-Jrlrmqf-Dfqpdubc (test code = 18.0000 eGFR Pii-Uthogaj-Jomsndst) eGFR -Ukrainian (test code = eGFR 21.0000 -Ukrainian) BUN/Creat Ratio (test code = BUN/Creat 13.0000 10.0000-2 4.0000 Ratio) Sodium (test code = Sodium) 143.0000 mmol/L 134.0000-144.0000 Potassium (test code = Potassium) 4.8000 mmol/L 3.5000-5.2000 Chloride (test code = Chloride) 110.0000 mmol/L 96.0000-106.0000 CO2 (test code = CO2) 17.0000 mmol/L 20.0000-29.0000 Calcium (test code = Calcium) 9.3000 mg/dL 8.6000-10.2000 Protein, Total (test code = Protein, 6.7000 g/dL 6.0000-8.50 00 Total) Albumin (test code = Albumin) 4.0000 g/dL 2.9000-4.4000 Globulin (test code = Globulin) 2.7000 g/dL 2.2000-3.9000 A/G Ratio (test code = A/G Ratio) 1.5000 0.7000-1.7000 Bilirubin, Total (test code = Bilirubin, 0.2000 mg/dL 0.0000- 1.2000 Total) Alkaline Phosphatase (test code = 73.0000 39.0000-117.00 00 Alkaline Phosphatase) AST (SGOT) (test code = AST (SGOT)) 11.0000 0.0000-40.00 00 ALT (SGPT) (test code = ALT (SGPT)) 14.0000 0.0000-44.00 00 Iron, Total (test code = Iron, Total) 61.0000 38.0000-16 9.0000 TIBC (test code = TIBC) 295.0000 250.0000-450.0000 UIBC (test code = UIBC) 234.0000 111.0000-343.0000 % Iron Saturation (test code = % Iron 21.0000 % 15.0000-55 .0000 Saturation) Vitamin B12 (test code = Vitamin B12) 403.0000 pg/mL 232.0000-1 245.0000 Folate (test code = Folate) 20.0000 ng/mL TSH (test code = TSH) 0.4880 0.4500-4.5000 Troponin 1 (test code = Troponin 1) 0.0100 ng/mL 0.0000-0.040 0 Brain Natriuretic Peptide (test code = 63.7000 pg/mL 0.0000-10 0.0000 Brain Natriuretic Peptide) Ferritin (test code = Ferritin) 348.0000 ng/mL 30.0000-400.0000 [id number] 15:30:00 Test Item Value Reference Range Comments IGG (test code = IGG) 869.0000 mg/dL 700.5097-3450.0000 IGA (test code = IGA) 318.0000 mg/dL 61.0000-437.0000 IGM (test code = IGM) 29.0000 mg/dL 20.0000-172.0000 Alpha-1 Globulin (test code 0.2000 g/dL 0.0000-0.4000 = Alpha-1 Globulin) Alpha-2 Globulin (test code 0.7000 g/dL 0.4000-1.0000 = Alpha-2 Globulin) Beta Globulin (test code = 1.1000 g/dL 0.7000-1.3000 Beta Globulin) Gamma Globulin (test code = 0.8000 g/dL 0.4000-1.8000 Gamma Globulin) M-Derick (test code = M-Derick) Immunofixation Interp, Serum Comment An apparent normal (test code = Immunofixation immunofixation pattern Interp, Serum) PE Note (test code = PE Comment Protein Note) electrophoresis scan will follow via computer, mail, or marine technician delivery Cofield Free Light Chain (test 90.9000 mg/L 3.3000-19.4000 code = Cofield Free Light Chain) Lambda Free Light Chain 28.8000 mg/L 5.7000-26.3000 (test code = Lambda Free Light Chain) Cofield/Lambda Free Ratio 3.1600 0.2600-1.6500 (test code = Cofield/Lambda Free Ratio) Beta-2 Microglobulin (test 3.5000 mg/L 0.6000-2.4000 code = Beta-2 Microglobulin) [id number] 15:30:00 Test Item Value Reference Range Comments PSA (test code = PSA) 0.1000 ng/mL 0.0000-4.0000 [facility] [id number] 15:30:00 Test Item Value Reference Range Comments [facility] Comments (test code = DUP Duplicate procedure [facility] Comments) ordered. TEST: [id number] Protein Electro.,S [id number] 13:09:00 Test Item Value Reference Range Comments WBC (test code = WBC) 8.2000 4.0000-10.0000 Lymphocytes % (test code = Lymphocytes %) 25.1000 % 22.400 0-43.6000 MID% (test code = MID%) 5.8000 % 1.2000-11.2000 Neutrophils % (test code = Neutrophils %) 69.1000 % 48.900 0-69.9000 Lymphocytes (test code = Lymphocytes) 2.0000 1.2000-3.2 000 MID (test code = MID) 0.5000 0.1000-1.1000 Neutrophils (test code = Neutrophils) 5.7000 1.5000-6.7 000 RBC (test code = RBC) 3.5800 3.7000-4.9000 HGB (test code = HGB) 10.7000 g/dL 11.2000-18.0000 HCT (test code = HCT) 32.0000 % 34.0000-44.0000 MCV (test code = MCV) 89.4000 fL 80.0000-94.0000 MCH (test code = MCH) 30.0000 pg 27.0000-34.0000 MCHC (test code = MCHC) 33.5000 g/dL 31.5000-36.0000 RDW (test code = RDW) 15.7000 11.0000-18.0000 PLT (test code = PLT) 370.0000 140.0000-440.0000 MPV (test code = MPV) 8.2000 fL 6.8000-10.6000 [id number] 10:48:00 Test Item Value Reference Range Comments Creatinine (test code = Creatinine) 3.5500 mg/dL 0.7600-1.270 0 Cr Clearance (Est) (test code = Cr 25.5000 85.0000-125.0 000 Clearance (Est)) Glucose (test code = Glucose) 115.0000 mg/dL 65.0000-99.0000 BUN (test code = BUN) 26.0000 mg/dL 8.0000-27.0000 eGFR Gfu-Unrahca-Lqmqyqhv (test code = 17.0000 eGFR Sle-Wyyrkmj-Wensnjao) eGFR -Ukrainian (test code = eGFR 20.0000 -Ukrainian) BUN/Creat Ratio (test code = BUN/Creat 7.0000 10.0000-2 4.0000 Ratio) Sodium (test code = Sodium) 143.0000 mmol/L 134.0000-144.0000 Potassium (test code = Potassium) 4.8000 mmol/L 3.5000-5.2000 Chloride (test code = Chloride) 105.0000 mmol/L 96.0000-106.0000 CO2 (test code = CO2) 24.0000 mmol/L 20.0000-29.0000 Calcium (test code = Calcium) 9.6000 mg/dL 8.6000-10.2000 Protein, Total (test code = Protein, 7.4000 g/dL 6.0000-8.50 00 Total) Albumin (test code = Albumin) 4.5000 g/dL 3.6000-4.8000 Globulin (test code = Globulin) 2.9000 g/dL 1.5000-4.5000 A/G Ratio (test code = A/G Ratio) 1.6000 1.2000-2.2000 Bilirubin, Total (test code = Bilirubin, 0.2000 mg/dL 0.0000- 1.2000 Total) Alkaline Phosphatase (test code = 82.0000 39.0000-117.00 00 Alkaline Phosphatase) AST (SGOT) (test code = AST (SGOT)) 18.0000 0.0000-40.00 00 ALT (SGPT) (test code = ALT (SGPT)) 15.0000 0.0000-44.00 00 Iron, Total (test code = Iron, Total) 56.0000 38.0000-16 9.0000 TIBC (test code = TIBC) 269.0000 250.0000-450.0000 UIBC (test code = UIBC) 213.0000 111.0000-343.0000 % Iron Saturation (test code = % Iron 21.0000 % 15.0000-55 .0000 Saturation) Vitamin B12 (test code = Vitamin B12) 726.0000 pg/mL 232.0000-1 245.0000 Folate (test code = Folate) 16.3000 ng/mL Ferritin (test code = Ferritin) 321.0000 ng/mL 30.0000-400.0000 [id number] 10:48:00 Test Item Value Reference Range Comments PSA (test code = PSA) 0.1000 ng/mL 0.0000-4.0000 [id number] 10:11:00 Test Item Value Reference Range Comments WBC (test code = WBC) 4.1000 4.0000-10.0000 Lymphocytes % (test code = Lymphocytes %) 44.1000 % 22.400 0-43.6000 MID% (test code = MID%) 8.0000 % 1.2000-11.2000 Neutrophils % (test code = Neutrophils %) 47.9000 % 48.900 0-69.9000 Lymphocytes (test code = Lymphocytes) 1.8000 1.2000-3.2 000 MID (test code = MID) 0.3000 0.1000-1.1000 Neutrophils (test code = Neutrophils) 2.0000 1.5000-6.7 000 RBC (test code = RBC) 3.7200 3.7000-4.9000 HGB (test code = HGB) 10.7000 g/dL 11.2000-18.0000 HCT (test code = HCT) 31.9000 % 34.0000-44.0000 MCV (test code = MCV) 85.7000 fL 80.0000-94.0000 MCH (test code = MCH) 28.9000 pg 27.0000-34.0000 MCHC (test code = MCHC) 33.7000 g/dL 31.5000-36.0000 RDW (test code = RDW) 15.8000 11.0000-18.0000 PLT (test code = PLT) 210.0000 140.0000-440.0000 MPV (test code = MPV) 9.0000 fL 6.8000-10.6000 [id number] 13:44:00 Test Item Value Reference Range Comments Creatinine (test code = Creatinine) 3.2500 mg/dL 0.7600-1.270 0 Cr Clearance (Est) (test code = Cr 30.2400 85.0000-125.0 000 Clearance (Est)) Glucose (test code = Glucose) 98.0000 mg/dL 65.0000-99.0000 BUN (test code = BUN) 34.0000 mg/dL 8.0000-27.0000 eGFR Udk-Laajhak-Tjvmbres (test code = 19.0000 eGFR Rkp-Mlhzltq-Ckdfidzr) eGFR -Ukrainian (test code = eGFR 22.0000 -Ukrainian) BUN/Creat Ratio (test code = BUN/Creat 10.0000 10.0000-2 4.0000 Ratio) Sodium (test code = Sodium) 141.0000 mmol/L 134.0000-144.0000 Potassium (test code = Potassium) 5.0000 mmol/L 3.5000-5.2000 Chloride (test code = Chloride) 102.0000 mmol/L 96.0000-106.0000 CO2 (test code = CO2) 24.0000 mmol/L 18.0000-29.0000 Calcium (test code = Calcium) 9.6000 mg/dL 8.6000-10.2000 Protein, Total (test code = Protein, 7.2000 g/dL 6.0000-8.50 00 Total) Albumin (test code = Albumin) 4.9000 g/dL 3.6000-4.8000 Globulin (test code = Globulin) 2.3000 g/dL 1.5000-4.5000 A/G Ratio (test code = A/G Ratio) 2.1000 1.2000-2.2000 Bilirubin, Total (test code = Bilirubin, 0.2000 mg/dL 0.0000- 1.2000 Total) Alkaline Phosphatase (test code = 81.0000 39.0000-117.00 00 Alkaline Phosphatase) AST (SGOT) (test code = AST (SGOT)) 15.0000 0.0000-40.00 00 ALT (SGPT) (test code = ALT (SGPT)) 15.0000 0.0000-44.00 00 Iron, Total (test code = Iron, Total) 56.0000 38.0000-16 9.0000 TIBC (test code = TIBC) 302.0000 250.0000-450.0000 UIBC (test code = UIBC) 246.0000 111.0000-343.0000 % Iron Saturation (test code = % Iron 19.0000 % 15.0000-55 .0000 Saturation) Vitamin B12 (test code = Vitamin B12) 815.0000 pg/mL 232.0000-1 245.0000 Folate (test code = Folate) 13.1000 ng/mL Ferritin (test code = Ferritin) 306.0000 ng/mL 30.0000-400.0000 [id number] 13:44:00 Test Item Value Reference Range Comments PSA (test code = PSA) 0.1000 ng/mL 0.0000-4.0000 [id number] 09:28:00 Test Item Value Reference Range Comments WBC (test code = WBC) 4.5000 4.0000-10.0000 Lymphocytes % (test code = Lymphocytes %) 36.3000 % 22.400 0-43.6000 MID% (test code = MID%) 6.3000 % 1.2000-11.2000 Neutrophils % (test code = Neutrophils %) 57.4000 % 48.900 0-69.9000 Lymphocytes (test code = Lymphocytes) 1.6000 1.2000-3.2 000 MID (test code = MID) 0.3000 0.1000-1.1000 Neutrophils (test code = Neutrophils) 2.6000 1.5000-6.7 000 RBC (test code = RBC) 3.9700 3.7000-4.9000 HGB (test code = HGB) 10.8000 g/dL 11.2000-18.0000 HCT (test code = HCT) 34.0000 % 34.0000-44.0000 MCV (test code = MCV) 85.6000 fL 80.0000-94.0000 MCH (test code = MCH) 27.3000 pg 27.0000-34.0000 MCHC (test code = MCHC) 31.9000 g/dL 31.5000-36.0000 RDW (test code = RDW) 15.4000 11.0000-18.0000 PLT (test code = PLT) 280.0000 140.0000-440.0000 MPV (test code = MPV) 7.5000 fL 6.8000-10.6000 Gamma [id number] 14:42:00 Test Item Value Reference Range Comments Gamma Globulin (test code = 0.8000 g/dL 0.4000-1.8000 Gamma Globulin) IGA (test code = IGA) 313.0000 mg/dL 61.0000-437.0000 IGG (test code = IGG) 912.0000 mg/dL 700.3154-5175.0000 IGM (test code = IGM) 33.0000 mg/dL 20.0000-172.0000 Alpha-1 Globulin (test code 0.2000 g/dL 0.0000-0.4000 = Alpha-1 Globulin) Alpha-2 Globulin (test code 0.6000 g/dL 0.4000-1.0000 = Alpha-2 Globulin) Beta Globulin (test code = 1.1000 g/dL 0.7000-1.3000 Beta Globulin) Immunofixation Interp, Serum Comment An apparent normal (test code = Immunofixation immunofixation pattern Interp, Serum) Cofield Free Light Chain (test 71.1000 mg/L 3.3000-19.4000 code = Cofield Free Light Chain) Cofield/Lambda Free Ratio 2.4700 0.2600-1.6500 (test code = Cofield/Lambda Free Ratio) Lambda Free Light Chain 28.8000 mg/L 5.7000-26.3000 (test code = Lambda Free Light Chain) M-Derick (test code = M-Derick) PE Note (test code = PE Comment Protein Note) electrophoresis scan will follow via computer, mail, or marine technician delivery Protein, [id number] 14:42:00 Test Item Value Reference Range Comments Protein, Total (test code = Protein, 6.9000 g/dL 6.0000-8.50 00 Total) Albumin (test code = Albumin) 4.6000 g/dL 3.6000-4.8000 Globulin (test code = Globulin) 2.3000 g/dL 1.5000-4.5000 A/G Ratio (test code = A/G Ratio) 2.0000 1.2000-2.2000 Creatinine (test code = Creatinine) 2.6400 mg/dL 0.7600-1.270 0 Cr Clearance (Est) (test code = Cr 36.0000 85.0000-125.0 000 Clearance (Est)) Glucose (test code = Glucose) 88.0000 mg/dL 65.0000-99.0000 BUN (test code = BUN) 28.0000 mg/dL 8.0000-27.0000 eGFR Dgo-Kgdhiew-Aegdhnak (test code = 25.0000 eGFR Nur-Enjentt-Emxnejou) eGFR -Ukrainian (test code = eGFR 29.0000 -Ukrainian) BUN/Creat Ratio (test code = BUN/Creat 11.0000 10.0000-2 4.0000 Ratio) Sodium (test code = Sodium) 140.0000 mmol/L 134.0000-144.0000 Potassium (test code = Potassium) 4.4000 mmol/L 3.5000-5.2000 Chloride (test code = Chloride) 100.0000 mmol/L 96.0000-106.0000 CO2 (test code = CO2) 24.0000 mmol/L 18.0000-29.0000 Calcium (test code = Calcium) 9.5000 mg/dL 8.6000-10.2000 Bilirubin, Total (test code = Bilirubin, 0.2000 mg/dL 0.0000- 1.2000 Total) Alkaline Phosphatase (test code = Alkaline 79.0000 39.00 00-117.0000 Phosphatase) AST (SGOT) (test code = AST (SGOT)) 15.0000 0.0000-40.00 00 ALT (SGPT) (test code = ALT (SGPT)) 11.0000 0.0000-44.00 00 [id number] 12:52:00 Test Item Value Reference Range Comments WBC (test code = WBC) 5.7000 4.0000-10.0000 Lymphocytes % (test code = Lymphocytes %) 33.4000 % 22.400 0-43.6000 MID% (test code = MID%) 7.2000 % 1.2000-11.2000 Neutrophils % (test code = Neutrophils %) 59.4000 % 48.900 0-69.9000 Lymphocytes (test code = Lymphocytes) 1.9000 1.2000-3.2 000 MID (test code = MID) 0.5000 0.1000-1.1000 Neutrophils (test code = Neutrophils) 3.3000 1.5000-6.7 000 RBC (test code = RBC) 3.9400 3.7000-4.9000 HGB (test code = HGB) 11.5000 g/dL 11.2000-18.0000 HCT (test code = HCT) 33.9000 % 34.0000-44.0000 MCV (test code = MCV) 85.9000 fL 80.0000-94.0000 MCH (test code = MCH) 29.2000 pg 27.0000-34.0000 MCHC (test code = MCHC) 34.0000 g/dL 31.5000-36.0000 RDW (test code = RDW) 15.5000 11.0000-18.0000 PLT (test code = PLT) 240.0000 140.0000-440.0000 MPV (test code = MPV) 7.5000 fL 6.8000-10.6000 [id number] 09:01:00 Test Item Value Reference Range Comments WBC (test code = WBC) 6.1000 4.0000-10.0000 Lymphocytes % (test code = Lymphocytes %) 30.6000 % 22.400 0-43.6000 MID% (test code = MID%) 7.2000 % 1.2000-11.2000 Neutrophils % (test code = Neutrophils %) 62.2000 % 48.900 0-69.9000 Lymphocytes (test code = Lymphocytes) 1.8000 1.2000-3.2 000 MID (test code = MID) 0.5000 0.1000-1.1000 Neutrophils (test code = Neutrophils) 3.8000 1.5000-6.7 000 RBC (test code = RBC) 4.0000 3.7000-4.9000 HGB (test code = HGB) 11.8000 g/dL 11.2000-18.0000 HCT (test code = HCT) 35.0000 % 34.0000-44.0000 MCV (test code = MCV) 87.6000 fL 80.0000-94.0000 MCH (test code = MCH) 29.5000 pg 27.0000-34.0000 MCHC (test code = MCHC) 33.7000 g/dL 31.5000-36.0000 RDW (test code = RDW) 15.2000 11.0000-18.0000 PLT (test code = PLT) 281.0000 140.0000-440.0000 MPV (test code = MPV) 7.7000 fL 6.8000-10.6000 Gamma [id number] 13:53:00 Test Item Value Reference Range Comments Gamma Globulin (test code = 0.9000 g/dL 0.4000-1.8000 Gamma Globulin) IGA (test code = IGA) 377.0000 mg/dL 61.0000-437.0000 IGG (test code = IGG) 855.0000 mg/dL 700.7684-2221.0000 IGM (test code = IGM) 39.0000 mg/dL 20.0000-172.0000 Alpha-1 Globulin (test code 0.2000 g/dL 0.0000-0.4000 = Alpha-1 Globulin) Alpha-2 Globulin (test code 0.8000 g/dL 0.4000-1.0000 = Alpha-2 Globulin) Beta Globulin (test code = 1.3000 g/dL 0.7000-1.3000 Beta Globulin) Immunofixation Interp, Serum Comment An apparent normal (test code = Immunofixation immunofixation pattern Interp, Serum) Cofield Free Light Chain (test 72.7200 mg/L 3.3000-19.4000 code = Cofield Free Light Chain) Cofield/Lambda Free Ratio 2.8200 0.2600-1.6500 (test code = Cofield/Lambda Free Ratio) Lambda Free Light Chain 25.7600 mg/L 5.7100-26.3000 (test code = Lambda Free Light Chain) M-Derick (test code = M-Derick) PE Note (test code = PE Comment Protein Note) electrophoresis scan will follow via computer, mail, or marine technician delivery Protein, [id number] 13:53:00 Test Item Value Reference Range Comments Protein, Total (test code = Protein, Total) 7.3000 g/dL 6.00 00-8.5000 Albumin (test code = Albumin) 4.1000 g/dL 2.9000-4.4000 Globulin (test code = Globulin) 3.2000 g/dL 2.2000-3.9000 A/G Ratio (test code = A/G Ratio) 1.3000 0.7000-1.7000 Iron, Total (test code = Iron, Total) 83.0000 38.0000-16 9.0000 TIBC (test code = TIBC) 298.0000 250.0000-450.0000 UIBC (test code = UIBC) 215.0000 111.0000-343.0000 % Iron Saturation (test code = % Iron 28.0000 % 15.0000-55 .0000 Saturation) Vitamin B12 (test code = Vitamin B12) 472.0000 pg/mL 211.0000-9 46.0000 Folate (test code = Folate) 3.2000 ng/mL Ferritin (test code = Ferritin) 481.0000 ng/mL 30.0000-400.0000 [id number] 13:53:00 Test Item Value Reference Range Comments PSA (test code = PSA) 0.1000 ng/mL 0.0000-4.0000 [id number] 09:26:00 Test Item Value Reference Range Comments WBC (test code = WBC) 4.8000 4.0000-10.0000 Lymphocytes % (test code = Lymphocytes %) 29.0000 % 22.400 0-43.6000 MID% (test code = MID%) 7.4000 % 1.2000-11.2000 Neutrophils % (test code = Neutrophils %) 63.6000 % 48.900 0-69.9000 Lymphocytes (test code = Lymphocytes) 1.4000 1.2000-3.2 000 MID (test code = MID) 0.3000 0.1000-1.1000 Neutrophils (test code = Neutrophils) 3.1000 1.5000-6.7 000 RBC (test code = RBC) 4.1500 3.7000-4.9000 HGB (test code = HGB) 12.2000 g/dL 11.2000-14.4000 HCT (test code = HCT) 36.7000 % 34.0000-44.0000 MCV (test code = MCV) 88.3000 fL 80.0000-94.0000 MCH (test code = MCH) 29.4000 pg 27.0000-34.0000 MCHC (test code = MCHC) 33.3000 g/dL 31.5000-36.0000 RDW (test code = RDW) 15.5000 11.0000-18.0000 PLT (test code = PLT) 283.0000 140.0000-440.0000 MPV (test code = MPV) 7.5000 fL 6.8000-10.6000 [id number] 09:26:00 Test Item Value Reference Range Comments Creatinine (test code = Creatinine) 2.7000 mg/dL 0.5000-1.200 0 Cr Clearance (Est) (test code = Cr 36.2800 85.0000-125.0 000 Clearance (Est)) Glucose (test code = Glucose) 106.0000 mg/dL 70.0000-118.0000 BUN (test code = BUN) 25.0000 mg/dL 7.0000-22.0000 Sodium (test code = Sodium) 138.0000 mmol/L 128.0000-145.0000 Potassium (test code = Potassium) 4.2000 mmol/L 3.6000-5.1000 Chloride (test code = Chloride) 109.0000 mmol/L 96.0000-108.0000 CO2 (test code = CO2) 23.0000 mmol/L 18.0000-33.0000 Calcium (test code = Calcium) 10.8800 mg/dL 8.0000-10.3000 Alkaline Phosphatase (test code = Alkaline 87.0000 42.00 00-141.0000 Phosphatase) ALT (SGPT) (test code = ALT (SGPT)) 34.0000 10.0000-47.0 000 AST (SGOT) (test code = AST (SGOT)) 25.0000 11.0000-37.0 000 Bilirubin, Total (test code = Bilirubin, 0.3000 mg/dL 0.0000- 1.6000 Total) Albumin (test code = Albumin) 5.0000 g/dL 3.5000-5.5000 Protein, Total (test code = Protein, 7.9000 g/dL 6.4000-8.10 00 Total) Assessments Condition Name Status Diagnosis Date Treating Clinici an Major depressive disorder, recurrent, Active unspecified Generalized anxiety disorder Active Post-traumatic stress disorder, unspecified Active Primary insomnia Active Major depressive disorder, recurrent, Active unspecified Generalized anxiety disorder Active Post-traumatic stress disorder, unspecified Active Agoraphobia with panic disorder Active Attention-deficit hyperactivity disorder, Active combined type Generalized anxiety disorder Active Agoraphobia with panic disorder Active Major depressive disorder, recurrent, Active unspecified Attention-deficit hyperactivity disorder, Active combined type Agoraphobia with panic disorder Active Post-traumatic stress disorder, unspecified Active Generalized anxiety disorder Active Encntr for general adult medical exam w/o Active abnormal findings Major depressive disorder, single episode, Active unspecified Epilepsy, unsp, not intractable, without Active status epilepticus Generalized anxiety disorder Active Attention-deficit hyperactivity disorder, Active combined type Major depressive disorder, recurrent, Active unspecified Generalized anxiety disorder Active Agoraphobia with panic disorder Active Attention-deficit hyperactivity disorder, Active combined type Major depressive disorder, single episode, Active unspecified Generalized anxiety disorder Active Agoraphobia with panic disorder Active Major depressive disorder, recurrent, Active unspecified Generalized anxiety disorder Active Post-traumatic stress disorder, unspecified Active Agoraphobia with panic disorder Active Attention-deficit hyperactivity disorder, Active combined type Major depressive disorder, recurrent, Active unspecified Generalized anxiety disorder Active Agoraphobia with panic disorder Active Attention-deficit hyperactivity disorder, Active combined type Major depressive disorder, recurrent, Active unspecified Generalized anxiety disorder Active Agoraphobia with panic disorder Active Attention-deficit hyperactivity disorder, Active combined type Generalized anxiety disorder Active Agoraphobia with panic disorder Active Major depressive disorder, recurrent, Active unspecified Attention-deficit hyperactivity disorder, Active combined type Major depressive disorder, recurrent, Active unspecified Generalized anxiety disorder Active Agoraphobia with panic disorder Active Attention-deficit hyperactivity disorder, Active combined type Major depressive disorder, recurrent, Active unspecified Generalized anxiety disorder Active Agoraphobia with panic disorder Active Attention-deficit hyperactivity disorder, Active combined type Major depressive disorder, recurrent, Active unspecified Generalized anxiety disorder Active Agoraphobia with panic disorder Active Generalized anxiety disorder Active Agoraphobia with panic disorder Active Attention-deficit hyperactivity disorder, Active combined type Major depressive disorder, single episode, Active unspecified Attention-deficit hyperactivity disorder, Active combined type Major depressive disorder, recurrent, Active unspecified Generalized anxiety disorder Active Agoraphobia with panic disorder Active Attention-deficit hyperactivity disorder, Active combined type Major depressive disorder, recurrent, Active unspecified Generalized anxiety disorder Active Agoraphobia with panic disorder Active Attention-deficit hyperactivity disorder, Active combined type Major depressive disorder, recurrent, Active unspecified Generalized anxiety disorder Active Agoraphobia with panic disorder Active Attention-deficit hyperactivity disorder, Active combined type Agoraphobia with panic disorder Active Post-traumatic stress disorder, unspecified Active Primary insomnia Active Generalized anxiety disorder Active Agoraphobia with panic disorder Active Attention-deficit hyperactivity disorder, Active combined type Major depressive disorder, recurrent, Active unspecified Attention-deficit hyperactivity disorder, Active combined type Generalized anxiety disorder Active Agoraphobia with panic disorder Active Post-traumatic stress disorder, unspecified Active Attention-deficit hyperactivity disorder, Active combined type Generalized anxiety disorder Active Post-traumatic stress disorder, unspecified Active Primary insomnia Active Attention-deficit hyperactivity disorder, Active combined type Generalized anxiety disorder Active Agoraphobia with panic disorder Active Primary insomnia Active Attention-deficit hyperactivity disorder, Active combined type Generalized anxiety disorder Active Agoraphobia with panic disorder Active Post-traumatic stress disorder, unspecified Active Attention-deficit hyperactivity disorder, Active combined type Generalized anxiety disorder Active Agoraphobia with panic disorder Active Post-traumatic stress disorder, unspecified Active Attention-deficit hyperactivity disorder, Active combined type Generalized anxiety disorder Active Agoraphobia with panic disorder Active Post-traumatic stress disorder, unspecified Active Attention-deficit hyperactivity disorder, Active combined type Generalized anxiety disorder Active Agoraphobia with panic disorder Active Primary insomnia Active Attention-deficit hyperactivity disorder, Active combined type Generalized anxiety disorder Active Agoraphobia with panic disorder Active Primary insomnia Active Attention-deficit hyperactivity disorder, Active combined type Generalized anxiety disorder Active Agoraphobia with panic disorder Active Primary insomnia Active Generalized anxiety disorder Active Agoraphobia with panic disorder Active Post-traumatic stress disorder, unspecified Active Primary insomnia Active Attention-deficit hyperactivity disorder, Active combined type Generalized anxiety disorder Active Agoraphobia with panic disorder Active Primary insomnia Active Generalized anxiety disorder Active Agoraphobia with panic disorder Active Post-traumatic stress disorder, unspecified Active Primary insomnia Active Generalized anxiety disorder Active Agoraphobia with panic disorder Active Post-traumatic stress disorder, unspecified Active Primary insomnia Active Post-traumatic stress disorder, unspecified Active Agoraphobia with panic disorder Active Primary insomnia Active Generalized anxiety disorder Active Agoraphobia with panic disorder Active Primary insomnia Active Generalized anxiety disorder Active Post-traumatic stress disorder, unspecified Active Generalized anxiety disorder Active Agoraphobia with panic disorder Active Post-traumatic stress disorder, unspecified Active Primary insomnia Active Generalized anxiety disorder Active Agoraphobia with panic disorder Active Post-traumatic stress disorder, unspecified Active Primary insomnia Active Post-traumatic stress disorder, unspecified Active Agoraphobia with panic disorder Active Primary insomnia Active Generalized anxiety disorder Active Plasma cell dyscrasia Unknown Plasma cell dyscrasia Unknown Chronic kidney disease, stage 4 (severe) Unknown ([facility] Encounters Start End Encounter Admission Attending Care Care Encounter Date/Time Date/Time Type Type Clinicians Facility Department ID 2020-05-28 2020-05-28 [facility] [id number] 00:00:00 00:00:00 Dr. Ren adkins [facility] Oncology Oncology [facility] 2020-05-21 2020-05-21 Outpatient [facility] n [id number] 00:00:00 00:00:00 jed [facility] Oncology Oncology [facility] 2020-05-14 2020-05-14 Outpatient Marycruz Palacios rn [id number] 00:00[facility]00 [facility] 2020-04-23 2020-04-23 Outpatient Marycruz Palacios rn [id number] 00:00:00 00:00:00 [facility] 2020-04-19 2020-04-19 Outpatient Marycruz Muñozgenna adkins [id number] 00:00:00 00:00:00 [facility] Oncology Oncology [facility] 2020-04-09 2020-04-09 Outpatient Marycruz Palacios rn [id number] 00:00:00 00:00:00 [facility] Oncology Oncology [facility] 2020-04-08 2020-04-08 Outpatient Marycruz Tonigenna adkins [id number] 00:00:00 00:00:00 [facility] Oncology Oncology [facility] 2020-04-05 2020-04-05 Outpatient Leobardo [facility] F [id number] 10:00:00 10:00:00 Shai Mejias???s [id number] and [id number] Multispecial [id number] ty Clini 2020-03-26 2020-03-26 Outpatient Marycruz Palacios rn [id number] 00:00:00 00:00:00 [facility] Oncology Oncology [facility] 2020-03-12 2020-03-12 Outpatient Marycruz Palacios rn [id number] 00:00:00 00:00:00 [facility] Oncology Oncology [facility] 2020-02-27 2020-02-27 Philip Palacios [facility] [id number] 00:00:00 00:00:00 Dr. Mcclure [facility] Oncology Oncology [facility] 2020-02-26 2020-02-26 Outpatient Marycruz adkins [id number] 00:00:00 00:00:00 [facility] Oncology Oncology [facility] 2020-02-13 2020-02-13 Outpatient Marycruz Palacios rn [id number] 00:00:00 00:00:00 [facility] Oncology Oncology [facility] 2020-02-02 2020-02-02 Outpatient Leobardo [facility] 9 [id number] 10:00:00 10:00:00 Shai Mejias [id number] s [id number] and [id number] Multispecial ty Clinic, 2020-01-30 2020-01-30 Outpatient Marycruz Palacios rn [id number] 00:00:00 00:00:00 [facility] Oncology Oncology [facility] 2020-01-29 2020-01-29 Outpatient Marycruz adkins [id number] 00:00:00 00:00:00 [facility] Oncology Oncology [facility] 2020-01-16 2020-01-16 Outpatient Marycruz Palacios rn [id number] 00:00:00 00:00:00 [facility] Oncology Oncology [facility] 2020-01-05 2020-01-05 Outpatient Marycruz adkins [id number] 00:00:00 00:00:00 [facility] Oncology Oncology [facility] 2020-01-02 2020-01-02 Outpatient Marycurz Palacios rn [id number] 00:00:00 00:00:00 [facility] Oncology Oncology [facility] 2019-12-31 2019-12-31 [facility] [id number] 11:40:00 11:40:00 Shai Mejias [id number] s [id number] and [id number] Multispecial ty Clinic, 2019-12-19 2019-12-19 Outpatient Marycruz Palacios rn [id number] 00:00:00 00:00:00 [facility] Oncology Oncology [facility] 2019-12-05 2019-12-05 Philip Daigle [facility] [id number] 00:00:00 00:00:00 Genoveva [facility] Oncology Oncology [facility] 2019-12-03 2019-12-03 Outpatient Leobardo [facility] 3 [id number] 12:00:00 12:00:00 Shai Mejias [id number] s [id number] and [id number] Multispecial ty Clinic, 2019-12-02 2019-12-02 Outpatient Marycruz Palacios rn [id number] 00:00:00 00:00:00 [facility] Oncology Oncology [facility] 2019-11-21 2019-11-21 Outpatient Marycruz adkins [id number] 00:00:00 00:00:00 [facility] Oncology Oncology [facility] 2019-11-18 2019-11-18 Outpatient Marycruz adkins [id number] 00:00:00 00:00:00 [facility] Oncology Oncology [facility] 2019-11-17 2019-11-17 Outpatient Marycruz adkins [id number] 00:00:00 00:00:00 [facility] Oncology Oncology [facility] 2019-11-06 2019-11-06 Outpatient [facility] [id number] 10:45:35 10:45:35 YASMIN 2019-11-04 2019-11-04 Marycruz Mart 2 [id number] 00:00:00 00:00:00 Paulette [facility] Oncology Oncology [facility] 2019-11-03 2019-11-03 Outpatient Marycruz Joel n [id number] 00:00:00 00:00:00 [facility] Oncology Oncology [facility] 2019-10-31 2019-10-31 Outpatient Bird [facility] [id number] 15:30:00 15:30:00 Divina Children???s [id number] and [id number] [facility] [id number] Clini 2019-10-27 2019-10-27 Outpatient JOANA QUESADA [facility] [id number] 14:12:58 14:12:58 PRATIBHA HOLM 2019-10-27 2019-10-27 Outpatient [facility] [id number] 13:08:07 13:08:07 2019-10-27 2019-10-27 Outpatient [facility] [id number] 00:00:00 00:00:00 2019-10-27 2019-10-27 Outpatient Marycruz Joel n [id number] 00:00:00 00:00:00 [facility] Oncology Oncology [facility] 2019-10-21 2019-10-21 Outpatient Marycruz Joel n [id number] 00:00:00 00:00:00 [facility] Oncology Oncology [facility] 2019-10-07 2019-10-07 Outpatient Marycruz Joel n [id number] 00:00:00 00:00:00 [facility] Oncology Oncology [facility] 2019-10-06 2019-10-06 Outpatient Marycruz Joel n [id number] 00:00:00 00:00:00 [facility] Oncology Oncology [facility] 2019-10-02 2019-10-02 Outpatient Marycruz Joel n [id number] 00:00:00 00:00:00 [facility] Oncology Oncology [facility] 2019-09-25 2019-09-25 Outpatient [facility] [id number] 00:00:00 00:00:00 2019-09-25 2019-09-25 Outpatient DU DU [id number] 00:00:00 00:00:00 2019-09-23 2019-09-23 Philip Palacios [facility] [id number] 00:00:00 00:00:00 Dr. Ren adkins [facility] Medical Oncology [facility] 2019-09-12 2019-09-12 Outpatient [facility] DU [id number] 00:00:00 00:00:00 2019-09-09 2019-09-09 Outpatient Marycruz Palacios rn [id number] 00:00:00 00:00:00 Ren [facility] Medical Oncology Oncology [facility] 2019-09-08 2019-09-08 Outpatient Marycruz adkins [id number] 00:00:00 00:00:00 [facility] Oncology [facility] 2019-08-26 2019-08-26 Outpatient DUHS DU [id number] 00:00:00 00:00:00 2019-08-26 2019-08-26 Marycruz Gonzalez 2 [id number] 00:00:00 00:00:00 Alia Gu [facility] Medical Oncology On[facility] 2019-08-20 2019-08-20 Outpatient Leobardo [facility] F [id number] 09:50:00 09:50:00 Shai Children [id number] s [id number] and [id number] [facility] 2019-08-12 2019-08-12 Outpatient Marycruz Palacios rn [id number] 00:00:00 00:00:00 Ren [facility] Medical Oncology [facility] 2019-07-29 2019-07-29 Outpatient Marycruz Palacios rn [id number] 00:00:00 00:00:00 Ren [facility] Medical Oncology [facility] 2019-07-24 2019-07-24 Outpatient Marycruz adkins [id number] 00:00:00 00:00:00 [facility] Medical Oncology [facility] 2019-07-15 2019-07-15 Marycruz Palacios [id number] 00:00:00 00:00:00 Dr. Ren adkins [facility] Oncology Oncology [facility] 2019-07-08 2019-07-08 Outpatient Marycruz adkins [id number] 00:00:00 00:00:00 [facility] Medical Oncology Oncology [facility] 2019-07-07 2019-07-07 Outpatient Marycruz adkins [id number] 00:00:00 00:00:00 [facility] Oncology Oncology [facility] 2019-07-01 2019-07-01 Ken [facility] [id number] 00:00:00 00:00:00 Genoveva Mcclure [facility] Oncology Oncology [facility] 2019-06-30 2019-06-30 Outpatient Leobardo [facility] 9 [id number] 12:50:00 12:50:00 Shai Mejias [id number] s [id number] and [id number] Multispecial ty Clinic, 2019-06-17 2019-06-17 Outpatient Marycruz Palacios rn [id number] 00:00:00 00:00:00 [facility] Oncology Oncology [facility] 2019-06-13 2019-06-13 Outpatient Marycruz adkins [id number] 00:00:00 00:00:00 [facility] Oncology Oncology [facility] 2019-06-10 2019-06-10 Philip [facility] [id number] 00:00:00 00:00:00 Dr. Ren Mcclure [facility] Oncology Oncology [facility] 2019-06-03 2019-06-03 Outpatient Marycruz adkins [id number] 00:00:00 00:00:00 [facility] Oncology Oncology [facility] 2019-05-27 2019-05-27 Outpatient Marycruz Palacios rn [id number] 00:00:00 00:00:00 [facility] Oncology Oncology [facility] 2019-05-20 2019-05-20 Outpatient Marycruz Palacios rn [id number] 00:00:00 00:00:00 [facility] Oncology Oncology [facility] 2019-05-15 2019-05-15 Outpatient Leobardo [facility] 9 [id number] 12:40:00 12:40:00 Shai Mejias [id number] s [id number] and [id number] Multispecial ty Clinic, 2019-05-07 2019-05-07 Outpatient Marycruz adkins [id number] 00:00:00 00:00:00 [facility] Oncology [facility] 2019-05-06 2019-05-06 Philip Palacios [facility] [id number] 00:00:00 00:00:00 [facility] 2019-04-22 2019-04-22 Outpatient Marycruz adkins [id number] 00:00:00 00:00:00 [facility] Oncology Oncology [facility] 2019-04-15 2019-04-15 Outpatient Marycruz Palacios rn [id number] 00:00:00 00:00:00 [facility] Oncology Oncology [facility] 2019-04-09 2019-04-09 Outpatient Marycruz adkins [id number] 00:00:00 00:00:00 [facility] Oncology Oncology [facility] 2019-04-08 2019-04-08 Outpatient Marycruz Palacios rn [id number] 00:00:00 00:00:00 [facility] Oncology Oncology [facility] 2019-04-01 2019-04-01 Marycruz Mart 2 [id number] 00:00:00 00:00:00 Paulette [facility] Oncology Oncology [facility] 2019-03-25 2019-03-25 Outpatient Marycruz Palacios rn [id number] 00:00:00 00:00:00 [facility] Oncology Oncology [facility] 2019-03-18 2019-03-18 Outpatient Marycruz Palacios rn [id number] 00:00:00 00:00:00 [facility] Oncology Oncology [facility] 2019-03-13 2019-03-13 [facility] [id number] 11:40:00 11:40:00 Shai Children [id number] s [id number] and [id number] Multispecial Clinic, 2019-03-11 2019-03-11 Outpatient Marycruz adkins [id number] 00:00:00 00:00:00 [facility] Oncology Oncology [facility] 2019-03-04 2019-03-04 Philip Gonzalez [facility] [id number] 00:00:00 00:00:00 Alia Gu [facility] Oncology Oncology [facility] 2019-02-25 2019-02-25 Outpatient Marycruz Palacios rn [id number] 00:00:00 00:00:00 [facility] Oncology Oncology [facility] 2019-02-18 2019-02-18 Outpatient Kenmohinder Tonigenna Gutierrez rn [id number] 00:00:00 00:00:00 [facility] Oncology Oncology [facility] 2019-02-17 2019-02-17 Outpatient Marycruz Joel n [id number] 00:00:00 00:00:00 [facility] Oncology Oncology [facility] 2019-02-11 2019-02-11 Outpatient KenmohinderMarycruz rn [id number] 00:00:00 00:00:00 [facility] Oncology Oncology [facility] 2019-02-05 2019-02-05 Outpatient Leobardo [facility] 3 [id number] 11:20:00 11:20:00 Shai Children???s [id number] and [id number] Multispecial [id number] Clini 2019-02-04 2019-02-04 Philip [facility]acios [facility] [id number] 00:00:00 00:00:00 Dr. Ren Mcclure [facility] Oncology Oncology [facility] 2019-01-28 2019-01-28 Outpatient Marycrzu Jole n [id number] 00:00:00 00:00:00 [facility] Oncology Oncology [facility] 2019-01-23 2019-01-23 Outpatient Marycruz Joel n [id number] 00:00:00 00:00:00 [facility] Oncology Oncology [facility] 2019-01-21 2019-01-21 Outpatient KenmohinderMarycruz rn [id number] 00:00:00 00:00:00 [facility] Oncology Oncology [facility] 2019-01-14 2019-01-14 Philip Palacios [facility] [id number] 00:00:00 00:00:00 Dr. Ren adkins [facility] Oncology Oncology [facility] 2019-01-07 2019-01-07 Philip Palacios [facility] [id number] 00:00:00 00:00:00 Dr. Ren adkins [facility] Oncology Oncology [facility] 2019-01-03 2019-01-03 Outpatient Marycruz Joel n [id number] 00:00:00 00:00:00 [facility] Oncology Oncology [facility] 2019-01-01 2019-01-01 Outpatient Leobardo [facility] 5 [id number] 09:20:00 09:20:00 Shai Children???s [id number] and [id number] Multispecial [id number] ty Clini 2019-01-01 2019-01-01 Outpatient Marycruz Joel n [id number] 00:00:00 00:00:00 [facility] Oncology Oncology [facility] 2018-12-31 2018-12-31 Outpatient KenmohinderMarycruz rn [id number] 00:00:00 00:00:00 [facility] Oncology Oncology [facility] 2018-12-25 2018-12-25 Outpatient Kenmohinder Marycruz Muñozhugo rn [id number] 00:00:00 00:00:00 [facility] Oncology Oncology [facility] 2018-12-24 2018-12-24 Outpatient Lanrekacie Marycruz Muñozhugo rn [id number] 00:00:00 00:00:00 [facility] Oncology Oncology [facility] 2018-12-17 2018-12-17 Outpatient Lanrekacie Marycruz Muñozhugo rn [id number] 00:00:00 00:00:00 [facility] Oncology Oncology [facility] 2018-12-12 2018-12-12 Outpatient Marycruz Joel n [id number] 00:00:00 00:00:00 [facility] Oncology Oncology [facility] 2018-12-10 2018-12-10 Lisa Marycruz Perez 2 [id number] 00:00:00 00:00:00 Alia Gu [facility] Oncology Oncology [facility] 2018-11-25 2018-11-25 Outpatient Marycruz Joel n [id number] 00:00:00 00:00:00 [facility] Oncology Oncology [facility] 2018-11-08 2018-11-08 Outpatient Marycruz Joel n [id number] 00:00:00 00:00:00 [facility] Oncology Oncology [facility] 2018-11-04 2018-11-04 Outpatient Leobardo [facility] 1 [id number] 16:20:00 16:20:00 Shai Children???s [id number] and [id number] Multispecial [id number] ty Clini 2018-11-01 2018-11-01 Outpatient Marycruz Joel n [id number] 00:00:00 00:00:00 [facility] Oncology Oncology [facility] 2018-10-28 2018-10-28 Outpatient [facility] [id number] 00:00:00 00:00:00 [facility] Oncology Oncology [facility] 2018-10-25 2018-10-25 Philip Gonzalez [facility] [id number] 00:00:00 00:00:00 Alia Gu [facility] Oncology Oncology [facility] 2018-10-04 2018-10-04 [facility] [id number] 00:00:00 00:00:00 Shai Mejias [id number] s [id number] and [id number] Multispecial ty Clinic, 2018-10-03 2018-10-03 Outpatient Marycruz Muñoz n [id number] 00:00:00 00:00:00 [facility] 2018-09-17 2018-09-17 Outpatient [facility] [id number] 00:00:00 00:00:00 [facility] Oncology [facility] 2018-09-03 2018-09-03 [facility] [id number] 00:00:00 00:00:00 Shai Mejias [id number] s [id number] and [id number] Multispecial ty Clinic, 2018-09-02 2018-09-02 Outpatient Leobardo [facility] 5 [id number] 10:40:00 10:40:00 Shai Mejias [id number]-[id number] s [id number] and [id number] Multispecial ty Clinic, 2018-08-13 2018-08-13 Outpatient Marycruz Palacios rn [id number] 00:00:00 00:00:00 [facility] Oncology Oncology [facility] 2018-08-04 2018-08-04 Outpatient Leobardo [facility] C [id number] 00:00:00 00:00:00 Shai Mejias [id number] s [id number] and [id number] Multispecial ty Clinic, 2018-07-30 2018-07-30 Outpatient Marycruz Palacios rn [id number] 00:00:00 00:00:00 [facility] Oncology Oncology [facility] 2018-07-15 2018-07-15 Outpatient Toni Toni n [id number] 00:00:00 00:00:00 [facility] Oncology Oncology [facility] 2018-07-01 2018-07-01 Outpatient [facility] 5 [id number] 10:00:00 10:00:00 Shai Mejias [id number] s [id number] and [id number] Multispecial ty Clinic, 2018-05-01 2018-05-01 [facility] [id number] 08:50:00 08:50:00 Shai Mejias O1I-76MS-I s [id number] and [id number] Multispecial ty Clinic[place] 2018-03-26 2018-03-26 [facility] D [id number] 14:40:00 14:40:00 Shai Mejias [id number] s [id number] and [id number] [place]ispecial [place] 2018-02-21 2018-02-21 [facility] 3 [id number] 13:30:00 13:30:00 Shai Mejias [id number] s [id number] and [id number] Multispecial [place] 2018-02-12 2018-02-12 Philip [facility] [id number] 00:00:00 00:00:00 Alia Gu [facility] Oncology Oncology [facility] 2018-02-06 2018-02-06 [facility] [id number] 00:00:00 00:00:00 [facility] Oncology Oncology [facility] 2018-02-05 2018-02-05 Outpatient Marycruz Palacios rn [id number] 00:00:00 00:00:00 [facility] Oncology Oncology [facility] 2017-12-25 2017-12-25 [facility] A [id number] 14:30:00 14:30:00 Shai Mejias [id number]-[id number] s [id number] and [id number] Multispecial [place] 2017-10-08 2017-10-08 Outpatient Ahlatrell, [facility] C [id number] 08:40:00 08:40:00 Shai Mejias [id number] s [id number] and [id number] Multispecial [place] 2017-09-24 2017-09-24 Outpatient [facility] 3 [id number] 09:00:00 09:00:00 Shai Mejias [id number] s [id number] and [id number] Multispecial [place] 2017-08-27 2017-08-27 Outpatient [facility] 0 [id number] 10:30:00 10:30:00 Shai Mejias [id number] s [id number] and F4DCDE Multispecial ty [place] 2017-08-22 2017-08-22 Outpatient Marycruz Joel [id number] 00:00:00 00:00:00 [facility] Oncology Oncology [facility] 2017-08-21 2017-08-21 Philip [facility] [id number] 00:00:00 00:00:00 Alia Gu [facility] Oncology Oncology [facility] 2017-07-30 2017-07-30 [facility] [id number] 10:30:00 10:30:00 Shai Mejias [id number] s [id number] and [id number] Multispecial [place] 2017-07-19 2017-07-19 Outpatient Marycruz Palacios rn [id number] 00:00:00 00:00:00 [facility] Oncology Oncology [facility] 2017 2017 Outpatient Marycruz Palacios rn [id number] 00:00:00 00:00:00 [facility] Oncology Oncology [facility] 2017-07-10 2017-07-10 Outpatient Marycruz Palacios rn [id number] 00:00:00 00:00:00 [facility] Oncology Oncology [facility] 2017-07-02 2017-07-02 [facility] [id number] 10:30:00 10:30:00 Shai Mejias [id number] s [id number] and [id number] Multispecial [place] 2017-06-09 2017-06-09 [facility] 4 [id number] 14:00:00 14:00:00 Shai Mejias [id number] s [id number] and [id number] [facility] 2017-05-14 2017-05-14 [facility] 1 [id number] 13:40:00 13:40:00 Shai Mejias [id number] s [id number] and [id number] [facility] [place] [facility] 2017-04-09 2017-04-09 [facility] [id number] 13:00:00 13:00:00 Shai Mejias [id number] s [id number] and [id number] [facility] 2017-03-08 2017-03-08 [facility] 1 [id number] 08:00:00 08:00:00 Shai Mejias [id number] s [id number] and [id number] [facility] [place] 2017-02-06 2017-02-06 [facility] 9 [id number] 07:50:00 07:50:00 Shai Mejias [id number] s [id number] and [id number] [facility] [place] 2017-01-11 2017-01-11 Outpatient Marycruz Palacios rn [id number] 00:00:00 00:00:00 [facility] On[facility] [place] 2017-01-10 2017-01-10 Philip Gonzalez [facility] [id number] 00:00:00 00:00:00 Alia Gu [facility] [place] 2017-01-09 2017-01-09 [facility] C [id number] 13:30:00 13:30:00 Shai Mejias [id number] s [id number] and [id number] [facility], JAZMINE 2017-01-04 2017-01-04 Outpatient Marycruz Joel n [id number] 00:00:00 00:00:00 [facility] Oncology Oncology [facility] 2017-01-03 2017-01-03 LisaPhilip [facility] [id number] 00:00:00 00:00:00 Alia Gu [facility] Oncology Oncology [facility] 2016-12-07 2016-12-07 Outpatient Leobardo [facility] B [id number] 09:20:00 09:20:00 Shai Mejias [id number] s [id number] and [id number] [facility], JAZMINE 2016-12-06 2016-12-06 Outpatient Kenmohinder Marycruz Muñozhugo gan [id number] 00:00:00 00:00:00 [facility] Oncology Oncology [facility] 2016-11-15 2016-11-15 [facility] [id number] 00:00:00 00:00:00 [facility] Oncology [facility] 2016-11-10 2016-11-10 [facility] [id number] 00:00:00 00:00:00 [facility] 2016-11-09 2016-11-09 Outpatient Leobardo [facility] A [id number] 08:40:00 08:40:00 Shai Mejias [id number] s [id number] and [id number] [facility] JAZMINE 2016-10-26 2016-10-26 Outpatient Toni Toni jed [id number] 00:00:00 00:00:00 [facility] Oncology Oncology [facility] 2016-10-11 2016-10-11 Outpatient Leobardo [facility] D [id number] 13:40:00 13:40:00 Shai Mejias [id number] s [id number] and [id number] [facility] 2016-09-11 2016-09-11 Outpatient Leobardo [facility] 1 [id number] 11:00:00 11:00:00 Shai Mejias [id number] s [id number] and [id number] [facility] 2016-08-14 2016-08-14 Outpatient heidy, [facility] F [id number] 11:10:00 11:10:00 Shai Mejias [id number] s [id number] and [id number] [facility] [place] [facility] 2016-07-17 2016-07-17 [facility] 1 [id number] 10:30:00 10:30:00 Shai Mejias [id number] s [id number] and [id number] [place] 2016-07-06 2016-07-06 Philip Gonzalez [facility] [id number] 00:00:00 00:00:00 Alia Mcclure [facility] Oncology Oncology [facility] 2016-06-26 2016-06-26 Outpatient Marycruz adkins [id number] 00:00:00 00:00:00 [facility] Oncology Oncology [facility] 2016-06-22 2016-06-22 Outpatient Marycruz Palacios rn [id number] 00:00[facility]00 [facility] 2016-06-13 2016-06-13 Outpatient Marycruz adkins [id number] 00:00:00 00:00:00 [facility] Oncology Oncology [facility] 2016-06-12 2016-06-12 Philip Gonzalez [facility] [id number] 00:00:00 00:00:00 Alia adkins [facility] Oncology Oncology [facility] 2016-05-25 2016-05-25 Outpatient Marycruz adkins [id number] 00:00:00 00:00:00 [facility] Oncology Oncology [facility] 2016-05-24 2016-05-24 Outpatient Marycruz Palacios rn [id number] 00:00:00 00:00:00 [facility] Oncology Oncology [facility] 2016-05-22 2016-05-22 Philip Palacios [facility] [id number] 00:00:00 00:00:00 Dr. Ren adkins [facility] Oncology Oncology [facility] 2015-11-26 2015-11-26 Outpatient Marycruz Palacios rn [id number] 00:00:00 00:00:00 [facility] Oncology Oncology [facility] 2015-11-22 2015-11-22 Outpatient Tonier Tonier n [id number] 00:00:00 00:00:00 [facility] Oncology Oncology [facility] 2015-11-16 2015-11-16 Outpatient [facility] Tonier n [id number] 00:00:00 00:00:00 [facility] Oncology Oncology [facility] 2015-11-15 2015-11-15 Outpatient Tonier Tonier n [id number] 00:00:00 00:00:00 [facility] Oncology Oncology [facility] 2015-11-11 2015-11-11 Outpatient Tonier Tonier n [id number] 00:00:00 00:00:00 [facility] Oncology Oncology [facility] 2015-11-10 2015-11-10 Outpatient Tonier Tonier n [id number] 00:00:00 00:00:00 [facility] Oncology Oncology [facility] 2015-11-01 2015-11-01 Outpatient Marycruz Muñozer n [id number] 00:00:00 00:00:00 [facility] Oncology Oncology [facility] 2015-10-28 2015-10-28 Outpatient Marycruz Muñozer n [id number] 00:00:00 00:00:00 [facility] Oncology Oncology [facility] 2015-10-19 2015-10-19 Outpatient Tonier Tonier n [id number] 00:00:00 00:00:00 [facility] Oncology Oncology [facility] Plan of Treatment Planned Activity Planned Date Details Comments Future Scheduled Test [code = ] Future Scheduled Test [code = ] Future Scheduled Test [code = ] Future Scheduled Test [code = ] Future Scheduled Test [code = ] Future Scheduled Test [code = ] Future Scheduled Test [code = ] Future Scheduled Test [code = ] Future Scheduled Test [code = ] Future Scheduled Test [code = ] Future Scheduled Test [code = ] Future Scheduled Test [code = ] Future Scheduled Test [code = ] Future Scheduled Test [code = ] Future Scheduled Test [code = ] Social History Social Habit Start Date Stop Date Comments Exposure to SARS-CoV-2 (event) Cigarettes smoked current (pack per 2019-07-24 00:00:00 00:00:00 day) - Reported Cigarette pack-years 2019-07-24 00:00:00 2019-07-24 00:00:00 Alcohol intake 2019-07-24 00:00:00 2019-07-24 00:00:00 Tobacco use and exposure 2019-07-24 00:00:00 2019-07-24 00:00:00 Smoking Status Start Date Stop Date Yes - but quit (former) 2020-05-28 00:00:00 2020-05-28 00:00 :00 History of tobacco use 1973-[birth year]-03 00:00: 00 Social History Observation Description Sex Male Vital Signs Vital Name Observation Time Observation Value Comments Systolic blood pressure 2019-10-27 14:26:00 167 mm[Hg] Diastolic blood pressure 2019-10-27 14:26:00 80 mm[Hg] Heart rate 2019-10-27 14:26:00 74 /min Body temperature 2019-10-27 14:26:00 36.83 [place] Respiratory rate 2019-10-27 14:26:00 18 /min Body weight 2019-10-27 14:26:00 84.3 kg BMI 2019-10-27 14:26:00 27.21 kg/m2 Oxygen saturation in Arterial blood by 2019-10-27 14:26:00 100 % Pulse oximetry BMI 2020-05-28 10:50:21 33.6700 BP walker 2020-05-28 10:50:21 85.0000 mm[Hg] Bdy height 2020-05-28 10:50:21 61.0000 [in_i] SaO2% BldA PulseOx 2020-05-28 10:50:21 97.0000 % Heart rate 2020-05-28 10:50:21 82.0000 /min Resp rate 2020-05-28 10:50:21 16.0000 /min BP sys 2020-05-28 10:50:21 127.0000 mm[Hg] Body temperature 2020-05-28 10:50:21 97.0000 [degF] Weight 2020-05-28 10:50:21 178.2000 [lb_av] BMI 2020-05-14 10:27:24 34.3900 BP walker 2020-05-14 10:27:24 88.0000 mm[Hg] Bdy height 2020-05-14 10:27:24 61.0000 [in_i] SaO2% BldA PulseOx 2020-05-14 10:27:24 99.0000 % Heart rate 2020-05-14 10:27:24 75.0000 /min Resp rate 2020-05-14 10:27:24 18.0000 /min BP sys 2020-05-14 10:27:24 144.0000 mm[Hg] Body temperature 2020-05-14 10:27:24 97.1000 [degF] Weight 2020-05-14 10:27:24 182.0000 [lb_av] BMI 2020-04-23 10:37:31 34.5800 BP walker 2020-04-23 10:37:31 83.0000 mm[Hg] Bdy height 2020-04-23 10:37:31 61.0000 [in_i] SaO2% BldA PulseOx 2020-04-23 10:37:31 99.0000 % Heart rate 2020-04-23 10:37:31 79.0000 /min Resp rate 2020-04-23 10:37:31 16.0000 /min BP sys 2020-04-23 10:37:31 146.0000 mm[Hg] Body temperature 2020-04-23 10:37:31 97.0000 [degF] Weight 2020-04-23 10:37:31 183.0000 [lb_av] BP walker 2020-04-09 09:58:01 83.0000 mm[Hg] Bdy height 2020-04-09 09:58:01 61.0000 [in_i] SaO2% BldA PulseOx 2020-04-09 09:58:01 98.0000 % Heart rate 2020-04-09 09:58:01 81.0000 /min Resp rate 2020-04-09 09:58:01 16.0000 /min BP sys 2020-04-09 09:58:01 132.0000 mm[Hg] Body temperature 2020-04-09 09:58:01 99.0000 [degF] Weight 2020-04-09 09:58:01 181.4000 [lb_av] BMI 2020-04-09 09:58:01 34.2800 BMI 2020-03-12 11:05:41 34.4600 BP walker 2020-03-12 11:05:41 81.0000 mm[Hg] Bdy height 2020-03-12 11:05:41 61.0000 [in_i] SaO2% BldA PulseOx 2020-03-12 11:05:41 96.0000 % Heart rate 2020-03-12 11:05:41 64.0000 /min Resp rate 2020-03-12 11:05:41 18.0000 /min BP sys 2020-03-12 11:05:41 151.0000 mm[Hg] Body temperature 2020-03-12 11:05:41 98.0000 [degF] Weight 2020-03-12 11:05:41 182.4000 [lb_av] BMI 2020-02-27 11:17:18 33.9700 BP walker 2020-02-27 11:17:18 83.0000 mm[Hg] Bdy height 2020-02-27 11:17:18 61.0000 [in_i] SaO2% BldA PulseOx 2020-02-27 11:17:18 98.0000 % Heart rate 2020-02-27 11:17:18 66.0000 /min Resp rate 2020-02-27 11:17:18 16.0000 /min BP sys 2020-02-27 11:17:18 138.0000 mm[Hg] Body temperature 2020-02-27 11:17:18 98.4000 [degF] Weight 2020-02-27 11:17:18 179.8000 [lb_av] BMI 2020-01-30 10:24:12 35.7100 BP walker 2020-01-30 10:24:12 85.0000 mm[Hg] Bdy height 2020-01-30 10:24:12 61.0000 [in_i] SaO2% BldA PulseOx 2020-01-30 10:24:12 97.0000 % Heart rate 2020-01-30 10:24:12 71.0000 /min Resp rate 2020-01-30 10:24:12 18.0000 /min BP sys 2020-01-30 10:24:12 170.0000 mm[Hg] Body temperature 2020-01-30 10:24:12 98.3000 [degF] Weight 2020-01-30 10:24:12 189.0000 [lb_av] BMI 2020-01-02 10:39:51 34.8400 BP walker 2020-01-02 10:39:51 96.0000 mm[Hg] Bdy height 2020-01-02 10:39:51 61.0000 [in_i] SaO2% BldA PulseOx 2020-01-02 10:39:51 98.0000 % Heart rate 2020-01-02 10:39:51 75.0000 /min Resp rate 2020-01-02 10:39:51 14.0000 /min BP sys 2020-01-02 10:39:51 169.0000 mm[Hg] Body temperature 2020-01-02 10:39:51 97.2000 [degF] Weight 2020-01-02 10:39:51 184.4000 [lb_av] BMI 2019-12-19 10:54:18 34.9200 BP walker 2019-12-19 10:54:18 88.0000 mm[Hg] Bdy height 2019-12-19 10:54:18 61.0000 [in_i] SaO2% BldA PulseOx 2019-12-19 10:54:18 96.0000 % Heart rate 2019-12-19 10:54:18 77.0000 /min Resp rate 2019-12-19 10:54:18 18.0000 /min BP sys 2019-12-19 10:54:18 145.0000 mm[Hg] Body temperature 2019-12-19 10:54:18 98.1000 [degF] Weight 2019-12-19 10:54:18 184.8000 [lb_av] BMI 2019-12-05 11:28:05 34.9200 BP walker 2019-12-05 11:28:05 72.0000 mm[Hg] Bdy height 2019-12-05 11:28:05 61.0000 [in_i] Heart rate 2019-12-05 11:28:05 76.0000 /min Resp rate 2019-12-05 11:28:05 16.0000 /min BP sys 2019-12-05 11:28:05 139.0000 mm[Hg] Body temperature 2019-12-05 11:28:05 98.4000 [degF] Weight 2019-12-05 11:28:05 184.8000 [lb_av] BMI 2019-11-21 12:53:48 34.7300 BP walker 2019-11-21 12:53:48 91.0000 mm[Hg] Bdy height 2019-11-21 12:53:48 61.0000 [in_i] SaO2% BldA PulseOx 2019-11-21 12:53:48 99.0000 % Heart rate 2019-11-21 12:53:48 84.0000 /min Resp rate 2019-11-21 12:53:48 16.0000 /min BP sys 2019-11-21 12:53:48 136.0000 mm[Hg] Body temperature 2019-11-21 12:53:48 99.3000 [degF] Weight 2019-11-21 12:53:48 183.8000 [lb_av] BMI 2019-11-04 09:26:41 34.9900 BP walker 2019-11-04 09:26:41 75.0000 mm[Hg] Bdy height 2019-11-04 09:26:41 61.0000 [in_i] SaO2% BldA PulseOx 2019-11-04 09:26:41 99.0000 % Heart rate 2019-11-04 09:26:41 82.0000 /min Resp rate 2019-11-04 09:26:41 16.0000 /min BP sys 2019-11-04 09:26:41 156.0000 mm[Hg] Body temperature 2019-11-04 09:26:41 99.0000 [degF] Weight 2019-11-04 09:26:41 185.2000 [lb_av] BMI 2019-10-21 13:43:35 34.1600 BP walker 2019-10-21 13:43:35 73.0000 mm[Hg] Bdy height 2019-10-21 13:43:35 61.0000 [in_i] SaO2% BldA PulseOx 2019-10-21 13:43:35 97.0000 % Heart rate 2019-10-21 13:43:35 77.0000 /min Resp rate 2019-10-21 13:43:35 16.0000 /min BP sys 2019-10-21 13:43:35 126.0000 mm[Hg] Body temperature 2019-10-21 13:43:35 96.3000 [degF] Weight 2019-10-21 13:43:35 180.8000 [lb_av] Bdy height 2019-10-21 13:16:06 61.0000 [in_i] Body temperature 2019-10-21 13:16:06 96.3000 [degF] BMI 2019-10-07 11:00:34 34.2800 BP walker 2019-10-07 11:00:34 90.0000 mm[Hg] Bdy height 2019-10-07 11:00:34 61.0000 [in_i] SaO2% BldA PulseOx 2019-10-07 11:00:34 98.0000 % Heart rate 2019-10-07 11:00:34 83.0000 /min Resp rate 2019-10-07 11:00:34 20.0000 /min BP sys 2019-10-07 11:00:34 158.0000 mm[Hg] Body temperature 2019-10-07 11:00:34 98.8000 [degF] Weight 2019-10-07 11:00:34 181.4000 [lb_av] BMI 2019-09-23 11:02:03 34.9600 BP walker 2019-09-23 11:02:03 98.0000 mm[Hg] Bdy height 2019-09-23 11:02:03 61.0000 [in_i] SaO2% BldA PulseOx 2019-09-23 11:02:03 98.0000 % Heart rate 2019-09-23 11:02:03 80.0000 /min Resp rate 2019-09-23 11:02:03 24.0000 /min BP sys 2019-09-23 11:02:03 154.0000 mm[Hg] Body temperature 2019-09-23 11:02:03 98.6000 [degF] Weight 2019-09-23 11:02:03 185.0000 [lb_av] BMI 2019-09-09 12:07:16 34.5000 BP walker 2019-09-09 12:07:16 89.0000 mm[Hg] Bdy height 2019-09-09 12:07:16 61.0000 [in_i] SaO2% BldA PulseOx 2019-09-09 12:07:16 97.0000 % Heart rate 2019-09-09 12:07:16 90.0000 /min Resp rate 2019-09-09 12:07:16 18.0000 /min BP sys 2019-09-09 12:07:16 149.0000 mm[Hg] Body temperature 2019-09-09 12:07:16 98.5000 [degF] Weight 2019-09-09 12:07:16 182.6000 [lb_av] BMI 2019-08-26 11:05:59 34.5000 BP walker 2019-08-26 11:05:59 98.0000 mm[Hg] Bdy height 2019-08-26 11:05:59 61.0000 [in_i] SaO2% BldA PulseOx 2019-08-26 11:05:59 97.0000 % Heart rate 2019-08-26 11:05:59 81.0000 /min Resp rate 2019-08-26 11:05:59 20.0000 /min BP sys 2019-08-26 11:05:59 174.0000 mm[Hg] Body temperature 2019-08-26 11:05:59 98.7000 [degF] Weight 2019-08-26 11:05:59 182.6000 [lb_av] BMI 2019-08-12 11:55:13 34.3900 BP walker 2019-08-12 11:55:13 83.0000 mm[Hg] Bdy height 2019-08-12 11:55:13 61.0000 [in_i] SaO2% BldA PulseOx 2019-08-12 11:55:13 98.0000 % Heart rate 2019-08-12 11:55:13 76.0000 /min Resp rate 2019-08-12 11:55:13 20.0000 /min BP sys 2019-08-12 11:55:13 141.0000 mm[Hg] Body temperature 2019-08-12 11:55:13 99.0000 [degF] Weight 2019-08-12 11:55:13 182.0000 [lb_av] BMI 2019-07-15 13:39:58 34.2400 BP walker 2019-07-15 13:39:58 83.0000 mm[Hg] Bdy height 2019-07-15 13:39:58 61.0000 [in_i] SaO2% BldA PulseOx 2019-07-15 13:39:58 99.0000 % Heart rate 2019-07-15 13:39:58 64.0000 /min Resp rate 2019-07-15 13:39:58 16.0000 /min BP sys 2019-07-15 13:39:58 161.0000 mm[Hg] Body temperature 2019-07-15 13:39:58 97.9000 [degF] Weight 2019-07-15 13:39:58 181.2000 [lb_av] BMI 2019-07-01 11:37:20 33.9700 BP walker 2019-07-01 11:37:20 72.0000 mm[Hg] Bdy height 2019-07-01 11:37:20 61.0000 [in_i] SaO2% BldA PulseOx 2019-07-01 11:37:20 98.0000 % Heart rate 2019-07-01 11:37:20 75.0000 /min Resp rate 2019-07-01 11:37:20 16.0000 /min BP sys 2019-07-01 11:37:20 141.0000 mm[Hg] Body temperature 2019-07-01 11:37:20 98.1000 [degF] Weight 2019-07-01 11:37:20 179.8000 [lb_av] BMI 2019-06-17 12:16:20 32.9200 BP walker 2019-06-17 12:16:20 91.0000 mm[Hg] Bdy height 2019-06-17 12:16:20 61.0000 [in_i] SaO2% BldA PulseOx 2019-06-17 12:16:20 96.0000 % Heart rate 2019-06-17 12:16:20 74.0000 /min Resp rate 2019-06-17 12:16:20 16.0000 /min BP sys 2019-06-17 12:16:20 152.0000 mm[Hg] Body temperature 2019-06-17 12:16:20 98.0000 [degF] Weight 2019-06-17 12:16:20 174.2000 [lb_av] BMI 2019-06-10 11:36:25 33.0700 BP walker 2019-06-10 11:36:25 63.0000 mm[Hg] Bdy height 2019-06-10 11:36:25 61.0000 [in_i] SaO2% BldA PulseOx 2019-06-10 11:36:25 97.0000 % Heart rate 2019-06-10 11:36:25 97.0000 /min Resp rate 2019-06-10 11:36:25 16.0000 /min BP sys 2019-06-10 11:36:25 135.0000 mm[Hg] Body temperature 2019-06-10 11:36:25 97.1000 [degF] Weight 2019-06-10 11:36:25 175.0000 [lb_av] BMI 2019-06-03 12:07:28 32.8800 BP walker 2019-06-03 12:07:28 65.0000 mm[Hg] Bdy height 2019-06-03 12:07:28 61.0000 [in_i] SaO2% BldA PulseOx 2019-06-03 12:07:28 97.0000 % Heart rate 2019-06-03 12:07:28 71.0000 /min Resp rate 2019-06-03 12:07:28 20.0000 /min BP sys 2019-06-03 12:07:28 120.0000 mm[Hg] Body temperature 2019-06-03 12:07:28 98.7000 [degF] Weight 2019-06-03 12:07:28 174.0000 [lb_av] BMI 2019-05-27 12:04:27 33.2900 BP walker 2019-05-27 12:04:27 80.0000 mm[Hg] Bdy height 2019-05-27 12:04:27 61.0000 [in_i] SaO2% BldA PulseOx 2019-05-27 12:04:27 98.0000 % Heart rate 2019-05-27 12:04:27 75.0000 /min Resp rate 2019-05-27 12:04:27 20.0000 /min BP sys 2019-05-27 12:04:27 141.0000 mm[Hg] Body temperature 2019-05-27 12:04:27 98.2000 [degF] Weight 2019-05-27 12:04:27 176.2000 [lb_av] BMI 2019-05-20 12:06:11 33.2900 BP walker 2019-05-20 12:06:11 80.0000 mm[Hg] Bdy height 2019-05-20 12:06:11 61.0000 [in_i] SaO2% BldA PulseOx 2019-05-20 12:06:11 99.0000 % Heart rate 2019-05-20 12:06:11 77.0000 /min Resp rate 2019-05-20 12:06:11 16.0000 /min BP sys 2019-05-20 12:06:11 151.0000 mm[Hg] Body temperature 2019-05-20 12:06:11 99.4000 [degF] Weight 2019-05-20 12:06:11 176.2000 [lb_av] BMI 2019-05-06 11:46:13 34.8400 BP walker 2019-05-06 11:46:13 61.0000 mm[Hg] Bdy height 2019-05-06 11:46:13 61.0000 [in_i] Heart rate 2019-05-06 11:46:13 78.0000 /min Resp rate 2019-05-06 11:46:13 14.0000 /min BP sys 2019-05-06 11:46:13 145.0000 mm[Hg] Body temperature 2019-05-06 11:46:13 98.3000 [degF] Weight 2019-05-06 11:46:13 184.4000 [lb_av] BP walker 2019-04-22 12:24:14 71.0000 mm[Hg] Bdy height 2019-04-22 12:24:14 61.0000 [in_i] SaO2% BldA PulseOx 2019-04-22 12:24:14 97.0000 % Heart rate 2019-04-22 12:24:14 57.0000 /min Resp rate 2019-04-22 12:24:14 20.0000 /min BP sys 2019-04-22 12:24:14 127.0000 mm[Hg] Body temperature 2019-04-22 12:24:14 98.4000 [degF] Weight 2019-04-22 12:24:14 175.8000 [lb_av] BMI 2019-04-22 12:24:14 33.2200 BMI 2019-04-15 12:28:49 34.2000 BP walker 2019-04-15 12:28:49 69.0000 mm[Hg] Bdy height 2019-04-15 12:28:49 61.0000 [in_i] SaO2% BldA PulseOx 2019-04-15 12:28:49 98.0000 % Heart rate 2019-04-15 12:28:49 66.0000 /min Resp rate 2019-04-15 12:28:49 16.0000 /min BP sys 2019-04-15 12:28:49 147.0000 mm[Hg] Body temperature 2019-04-15 12:28:49 98.6000 [degF] Weight 2019-04-15 12:28:49 181.0000 [lb_av] BMI 2019-04-08 12:31:30 33.9000 BP walker 2019-04-08 12:31:30 74.0000 mm[Hg] Bdy height 2019-04-08 12:31:30 61.0000 [in_i] SaO2% BldA PulseOx 2019-04-08 12:31:30 96.0000 % Heart rate 2019-04-08 12:31:30 66.0000 /min Resp rate 2019-04-08 12:31:30 16.0000 /min BP sys 2019-04-08 12:31:30 144.0000 mm[Hg] Body temperature 2019-04-08 12:31:30 98.2000 [degF] Weight 2019-04-08 12:31:30 179.4000 [lb_av] BMI 2019-04-01 11:42:27 34.0900 BP walker 2019-04-01 11:42:27 75.0000 mm[Hg] Bdy height 2019-04-01 11:42:27 61.0000 [in_i] SaO2% BldA PulseOx 2019-04-01 11:42:27 98.0000 % Heart rate 2019-04-01 11:42:27 64.0000 /min Resp rate 2019-04-01 11:42:27 17.0000 /min BP sys 2019-04-01 11:42:27 139.0000 mm[Hg] Body temperature 2019-04-01 11:42:27 97.8000 [degF] Weight 2019-04-01 11:42:27 180.4000 [lb_av] BMI 2019-03-25 12:18:47 34.8000 BP walker 2019-03-25 12:18:47 63.0000 mm[Hg] Bdy height 2019-03-25 12:18:47 61.0000 [in_i] SaO2% BldA PulseOx 2019-03-25 12:18:47 98.0000 % Heart rate 2019-03-25 12:18:47 65.0000 /min Resp rate 2019-03-25 12:18:47 20.0000 /min BP sys 2019-03-25 12:18:47 124.0000 mm[Hg] Body temperature 2019-03-25 12:18:47 98.2000 [degF] Weight 2019-03-25 12:18:47 184.2000 [lb_av] BMI 2019-03-18 12:18:32 34.4300 BP walker 2019-03-18 12:18:32 76.0000 mm[Hg] Bdy height 2019-03-18 12:18:32 61.0000 [in_i] SaO2% BldA PulseOx 2019-03-18 12:18:32 96.0000 % Heart rate 2019-03-18 12:18:32 66.0000 /min Resp rate 2019-03-18 12:18:32 20.0000 /min BP sys 2019-03-18 12:18:32 155.0000 mm[Hg] Body temperature 2019-03-18 12:18:32 98.7000 [degF] Weight 2019-03-18 12:18:32 182.2000 [lb_av] BMI 2019-03-11 12:10:28 35.2600 BP walker 2019-03-11 12:10:28 69.0000 mm[Hg] Bdy height 2019-03-11 12:10:28 61.0000 [in_i] SaO2% BldA PulseOx 2019-03-11 12:10:28 98.0000 % Heart rate 2019-03-11 12:10:28 74.0000 /min Resp rate 2019-03-11 12:10:28 16.0000 /min BP sys 2019-03-11 12:10:28 128.0000 mm[Hg] Body temperature 2019-03-11 12:10:28 98.7000 [degF] Weight 2019-03-11 12:10:28 186.6000 [lb_av] BMI 2019-03-04 11:54:34 34.8800 BP walker 2019-03-04 11:54:34 73.0000 mm[Hg] Bdy height 2019-03-04 11:54:34 61.0000 [in_i] Heart rate 2019-03-04 11:54:34 70.0000 /min Resp rate 2019-03-04 11:54:34 14.0000 /min BP sys 2019-03-04 11:54:34 141.0000 mm[Hg] Body temperature 2019-03-04 11:54:34 97.2000 [degF] Weight 2019-03-04 11:54:34 184.6000 [lb_av] BMI 2019-02-25 12:27:55 35.5200 BP walker 2019-02-25 12:27:55 75.0000 mm[Hg] Bdy height 2019-02-25 12:27:55 61.0000 [in_i] SaO2% BldA PulseOx 2019-02-25 12:27:55 99.0000 % Heart rate 2019-02-25 12:27:55 65.0000 /min Resp rate 2019-02-25 12:27:55 18.0000 /min BP sys 2019-02-25 12:27:55 136.0000 mm[Hg] Body temperature 2019-02-25 12:27:55 98.7000 [degF] Weight 2019-02-25 12:27:55 188.0000 [lb_av] BMI 2019-02-18 12:53:16 35.4100 BP walker 2019-02-18 12:53:16 79.0000 mm[Hg] Bdy height 2019-02-18 12:53:16 61.0000 [in_i] SaO2% BldA PulseOx 2019-02-18 12:53:16 99.0000 % Heart rate 2019-02-18 12:53:16 76.0000 /min Resp rate 2019-02-18 12:53:16 16.0000 /min BP sys 2019-02-18 12:53:16 147.0000 mm[Hg] Body temperature 2019-02-18 12:53:16 99.1000 [degF] Weight 2019-02-18 12:53:16 187.4000 [lb_av] BMI 2019-02-11 12:27:56 35.3000 BP walker 2019-02-11 12:27:56 87.0000 mm[Hg] Bdy height 2019-02-11 12:27:56 61.0000 [in_i] SaO2% BldA PulseOx 2019-02-11 12:27:56 98.0000 % Heart rate 2019-02-11 12:27:56 74.0000 /min Resp rate 2019-02-11 12:27:56 18.0000 /min BP sys 2019-02-11 12:27:56 158.0000 mm[Hg] Body temperature 2019-02-11 12:27:56 99.1000 [degF] Weight 2019-02-11 12:27:56 186.8000 [lb_av] BMI 2019-02-04 11:43:26 35.6000 BP walker 2019-02-04 11:43:26 76.0000 mm[Hg] Bdy height 2019-02-04 11:43:26 61.0000 [in_i] SaO2% BldA PulseOx 2019-02-04 11:43:26 95.0000 % Heart rate 2019-02-04 11:43:26 68.0000 /min Resp rate 2019-02-04 11:43:26 18.0000 /min BP sys 2019-02-04 11:43:26 144.0000 mm[Hg] Body temperature 2019-02-04 11:43:26 98.5000 [degF] Weight 2019-02-04 11:43:26 188.4000 [lb_av] BMI 2019-01-28 12:05:16 36.5800 BP walker 2019-01-28 12:05:16 85.0000 mm[Hg] Bdy height 2019-01-28 12:05:16 61.0000 [in_i] SaO2% BldA PulseOx 2019-01-28 12:05:16 97.0000 % Heart rate 2019-01-28 12:05:16 75.0000 /min Resp rate 2019-01-28 12:05:16 20.0000 /min BP sys 2019-01-28 12:05:16 147.0000 mm[Hg] Body temperature 2019-01-28 12:05:16 98.1000 [degF] Weight 2019-01-28 12:05:16 193.6000 [lb_av] BMI 2019-01-21 11:41:26 35.7900 BP walker 2019-01-21 11:41:26 82.0000 mm[Hg] Bdy height 2019-01-21 11:41:26 61.0000 [in_i] SaO2% BldA PulseOx 2019-01-21 11:41:26 98.0000 % Heart rate 2019-01-21 11:41:26 80.0000 /min Resp rate 2019-01-21 11:41:26 20.0000 /min BP sys 2019-01-21 11:41:26 145.0000 mm[Hg] Body temperature 2019-01-21 11:41:26 99.2000 [degF] Weight 2019-01-21 11:41:26 189.4000 [lb_av] BMI 2019-01-14 12:07:32 35.3000 BP walker 2019-01-14 12:07:32 71.0000 mm[Hg] Bdy height 2019-01-14 12:07:32 61.0000 [in_i] SaO2% BldA PulseOx 2019-01-14 12:07:32 96.0000 % Heart rate 2019-01-14 12:07:32 77.0000 /min Resp rate 2019-01-14 12:07:32 16.0000 /min BP sys 2019-01-14 12:07:32 141.0000 mm[Hg] Body temperature 2019-01-14 12:07:32 98.0000 [degF] Weight 2019-01-14 12:07:32 186.8000 [lb_av] BMI 2019-01-07 14:05:15 35.8600 BP walker 2019-01-07 14:05:15 80.0000 mm[Hg] Bdy height 2019-01-07 14:05:15 61.0000 [in_i] SaO2% BldA PulseOx 2019-01-07 14:05:15 98.0000 % Heart rate 2019-01-07 14:05:15 83.0000 /min Resp rate 2019-01-07 14:05:15 18.0000 /min BP sys 2019-01-07 14:05:15 155.0000 mm[Hg] Body temperature 2019-01-07 14:05:15 98.1000 [degF] Weight 2019-01-07 14:05:15 189.8000 [lb_av] BMI 2018-12-31 13:40:30 36.1600 BP walker 2018-12-31 13:40:30 81.0000 mm[Hg] Bdy height 2018-12-31 13:40:30 61.0000 [in_i] SaO2% BldA PulseOx 2018-12-31 13:40:30 99.0000 % Heart rate 2018-12-31 13:40:30 86.0000 /min Resp rate 2018-12-31 13:40:30 22.0000 /min BP sys 2018-12-31 13:40:30 171.0000 mm[Hg] Body temperature 2018-12-31 13:40:30 99.4000 [degF] Weight 2018-12-31 13:40:30 191.4000 [lb_av] BMI 2018-12-25 12:33:16 36.7700 BP walker 2018-12-25 12:33:16 87.0000 mm[Hg] Bdy height 2018-12-25 12:33:16 61.0000 [in_i] SaO2% BldA PulseOx 2018-12-25 12:33:16 98.0000 % Heart rate 2018-12-25 12:33:16 86.0000 /min Resp rate 2018-12-25 12:33:16 18.0000 /min BP sys 2018-12-25 12:33:16 142.0000 mm[Hg] Body temperature 2018-12-25 12:33:16 99.1000 [degF] Weight 2018-12-25 12:33:16 194.6000 [lb_av] BMI 2018-12-24 13:42:00 36.5100 BP walker 2018-12-24 13:42:00 73.0000 mm[Hg] Bdy height 2018-12-24 13:42:00 61.0000 [in_i] SaO2% BldA PulseOx 2018-12-24 13:42:00 98.0000 % Heart rate 2018-12-24 13:42:00 88.0000 /min Resp rate 2018-12-24 13:42:00 18.0000 /min BP sys 2018-12-24 13:42:00 143.0000 mm[Hg] Body temperature 2018-12-24 13:42:00 99.6000 [degF] Weight 2018-12-24 13:42:00 193.2000 [lb_av] BMI 2018-12-17 13:49:19 36.1600 BP walker 2018-12-17 13:49:19 73.0000 mm[Hg] Bdy height 2018-12-17 13:49:19 61.0000 [in_i] SaO2% BldA PulseOx 2018-12-17 13:49:19 99.0000 % Heart rate 2018-12-17 13:49:19 91.0000 /min Resp rate 2018-12-17 13:49:19 20.0000 /min BP sys 2018-12-17 13:49:19 139.0000 mm[Hg] Body temperature 2018-12-17 13:49:19 99.5000 [degF] Weight 2018-12-17 13:49:19 191.4000 [lb_av] BMI 2018-12-10 13:02:02 35.3300 BP walker 2018-12-10 13:02:02 79.0000 mm[Hg] Bdy height 2018-12-10 13:02:02 61.0000 [in_i] Heart rate 2018-12-10 13:02:02 83.0000 /min Resp rate 2018-12-10 13:02:02 16.0000 /min BP sys 2018-12-10 13:02:02 167.0000 mm[Hg] Body temperature 2018-12-10 13:02:02 97.8000 [degF] Weight 2018-12-10 13:02:02 187.0000 [lb_av] BMI 2018-10-25 13:30:51 33.2200 BP walker 2018-10-25 13:30:51 74.0000 mm[Hg] Bdy height 2018-10-25 13:30:51 61.0000 [in_i] Heart rate 2018-10-25 13:30:51 70.0000 /min Resp rate 2018-10-25 13:30:51 16.0000 /min BP sys 2018-10-25 13:30:51 149.0000 mm[Hg] Body temperature 2018-10-25 13:30:51 98.1000 [degF] Weight 2018-10-25 13:30:51 175.8000 [lb_av] BMI 2018-02-12 10:29:44 35.2600 BP walker 2018-02-12 10:29:44 80.0000 mm[Hg] Bdy height 2018-02-12 10:29:44 61.0000 [in_i] Heart rate 2018-02-12 10:29:44 74.0000 /min Resp rate 2018-02-12 10:29:44 18.0000 /min BP sys 2018-02-12 10:29:44 132.0000 mm[Hg] Body temperature 2018-02-12 10:29:44 97.8000 [degF] Weight 2018-02-12 10:29:44 186.6000 [lb_av] BMI 2017-08-21 09:41:29 38.2800 BP walker 2017-08-21 09:41:29 62.0000 mm[Hg] Bdy height 2017-08-21 09:41:29 61.0000 [in_i] Heart rate 2017-08-21 09:41:29 74.0000 /min Resp rate 2017-08-21 09:41:29 16.0000 /min BP sys 2017-08-21 09:41:29 118.0000 mm[Hg] Body temperature 2017-08-21 09:41:29 97.0000 [degF] Weight 2017-08-21 09:41:29 202.6000 [lb_av] BMI 2017-01-10 13:41:57 36.5400 BP walker 2017-01-10 13:41:57 77.0000 mm[Hg] Bdy height 2017-01-10 13:41:57 61.0000 [in_i] Heart rate 2017-01-10 13:41:57 72.0000 /min Resp rate 2017-01-10 13:41:57 18.0000 /min BP sys 2017-01-10 13:41:57 139.0000 mm[Hg] Body temperature 2017-01-10 13:41:57 97.8000 [degF] Weight 2017-01-10 13:41:57 193.4000 [lb_av] BMI 2017-01-03 13:10:41 36.4300 BP walker 2017-01-03 13:10:41 72.0000 mm[Hg] Bdy height 2017-01-03 13:10:41 61.0000 [in_i] Heart rate 2017-01-03 13:10:41 73.0000 /min Resp rate 2017-01-03 13:10:41 21.0000 /min BP sys 2017-01-03 13:10:41 133.0000 mm[Hg] Body temperature 2017-01-03 13:10:41 97.9000 [degF] Weight 2017-01-03 13:10:41 192.8000 [lb_av] BMI 2016-07-06 11:25:54 38.0500 BP walker 2016-07-06 11:25:54 88.0000 mm[Hg] Bdy height 2016-07-06 11:25:54 61.0000 [in_i] Heart rate 2016-07-06 11:25:54 72.0000 /min Resp rate 2016-07-06 11:25:54 18.0000 /min BP sys 2016-07-06 11:25:54 144.0000 mm[Hg] Body temperature 2016-07-06 11:25:54 96.7000 [degF] Weight 2016-07-06 11:25:54 201.4000 [lb_av] BMI 2016-06-12 09:08:09 37.3700 BP walker 2016-06-12 09:08:09 87.0000 mm[Hg] Bdy height 2016-06-12 09:08:09 61.0000 [in_i] Heart rate 2016-06-12 09:08:09 75.0000 /min Resp rate 2016-06-12 09:08:09 18.0000 /min BP sys 2016-06-12 09:08:09 159.0000 mm[Hg] Body temperature 2016-06-12 09:08:09 97.7000 [degF] Weight 2016-06-12 09:08:09 197.8000 [lb_av] BMI 2016-05-22 08:55:37 37.1900 BP walker 2016-05-22 08:55:37 92.0000 mm[Hg] Bdy height 2016-05-22 08:55:37 61.0000 [in_i] Heart rate 2016-05-22 08:55:37 84.0000 /min Resp rate 2016-05-22 08:55:37 14.0000 /min BP sys 2016-05-22 08:55:37 152.0000 mm[Hg] Body temperature 2016-05-22 08:55:37 97.7000 [degF] Weight 2016-05-22 08:55:37 196.8000 [lb_av] Hospital Discharge Instructions Patient Instructions Pratibha Holm, MARAH - 10/27/2019 1:00 PM EDTTELEPHONE VISIT WITH Dr Jeong 11/05 @ 10:15 to review results of skin biopsy, recent labs SKIN BIOPSY AND EXCISION INSTRUCTIONS You have recently undergone a biopsy or excision of a skin lesion. The following are answers to commonly asked questions: What supplies do I need? It is recommended that you purchase the following: ? Plain Vaseline, Polysporin or Aquaphor Healing Ointment ? A non- stick dressing (such as TELFA) or other bandage How do I care for the site? ? Keep the surgical dressing in place for the first 24 hours. ? After 24 hours, remove the bandage and gently cleanse the wound with warm soap and water. A Q- tip or clean gauze can be used to clean the surface. ? Apply a layer of Vaseline (petroleum jelly), Polysporin, or Aquaphor Healing Ointment and cover with TELFA or other non-stick dressing. Hold in place with tape or other bandage. ? The bandage does not have to be changed as long as the site is clean, bandage is intact, and wound is covered by ointment. However, it is fine to reapply the ointment and bandage whenever necessary. The site should remain covered until the wound is completely healed. What if the site starts to bleed? ? First, you should remove all bandages. ? Sit or lie down and apply firm pressure for 20 minutes with a clean, dry bandage. Watch the clock and do not remove the bandage to check the site during the 20 minutes. ? If bleeding continues, repeat. If the site continues to bleed after the second 20 minutes of pressure, contact your physician. If it is after standard office hours, call the [facility] Donor Relations Officer ([phone]) and ask to have the ergonomic specialist Dermatology Physician paged. Will there be pain? Pain is typically minimal. If you do have pain, and your other medical conditions allow, Tylenol is recommended. If medically possible, avoid all medications that contain aspirin for at least 1 week. (Bufferin, Anacin, Excedrin, and BC Powder all contain aspirin). If the pain is severe contact your physician. Do I need to have sutures removed? If sutures were used to close the skin, you will need to have the sutures removed. You can return to the dermatology clinic and have these removed by a nurse. Typically, sutures on the face are removed after 5 to 7 days. Sutures on the trunk and extremities are removed between 10 and 14 days. Is the site infected? It is uncommon to get an infection following a skin procedure. Redness is expected near the site. This is typically due to inflammation as your body attempts to repair the area. Sometimes an allergy will develop to the adhesive in the bandage or to the antibacterial ointment that will result in redness and itching. If your wound is becoming more painful, the redness around the area is spreading, there is a discharge, and/oryou develop fevers, you should contact your physician. When will the results be available? Your biopsy will be sent to a pathologist for a diagnosis. This usually takes about one week. However, depending on the complexity, it can take 2 weeks or longer. If you have not received notification of resultsby mail or telephone in 3 weeks, please contact the office. documented in this encounter
== END 2020-05-29 14:15 | disposition home or self-care (01) ==
LOC: ER 11:57
DX: F41.9 Anxiety disorder, unspecified (principal); I12.0 Hypertensive chronic kidney disease with stage 5 chronic kidney disease or end stage renal disease; N18.6 End stage renal disease; Z99.2 Dependence on renal dialysis
CPT/HCPCS: 36415; 71046; 80053; 83735; 85025; 85610; 93005; 93010; 99285